=== PATIENT | male | born 1945 | race Caucasian/White ===

== ENCOUNTER → 2016-06-29 | Outpatient (CLI) | payer OTHER, BC ==
[~2016-06-29] MED LIST: ASPI81TA28 PO; CALC600T9 PO; EZET10TA47 PO; IBUP-103 PO; IPRA1AER2 INH; LEVO175T3 PO; MULT-506 PO; OMEG10007 PO
[2016-06-29 13:24] LABS: THYROID STIMULATING HORMONE 1.72 uIu/ml (0.300-4.500)
== END | disposition home or self-care (01) ==
LOC: C.LABBFT 08:13
PROVIDERS: ATTEND Internal Medicine Endocrinology, Diabetes & Metabolism
DX: E89.0 Postprocedural hypothyroidism (principal)

== ENCOUNTER → 2016-08-05 | Outpatient (CLI) | payer OTHER, BC ==
[2016-08-05 12:59] LABS: BLOOD UREA NITROGEN 22 mg/dl (7-18); BUN/CREATININE RATIO 30.9 (10-20); CALCIUM 9.1 mg/dl (8.5-10.1); CARBON DIOXIDE 27 mmol/L (21-32); CHLORIDE 107 mmol/L (98-107); GLUCOSE 99 mg/dl (70-99); POTASSIUM 4.3 mmol/L (3.5-5.1); SODIUM 141 mmol/L (136-145)
[2016-08-05 13:06] LABS: ESTIMATED AVERAGE GLUCOSE 114 mg/dl; HA1C FLAG Normal (Normal)
[2016-08-05 13:19] LABS: CHOLESTEROL 197 mg/dl (0-200); CHOLESTEROL/HDL RATIO 4.2; HDL CHOLESTEROL 47 mg/dl; TRIGLYCERIDES 218 mg/dl (0-150); VERY LOW DENSITY LIPOPROT CALC 44 mg/dl
== END | disposition home or self-care (01) ==
LOC: C.LABSPEC 12:21
PROVIDERS: ATTEND Internal Medicine
DX: E11.9 Type 2 diabetes mellitus without complications (principal); E78.5 Hyperlipidemia, unspecified

== ENCOUNTER → 2016-09-06 | Outpatient (CLI) | payer OTHER, BC ==
[2016-09-06 12:39] LABS: THYROID STIMULATING HORMONE 0.237 uIu/ml (0.300-4.500)
== END | disposition home or self-care (01) ==
LOC: C.LABBFT 07:50
PROVIDERS: ATTEND Internal Medicine Endocrinology, Diabetes & Metabolism
DX: E89.0 Postprocedural hypothyroidism (principal)

== ENCOUNTER → 2016-12-06 | Outpatient (CLI) | payer OTHER, BC ==
[2016-12-06 13:52] LABS: ALT/SGPT 26 U/L (12-78); AST/SGOT 13 U/L (15-37); BLOOD UREA NITROGEN 22 mg/dl (7-18); BUN/CREATININE RATIO 29.2 (10-20); CALCIUM 8.8 mg/dl (8.5-10.1); CARBON DIOXIDE 25 mmol/L (21-32); CHLORIDE 109 mmol/L (98-107); CHOLESTEROL 200 mg/dl (0-200); CREATININE 0.74 mg/dl (0.60-1.40); GLUCOSE 95 mg/dl (70-99); POTASSIUM 4.1 mmol/L (3.5-5.1); SODIUM 141 mmol/L (136-145)
[2016-12-06 13:57] LABS: ALB/GLOB RATIO 1.1 (0.9-2); ALKALINE PHOSPHATASE 119 U/L (45-117); CHOLESTEROL/HDL RATIO 4.2; HDL CHOLESTEROL 48 mg/dl; TRIGLYCERIDES 170 mg/dl (0-150); VERY LOW DENSITY LIPOPROT CALC 34 mg/dl
[2016-12-06 14:06] LABS: ESTIMATED AVERAGE GLUCOSE 114 mg/dl; HA1C FLAG Normal (Normal)
--- NOTE | 2016-12-14 06:20 | CODING QUERY MEDICAL NECESSITY ---
SUPPORTING DIAGNOSIS NEEDED Dr. Ke Darling, A supporting diagnosis is required for the test/procedure performed on this patient in order for us to be reimbursed by the patient's insurance. Please provide a supporting diagnosis for the following test/procedure listed below next to the test name along with your signature. *If there is no additional diagnosis for this patient that would support the following test/procedure please document that below next to the test/procedure. Test(s)/Procedure(s) that require a supporting diagnosis: * [id number] GLYCATED HEMOGLOBIN DIAGNOSIS: DATE OF SERVICE: 12/06/16 Provider Signature: Date: Thank you Jose Cordon [facility] Information Management Once completed, please kindly fax back to [phone] For questions please call [phone]
== END | disposition home or self-care (01) ==
LOC: C.LABSPEC 12:20
PROVIDERS: ATTEND Internal Medicine
DX: Z11.59 Encounter for screening for other viral diseases (principal); E11.9 Type 2 diabetes mellitus without complications

== ENCOUNTER → 2017-04-07 | Outpatient (CLI) | payer OTHER, BC ==
[2017-04-07 14:15] LABS: ESTIMATED AVERAGE GLUCOSE 120 mg/dl; HA1C FLAG Normal (Normal)
[2017-04-07 14:21] LABS: ALT/SGPT 29 U/L (12-78); AST/SGOT 14 U/L (15-37); BLOOD UREA NITROGEN 19 mg/dl (7-18); BUN/CREATININE RATIO 26.7 (10-20); CALCIUM 8.9 mg/dl (8.5-10.1); CARBON DIOXIDE 24 mmol/L (21-32); CHLORIDE 106 mmol/L (98-107); CHOLESTEROL 220 mg/dl (0-200); CREATININE 0.72 mg/dl (0.60-1.40); GLUCOSE 100 mg/dl (70-99); SODIUM 140 mmol/L (136-145)
[2017-04-07 14:29] LABS: ALKALINE PHOSPHATASE 122 U/L (45-117); CHOLESTEROL/HDL RATIO 3.9; HDL CHOLESTEROL 56 mg/dl; TRIGLYCERIDES 204 mg/dl (0-150); VERY LOW DENSITY LIPOPROT CALC 41 mg/dl
== END | disposition home or self-care (01) ==
LOC: C.LABSPEC 12:51
PROVIDERS: ATTEND Internal Medicine
DX: E03.9 Hypothyroidism, unspecified (principal); E11.9 Type 2 diabetes mellitus without complications; E78.5 Hyperlipidemia, unspecified

== ENCOUNTER → 2017-04-08 | Outpatient (CLI) | payer OTHER, BC | END | disposition home or self-care (01) | LOC: C.LABSPEC 13:14 | PROVIDERS: ATTEND Internal Medicine | DX: Z12.11 Encounter for screening for malignant neoplasm of colon (principal) ==

== ENCOUNTER → 2017-06-22 | Outpatient (CLI) | payer OTHER, BC | LOC: C.LABBFT 07:21 | PROVIDERS: ATTEND Internal Medicine Endocrinology, Diabetes & Metabolism | DX: C73 Malignant neoplasm of thyroid gland (principal); E89.0 Postprocedural hypothyroidism ==

== ENCOUNTER → 2017-08-08 | Outpatient (CLI) | payer OTHER, BC ==
[2017-08-08 14:20] LABS: HEMOGLOBIN A1C 5.8 % (4.5-5.6)
[2017-08-08 16:09] LABS: BLOOD UREA NITROGEN 19 mg/dl (7-18); CALCIUM 8.8 mg/dl (8.5-10.1); CARBON DIOXIDE 24 mmol/L (21-32); CHOLESTEROL 152 mg/dl (0-200); CREATININE 0.71 mg/dl (0.60-1.40); GLUCOSE 98 mg/dl (70-99); POTASSIUM 4.3 mmol/L (3.5-5.1); SODIUM 139 mmol/L (136-145)
[2017-08-08 16:17] LABS: LDL CHOLESTEROL (DIRECT) 83 mg/dl
== END | disposition home or self-care (01) ==
LOC: C.LABSPEC 12:48
PROVIDERS: ATTEND Internal Medicine
DX: E11.9 Type 2 diabetes mellitus without complications (principal); E78.5 Hyperlipidemia, unspecified

== ENCOUNTER → 2017-12-08 | Outpatient (CLI) | payer OTHER, BC ==
[2017-12-08 13:30] LABS: ALBUMIN 3.6 gm/dl (3.4-5.0); ALKALINE PHOSPHATASE 118 U/L (45-117); ALT/SGPT 25 U/L (12-78); AST/SGOT 11 U/L (15-37); BLOOD UREA NITROGEN 22 mg/dl (7-18); CALCIUM 8.6 mg/dl (8.5-10.1); CARBON DIOXIDE 23 mmol/L (21-32); CHOLESTEROL 165 mg/dl (0-200); CREATININE 0.76 mg/dl (0.60-1.40); GLUCOSE 106 mg/dl (70-99); LDL CHOLESTEROL (DIRECT) 100 mg/dl; POTASSIUM 4.1 mmol/L (3.5-5.1); SODIUM 139 mmol/L (136-145); TOTAL PROTEIN 7.1 gm/dl (6.4-8.2)
[2017-12-08 14:41] LABS: HEMOGLOBIN A1C 5.8 % (4.5-5.6)
== END | disposition home or self-care (01) ==
LOC: C.LABSPEC 09:45
PROVIDERS: ATTEND Internal Medicine
DX: E11.9 Type 2 diabetes mellitus without complications (principal); E78.5 Hyperlipidemia, unspecified

== ENCOUNTER 2021-07-06 09:02 | Inpatient (IN) ==
[2021-07-06] MEDS ORDERED: MECLIZINE HCL 25 MG TAB PO STA (09:21)
[2021-07-06] MEDS ORDERED: LEVOTHYROXINE SODIUM 175 MCG TABLET PO STA (09:21)
[2021-07-06] MEDS ORDERED: SODIUM CHLORIDE 0.9% 1000ML 1,000 ML IV ONE (09:21)
--- NOTE | 2021-07-06 09:26 | Emergency Department Note ---
Impression & Plan Vertigo, Ataxia, Ambulatory dysfunction ED Provider Note Name: CARLITO GAMINO Age: 75 Sex: M Arrives Via: Ambulance Informant: Patient, Family ED Provider: Thanh Welch MD Chief Complaint: Dizziness Impression: As per impressions above Medical Decision Makin-year-old gentleman with a history of diabetes, hypothyroid, COPD, prostate cancer, hyperlipidemia there is a remote history of a possible stroke in the arrives with 24 hours of dizziness. Symptoms on and off but are worse with sitting up and very much appear BPPV in nature. Patient appears well while sitting in bed but the moment you sit him up or move him he essentially is completely ataxic and unable to ambulate properly. He was given meclizine and some fluids initially without much improvement. He was given Ativan IV which he tolerated well and well much improved he is still unable to ambulate properly. A CTA of the head and neck was negative for acute findings other than a small aneurysm anteriorly which I do not feel has a cause in his current symptoms. His labs/EKG/other work-up is unremarkable. Given patient's persistent ambulatory dysfunction and a high fall risk and nowhere safe to discharge him otherwise he will be hospitalized at this time. I do not feel patient has an evidence of meningitis nor would he be a stroke alert given symptoms are 24 hours. Patient is comfortable this plan as is the family. Prior Medical Record and Triage/Nursing Notes reviewed by Me Additional history obtained from chart Differentials:Benign positional vertigo, dehydration, hypovolemia, anemia, tumor, infection, hypoglycemia, electrolyte abnormalities, cardiac sources, intracerebral event, toxicologic, neurologic, as well as other pathologies. Vital Signs: reviewed and remarkable for no significant abnormalities Interventions: Meclizine 25 mg p.o., normal saline bolus IV, Ativan 1 mg IV Labs:Reviewed and remarkable for no significant abnormalities Imaging:CTA of the head and neck without acute findings other than small anterior aneurysm see radiologist read below EKG:Per My Interpretation: Indication Dizziness: NSR 74 bpm, qtc 435. No Ectopy. No Ischemia. Compared to EKG 09/12/15, no significant changes. Consults:Dr. Eloisa Howell Hospitalist Plan: Disposition:Hospitalization. Condition: Good History of Present Illness:75-year-old male arrives for evaluation of dizziness. Patient notes for the last 2 days he has been having several episodes of dizziness. He describes the dizziness as the world is spinning and he cannot walk straight. He denies any slurred speech or facial droop. He has not noticed any focal weakness of arms or legs. States symptoms are worse when he sits up but improved after laying back down. This morning he was unable to get out of bed due to the symptoms and called 911. Patient notes currently minimal dizziness with some mild posterior neck stiffness. The neck stiffness has been ongoing for the last 2 days as well is primarily left and upper. He did discuss this with his PCP over the phone who advised to call 911 and go directly to the ER. Patient has taken no medications for this. He has had no recent head injuries, falls, trauma. He has had no recent car accidents. Patient denies any current headache, ear pain, sore throat, fevers, chills, blurry vision, chest pain, shortness of breath, abdominal pain, back pain, urinary/bowel symptoms, leg swelling, rashes nor other symptoms. Has had no recent bleeding or bruising. 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 He is unsure why the artery was blocked. He currently takes aspirin 81 mg daily and no other blood thinners. ROS: See above HPI for pertinent positives & negatives. A total of 10 systems reviewed and were otherwise negative. Past Medical History:See Below Past Surgical History:See Below Family History:See Below Social History:See Below Home Medications:See Below Allergies:No known drug allergies Vitals:Blood Pressure: 133/81, Pulse 83, RR 16, T 36.6C, O2 97% on RA Physical Exam: GENERAL: Patient is anxious appearing and in mild distress. EYES: No scleral icterus, unremarkable pupils. ENT: Mucous membranes moist, no nasal congestion. Right TM normal, left TM occluded with Cerumen NECK: No masses appreciated, nomeningismus, trachea is midline. RESPIRATORY: No dyspnea. Clear to auscultation and equal bilaterally. No wheeze, no rhonchi. CARDIOVASCULAR: Regular rate and rhythm.No murmurs, rubs, gallops appreciated. GASTROINTESTINAL: Abdomen soft, non-tender, no peritonitis.Bowel sounds posi tive.No masses appreciated. BACK: No midline tenderness, no CVA tenderness EXTREMITIES: Normal motion all extremities, no cyanosis, no edema. NEUROLOGIC: Alert and oriented, no acute motor or sensory deficits, no focal weakness, cranial nerves grossly intact. SKIN: No rash, no jaundice, no diaphoresis. PSYCH: Appropriate GCS: 15 ED Course: Times/Reassessments: Patient feeling better but still unable to ambulate without severe vertiginous symptoms hospitalist consulted. Thanh Welch MD Past Med/Surg History Medical History Diabetes Elevated PSA Hx of thyroid cancer Hypercholesterolemia Hypothyroidism, postablative Prostate cancer (02/07/20) PVD (peripheral vascular disease) (05/08/13) Surgical History H/O amputation of lesser toe (~2009) H/O extremity bypass graft 2010 (Left Leg - Kj), 2012 (Use graft from right into left - Dr. Ely) H/O total knee replacement (~2014) Right History of thyroidectomy (~2010) Left Family History Father , Passed age 71 of metastatic prostate cancer Diabetes Mother , Passed age 88 of natural causes (alzheimers) No problems noted. Brother Prostate cancer, Onset Age: 63 Hx Prostatectomy & Radiation Brother No problems noted. Brother No problems noted. Brother No problems noted. Brother No problems noted. Sister No problems noted. Sister No problems noted. Daughter No problems noted. Son No problems noted. Son No problems noted. Social History Smoking Status: Former smoker packs per day: 1.5; Years Smoked: 50; Cigarettes Per Day: 2.5 PPD per 60 years; Smoking End Date: 5 years ago; Second Hand Exposure: No; Tobacco Cessation Education Requested by Patient: No Hx Alcohol Use: Yes Alcohol type: beer Alcohol Intake Frequency: Monthly or Less Hx Substance Use: No Preferred Language: [place] Visual Impairment: Limited Hearing Ability: Normal Tire Setter Required: No Beliefs That Will Affect Care: None marital status: / Current Living Situation: Alone Current Living Situation Comment: Lives at home alone current occupational status: retired 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 Other Information That Helps Us Care for You: No Feels Safe at Home: Yes Safety Concerns: Feels Safe At This Time caffeine: Yes (2 cups of coffee/day ) during the past year weight has: remained stable Dental Care, Regularly: No Assistive Devices: Denture - Upper, Denture - Lower and Glasses Assistive Devices Comment: Glasses and upper and lower dentures w/ pt Allergies Allergies Allergy/AdvReac Type Severity Reaction Status Date / Time No Known Allergies Allergy Verified 07/06/21 10:07 Home Meds Home Medications Medication Instructions Recorded Confirmed multivitamin (Daily Multi-Vitamin) 1 tab PO DAILY 05/10/19 07/06/21 omega-3 fatty acids 1,000 mg 1,000 mg PO DAILY 05/10/19 07/06/21 capsule calcium carbonate 600 mg calcium 600 mg PO BID 02/26/20 07/06/21 (1,500 mg) tablet (Calcium) cinnamon bark 500 mg capsule 1,000 mg PO DAILY cap 02/26/20 07/06/21 (Cinnamon) metformin 500 mg tablet 1,000 mg PO DAILY tab 02/26/20 07/06/21 rosuvastatin 5 mg tablet 5 mg PO HS tab 02/26/20 07/06/21 fluticasone propionate 50 1 spray INTRANASAL BID PRN 04/07/20 07/06/21 mcg/actuation nasal spray,suspension tamsulosin 0.4 mg capsule 0.4 mg PO DAILY cap 03/13/21 07/06/21 aspirin 81 mg tablet,delayed 81 mg PO DAILY 07/06/21 07/06/21 release ipratropium 0.5 mg-albuterol 3 mg 3 ml INHALATION Q6H PRN 07/06/21 07/06/21 (2.5 mg base)/3 mL nebulization soln Previous Rx's Medication Instructions Recorded levothyroxine 150 mcg tablet See Rx Instructions PO .COMPLEX 06/03/21 #45 tab levothyroxine 175 mcg tablet See Rx Instructions PO .COMPLEX 06/03/21 #45 tab Results & Data (ED) Vital Signs Vital Signs - 24 hr 07/06/21 12:10 Pulse Rate [Finger] 76 Respiratory Rate 18 Pulse Oximetry 94 Oxygen Delivery Method Room Air Laboratory Data Result diagrams: 07/07/21 07:02 07/07/21 07:02 Lab Results 07/06/21 07/06/21 07/06/21 Range/Units 09:13 09:13 09:13 WBC 4.47 L (4.8-10.8) K/uL RBC 5.07 (4.7-6.1) M/uL Hgb 15.7 (14.0-18.0) g/dL Hct 45.5 (42-52) % MCV 89.7 (80-100) fL MCH 31.0 (25-34) pg MCHC 34.5 (32-36) g/dL RDW Std Deviation 45.2 (36.4-46.3) fL RDW Coeff of Elise 13.8 (11.5-14.5) % Plt Count 218 (130-400) K/uL MPV 10.2 (7.4-10.4) fL Immature Gran % (Auto) 0.0 % Neut % (Auto) 63.8 % Lymph % (Auto) 25.5 % Ballard % (Auto) 7.6 % Eos % (Auto) 2.7 % Baso % (Auto) 0.4 % Neut # (Auto) 2.85 (1.4-6.5) K/uL Lymph # (Auto) 1.14 L (1.2-3.4) K/uL Ballard # (Auto) 0.34 (0.11-0.59) K/uL Eos # (Auto) 0.12 (0-0.5) K/uL Baso # (Auto) 0.02 (0-0.2) K/uL Immature Gran # (Auto) 0.00 (0.00-0.02) K/uL ESR (0-20) mm/hr Sodium 140 (136-145) mmol/L Potassium (3.5-5.1) mmol/L Chloride 109 H (98-107) mmol/L Carbon Dioxide 22 (21-32) mmol/L Anion Gap 9 (3-11) BUN 16 (6-23) mg/dl Creatinine 0.76 (0.6-1.4) mg/dl Est Cr Clr Drug Dosing 101.7 ml/min Est GFR ( Amer) 104.2 ml/min Est GFR (Non-Af Amer) 89.9 ml/min BUN/Creatinine Ratio 21.1 H (10-20) Glucose 99 (70-99(Fasting)) mg/dl Calcium 9.5 (8.5-10.1) mg/dl Total Creatine Kinase (30-223) U/L Troponin I < 0.03 (0-0.04) ng/ml TSH 2.162 (0.300-4.500) uIu/ml 07/06/21 07/06/21 07/06/21 Range/Units 09:13 10:55 10:55 WBC (4.8-10.8) K/uL RBC (4.7-6.1) M/uL Hgb (14.0-18.0) g/dL Hct (42-52) % MCV (80-100) fL MCH (25-34) pg MCHC (32-36) g/dL RDW Std Deviation (36.4-46.3) fL RDW Coeff of Elise (11.5-14.5) % Plt Count (130-400) K/uL MPV (7.4-10.4) fL Immature Gran % (Auto) % Neut % (Auto) % Lymph % (Auto) % Ballard % (Auto) % Eos % (Auto) % Baso % (Auto) % Neut # (Auto) (1.4-6.5) K/uL Lymph # (Auto) (1.2-3.4) K/uL Ballard # (Auto) (0.11-0.59) K/uL Eos # (Auto) (0-0.5) K/uL Baso # (Auto) (0-0.2) K/uL Immature Gran # (Auto) (0.00-0.02) K/uL ESR 13 (0-20) mm/hr Sodium (136-145) mmol/L Potassium 3.9 (3.5-5.1) mmol/L Chloride (98-107) mmol/L Carbon Dioxide (21-32) mmol/L Anion Gap (3-11) BUN (6-23) mg/dl Creatinine (0.6-1.4) mg/dl Est Cr Clr Drug Dosing ml/min Est GFR ( Amer) ml/min Est GFR (Non-Af Amer) ml/min BUN/Creatinine Ratio (10-20) Glucose (70-99(Fasting)) mg/dl Calcium (8.5-10.1) mg/dl Total Creatine Kinase 43 (30-223) U/L Troponin I (0-0.04) ng/ml TSH (0.300-4.500) uIu/ml Administered Medications Acetaminophen (Acetaminophen 325 Mg Tab) 650 mg PO Q4H PRN PRN Reason: Pain or Fever Stop: 08/05/21 13:52 Last Admin: 07/07/21 08:12 Dose: 650 mg Documented by: [id number] Aspirin (Aspirin 81 Mg Ectab) 81 mg PO DAILY [facility] Stop: 08/05/21 20:01 Last Admin: 07/07/21 08:13 Dose: 81 mg Documented by: [id number] Admin: 07/06/21 20:55 Dose: 81 mg Documented by: [id number] Calcium Carbonate (Calcium Carbonate 1250mg Tab) 1,250 mg PO BID [facility] Stop: 08/05/21 20:59 Last Admin: 07/07/21 08:13 Dose: 1,250 mg Documented by: [id number] Admin: 07/06/21 21:17 Dose: 1,250 mg Documented by: [id number] Enoxaparin Sodium (Enoxaparin Inj 40 Mg/0.4 Ml Syr) 40 mg SQ QAM [facility] Stop: 08/06/21 08:59 Last Admin: 07/07/21 08:14 Dose: 40 mg Documented by: [id number] Insulin Aspart (Insulin Aspart Per Unit) 0 units SC ACHS [facility] Stop: 08/05/21 16:29 Last Admin: 07/07/21 08:14 Dose: Not Given Documented by: [id number] Admin: 07/06/21 21:27 Dose: 2 units Documented by: [id number] Cosigned by: [id number] Admin: 07/06/21 15:57 Dose: Not Given Documented by: [id number] Levothyroxine Sodium (Levothyroxine Sodium 150 Mcg Tablet) 150 mcg PO Q2D@0630 [facility] Stop: 08/06/21 06:29 Last Admin: 07/07/21 05:44 Dose: 150 mcg Documented by: [id number] Meclizine HCl (Meclizine Hcl 25 Mg Tab) 25 mg PO TID PRN PRN Reason: vertigo Stop: 08/05/21 17:41 Last Admin: 07/07/21 09:32 Dose: 25 mg Documented by: [id number] Rosuvastatin Calcium (Rosuvastatin Calcium 5 Mg Tab) 5 mg PO HS [facility] Stop: 08/05/21 20:59 Last Admin: 07/06/21 21:17 Dose: 5 mg Documented by: [id number] Tamsulosin HCl (Tamsulosin Hcl 0.4 Mg Cap) 0.4 mg PO DAILY [facility] Stop: 08/06/21 08:59 Last Admin: 07/07/21 08:13 Dose: 0.4 mg Documented by: [id number] Discontinued Medications Gadobutrol (Gadobutrol 65ml Vial) 9.5 ml IV ONCE ONE Stop: 07/06/21 15:35 Last Admin: 07/06/21 15:34 Dose: 9.5 ml Documented by: [id number] Sodium Chloride (Nss 1000ml) 1,000 mls @ 999 mls/hr IV .Q1H1M ONE Stop: 07/06/21 10:21 Last Infusion: 07/06/21 10:23 Dose: 0 mls/hr Documented by: [id number] Admin: 07/06/21 09:28 Dose: 999 mls/hr Documented by: [id number] Ioversol (Optiray 320 125ml) 121 ml IV ONCE ONE Stop: 07/06/21 11:42 Last Admin: 07/06/21 11:41 Dose: 121 ml Documented by: [id number] Levothyroxine Sodium (Levothyroxine Sodium 175 Mcg Tablet) 175 mcg PO NOW STA Stop: 07/06/21 09:22 Last Admin: 07/06/21 11:51 Dose: 175 mcg Documented by: [id number] Lorazepam (Lorazepam 2 Mg/1 Ml Vial) 1 mg IV NOW STA Stop: 07/06/21 11:02 Last Admin: 07/06/21 11:12 Dose: 1 mg Documented by: [id number] Meclizine HCl (Meclizine Hcl 25 Mg Tab) 25 mg PO NOW STA Stop: 07/06/21 09:22 Last Admin: 07/06/21 09:28 Dose: 25 mg Documented by: [id number] Discharge Plan Visit Data Chief Complaint: Illness ED Provider: Thanh Welch Discharge Problem: Vertigo, Ataxia, Ambulatory dysfunction Patient Disposition: Admitted As Inpatient Discharge Instructions Interventions: ED Discharge Assessment Last Done: 07/06/21 17:38
[2021-07-06 09:29] LABS: Basophils # (auto) 0.02 K/uL (0-0.2); Basophils % (auto) 0.4 %; Eosinophils # (auto) 0.12 K/uL (0-0.5); Eosinophils % (auto) 2.7 %; Hematocrit (blood only) 45.5 % (42-52); Hemoglobin 15.7 g/dL (14.0-18.0); Lymphocytes # (auto) 1.14 K/uL (1.2-3.4); Lymphocytes % (auto) 25.5 %; Mean Corpuscular Hgb Conc 34.5 g/dL (32-36); Mean Corpuscular Volume 89.7 fL (80-100); Mean Platelet Volume 10.2 fL (7.4-10.4); Monocytes # (auto) 0.34 K/uL (0.11-0.59); Monocytes % (auto) 7.6 %; Neutrophils # (auto) 2.85 K/uL (1.4-6.5); Neutrophils % (auto) 63.8 %; Platelet Count 218 K/uL (130-400); RDW Coefficient of Variation 13.8 % (11.5-14.5); RDW Standard Deviation 45.2 fL (36.4-46.3); Red Blood Count 5.07 M/uL (4.7-6.1); White Blood Count 4.47 K/uL (4.8-10.8)
[2021-07-06 09:45] LABS: Troponin I < 0.03 ng/ml (0-0.04)
[2021-07-06 10:09] LABS: Anion Gap 9 (3-11); BUN Creatinine Ratio 21.1 (10-20); Blood Urea Nitrogen 16 mg/dl (6-23); Calcium 9.5 mg/dl (8.5-10.1); Carbon Dioxide 22 mmol/L (21-32); Chloride 109 mmol/L (98-107); Creatinine Clr Calc Pharmacy 101.7 ml/min; Est GFR (African American) 104.2 ml/min; Est GFR (Non-African American) 89.9 ml/min; Glucose 99 mg/dl (70-99(Fasting)); Sodium 140 mmol/L (136-145)
[2021-07-06] MEDS ORDERED: LORazepam 2 MG/1 ML VIAL IV STA (11:01)
[2021-07-06] MEDS ORDERED: OPTIRAY 320 125ml IV ONE (11:41)
--- NOTE | 2021-07-06 12:16 | CT Scan Report ---
HEAD & NECK CTA HISTORY: vertiginous symptoms with posterior headache TECHNIQUE: Multiaxial CT images of the head were performed both before and after the intravenous admi nistration of contrast to evaluate the major cerebral vessels. Multiaxial CT images of the neck were also performed following the intravenous administration of contrast to evaluate the major cervical ve ssels. Maximum intensity projection images were also obtained. A dose lowering technique was utilized adhering to the principles of ALARA. COMPARISON: Sinus CT 09/03/2015. FINDINGS: Head CT: There is no mass, hematoma, midline shift, or acute infarct. Postoperative changes in mild m ucosal thickening at the ethmoid air cells. The mastoid air cells are clear. The calvarium and skull base are intact. Mild atrophic changes within the brain. Head CTA: Visualized intracranial internal carotid arteries, distal vertebral arteries, and basilar a rtery are widely patent. 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 The major dural venous sinuses are patent. Moderate calcified plaque with in the bilateral carotid siphons. There is a 3 mm saccular aneurysm extending posteriorly from the op hthalmic segment of the right internal carotid artery. This is seen on axial image 90 of 256. Neck CTA: The aortic arch and proximal great vessels are widely patent. There is no significant sten osis, occlusion, or dissection identified within the bilateral common carotid, internal carotid, or v ertebral arteries. Mild emphysema. Moderate to severe degenerative disc disease within the cervical s pine. Mild calcified plaque within the bilateral carotid bifurcations. IMPRESSION: 1. 1. No acute intracranial abnormality. 2. No significant stenosis or occlusion within the cerebral arteries. 3. A 3 mm aneurysm extending posteriorly from the ophthalmic segment of the right internal carotid ar edmundo. 4. No significant stenosis, occlusion, or dissection identified within the carotid or vertebral arter ies. ACT 112: Negative or not required by law. Electronically signed by: Sony Sanchez M.D. 07/06/2021 12:15 PM
--- NOTE | 2021-07-06 13:02 | Electrocardiogram Report ---
Test Reason : Blood Pressure : / mmHG Vent. Rate : 074 BPM Atrial Rate : 074 BPM P-R Int : 178 ms QRS Dur : 078 ms QT Int : 392 ms P-R-T Axes : 068 013 032 degrees QTc Int : 435 ms Normal sinus rhythm Normal ECG When compared with ECG of 12-SEP-2015 10:19, Premature atrial complexes are no longer Present Confirmed by Serg Pacheco ([id number]) on 07/06/2021 1:01:48 PM Referred By: REFERRED SELF Confirmed By:Serg Pacheco
--- NOTE | 2021-07-06 13:19 | History & Physical Report ---
Date of Service July 06, 2021 Assessment & Plan (1) Vertigo: Plan: -Diagnosis includes vertigo of peripheral vs central origin, patient has been experiencing symptoms intermittently for 5 days. -CTA head+neck showed no intracranial abnormality or significant stenosis of cerebral/carotid/vertebral arteries. A 3 mm ophthalmic artery aneurysm was noted, however it is unlikely to be related to today's presentation. -MRI-brain w and w/o contrast showed no acute intracranial abnormality. Mild chronic sinus disease with a small right mastoid effusion was noted. -Will continue meclizine 25 mg TID PRN. (2) Hypothyroidism, postablative: Plan: -Thyroidectomy in 2010 2/2 thyroid cancer. -TSH 2.162 in ED. -Received levothyroxine 175 mcg in ED. Patient takes alternating daily doses of 150 and 175 mcg. (3) Diabetes: Plan: -On metformin at home, last A1c in March 2021 was 5.7 -Accucheks achs with sliding scale insulin if needed. (4) Prostate cancer: Plan: -Patient states he is in remission, has close follow up with urology and oncology. -Continue flomax 0.4 mg daily. (5) PVD (peripheral vascular disease): Plan: -Had a toe amputation in 2009 and LLE bypass in 2012. -On ASA 81 daily, will continue this. (6) Hypercholesterolemia: Plan: -Continue rosuvastatin 5 mg daily. (7) COPD (chronic obstructive pulmonary disease): Plan: -Patient states it is stable, takes his home inhalers on PRN basis. Will order DuoNeb PRN. Plan: -Inpatient med/surg on tele -SCDs and Lovenox for DVT prophylaxis. -Full Code. History of Present Illness Chief Complaint: vertigo Primary Care Provider: Demetrius Holloway MD Patient is a 75 y/o male with a PMH of prostate CA, thyroid CA s/p thyroidectomy, hypothyroidism, diabetes, and peripheral vascular disease who presents with headache and dizziness for the past 5 days. This started Tuesday when he tried to get up from his recliner but felt dizzy and had to wait several minutes before walking. He states that the room seemed as if it was spinning, describes it as "the feeling you get when you stand up too fast". After time, the dizziness stopped and he was able to continue with ambulation. This occurred once per day over the next 3 days until yesterday, 07/05, when he noted the episodes became more frequent and severe, stating that nearly every time he stood up he was feeling so dizzy that he was concerned he was too off balance to ambulate. He did eventually get up last night to head to bed and nearly fell, however caught his balance on a nearby chair. This morning, he tried to rise from bed but immediately felt dizzy and fell back on to the bed, which prompted him to call his PCP who advised him to present to the ED for further evaluation. Patient notes with these episodes, he has had intermittent ringing in his ears and a headache caused by neck pain that occurs with head movements. Lying down and minimizing head movement provides some alleviation of headache and dizziness. Denies fever/chills, myalgias, confusion, syncope, weakness, numbness, tingling, loss of sensation, radiation of pain down arms, speech difficulties, vision changes, chest pain, palpitations, shortness of breath, abdominal pain, nausea, vomiting, constipation, diarrhea, urinary symptoms. Vital signs stable, BP slightly elevated at 144/66, otherwise within normal limits. WBC 4.47, otherwise BMP, troponin, TSH all within normal limits. Glucose 99. EKG showed NSR, CTA head and neck showed no acute intracranial abnormality or any significant stenosis within cerebral/carotid/vertebral arteries. 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 Hospitalist service was consulted for further evaluation and admission. Allergies Allergy/AdvReac Type Severity Reaction Status Date / Time No Known Allergies Allergy Verified 07/06/21 10:07 Home Medications Medication Instructions Recorded Confirmed Type multivitamin (Daily Multi-Vitamin) 1 tab PO DAILY 05/10/19 07/06/21 History omega-3 fatty acids 1,000 mg 1,000 mg PO DAILY 05/10/19 07/06/21 History capsule calcium carbonate 600 mg calcium 600 mg PO BID 02/26/20 07/06/21 History (1,500 mg) tablet (Calcium) cinnamon bark 500 mg capsule 1,000 mg PO DAILY cap 02/26/20 07/06/21 History (Cinnamon) metformin 500 mg tablet 1,000 mg PO DAILY tab 02/26/20 07/06/21 History rosuvastatin 5 mg tablet 5 mg PO HS tab 02/26/20 07/06/21 History fluticasone propionate 50 1 spray INTRANASAL BID PRN 04/07/20 07/06/21 History mcg/actuation nasal spray,suspension tamsulosin 0.4 mg capsule 0.4 mg PO DAILY cap 03/13/21 07/06/21 History levothyroxine 150 mcg tablet See Rx Instructions PO .COMPLEX 06/03/21 07/06/21 Rx #45 tab levothyroxine 175 mcg tablet See Rx Instructions PO .COMPLEX 06/03/21 07/06/21 Rx #45 tab aspirin 81 mg tablet,delayed 81 mg PO DAILY 07/06/21 07/06/21 History release ipratropium 0.5 mg-albuterol 3 mg 3 ml INHALATION Q6H PRN 07/06/21 07/06/21 History (2.5 mg base)/3 mL nebulization soln Past Med/Surg History Medical History Diabetes Elevated PSA Hx of thyroid cancer Hypercholesterolemia Hypothyroidism, postablative Prostate cancer (02/07/20) PVD (peripheral vascular disease) (05/08/13) Surgical History H/O amputation of lesser toe (~2009) H/O extremity bypass graft 2010 (Left Leg - [place]), 2012 (Use graft from right into left - Dr. Ely) H/O total knee replacement (~2014) Right History of thyroidectomy (~2010) Left Family History Father , Passed age 71 of metastatic prostate cancer Diabetes Mother , Passed age 88 of natural causes (alzheimers) No problems noted. Brother Prostate cancer, Onset Age: 63 Hx Prostatectomy & Radiation Brother No problems noted. Brother No problems noted. Brother No problems noted. Brother No problems noted. Sister No problems noted. Sister No problems noted. Daughter No problems noted. Son No problems noted. Son No problems noted. Social History Smoking Status: Former smoker packs per day: 1.5; Years Smoked: 50; Cigarettes Per Day: 2.5 PPD per 60 years; Smoking End Date: 5 years ago; Second Hand Exposure: No; Tobacco Cessation Education Requested by Patient: No Hx Alcohol Use: Yes Alcohol type: beer Alcohol Intake Frequency: Monthly or Less Hx Substance Use: No Preferred Language: Maori Visual Impairment: Limited Hearing Ability: Normal Curriculum Development Manager Required: No Beliefs That Will Affect Care: None marital status: / Current Living Situation: Alone Current Living Situation Comment: Lives at home alone current occupational status: retired 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 Other Information That Helps Us Care for You: No Feels Safe at Home: Yes Safety Concerns: Feels Safe At This Time caffeine: Yes (2 cups of coffee/day ) during the past year weight has: remained stable Dental Care, Regularly: No Assistive Devices: Denture - Upper, Denture - Lower and Glasses Assistive Devices Comment: Glasses and upper and lower dentures w/ pt Review of Systems Review of Systems: Constitutional: No fever, sweats or chills Eyes: No diplopia, no worsening or blurred vision ENT: normal hearing, no trouble swallowing Respiratory: No cough, sputum, dyspnea at rest or on exertion Cardiovascular: No chest pain, tightness or palpitations Abdomen: No pain, nausea, vomiting, diarrhea or constipation Musculoskeletal: Reports b/l neck pain exacerbated by head movement; no other joint pain, calf pain, or joint swelling Neurologic: Reports posterior headache exacerbated by head movement; No weakness, numbness/tingling Psychiatric: No anxiety or depression Skin: No rash or itch Physical Exam Physical Exam: General: awake, alert, no apparent distress Head: Normocephalic, atraumatic ENT: PERRL, EOMI, no pharyngeal exudate, mucous membranes moist Chest: Clear to auscultation, on room air, no adventitious breath sounds Cardiac: Regular rate and rhythm, no murmur, no JVD, normal peripheral pulses, good capillary refill Abdominal: Central abdominal pain with light palpation, no radiation or guarding; NABS x 4 quadrants, soft MSK: b/l neck pain with palpation of occipital, cervical paraspinal muscles, as well as with neck rotation and flexion; no c spine tenderness, no step offs Extremities: Normal inspection, no peripheral edema or erythema, calfs nontender to palpation Psych: Normal mood and affect Neuro: AAO x 3, strength intact bilaterally and rated 5/5, no motor deficits, speech is clear, no peripheral sensory deficits Skin: no rash or erythema Results & Data Results & Data ([facility]) Vital Signs (Past 12 Hours) Vital Signs Temp Pulse Pulse Resp BP BP Pulse Ox 07/06/21 12:10 76 18 94 07/06/21 10:17 84 20 144/66 H 96 07/06/21 09:10 36.6 C 83 16 133/81 97 Laboratory Results Abnormal lab results 07/06/21 07/06/21 Range/Units 09:13 09:13 WBC 4.47 L (4.8-10.8) K/uL Lymph # (Auto) 1.14 L (1.2-3.4) K/uL Chloride 109 H (98-107) mmol/L BUN/Creatinine Ratio 21.1 H (10-20) Diagnostic Findings Laboratory Results WBC 4.47 K/uL (4.8-10.8) L 07/06/21 09:13 RBC 5.07 M/uL (4.7-6.1) 07/06/21 09:13 Hgb 15.7 g/dL (14.0-18.0) 07/06/21 09:13 Hct 45.5 % (42-52) 07/06/21 09:13 MCV 89.7 fL (80-100) 07/06/21 09:13 MCH 31.0 pg (25-34) 07/06/21 09:13 MCHC 34.5 g/dL (32-36) 07/06/21 09:13 RDW Std Deviation 45.2 fL (36.4-46.3) 07/06/21 09:13 RDW Coeff of Elise 13.8 % (11.5-14.5) 07/06/21 09:13 Plt Count 218 K/uL (130-400) 07/06/21 09:13 MPV 10.2 fL (7.4-10.4) 07/06/21 09:13 Immature Gran % (Auto) 0.0 % 07/06/21 09:13 Neut % (Auto) 63.8 % 07/06/21 09:13 Lymph % (Auto) 25.5 % 07/06/21 09:13 [place] % (Auto) 7.6 % 07/06/21 09:13 Eos % (Auto) 2.7 % 07/06/21 09:13 Baso % (Auto) 0.4 % 07/06/21 09:13 Neut # (Auto) 2.85 K/uL (1.4-6.5) 07/06/21 09:13 Lymph # (Auto) 1.14 K/uL (1.2-3.4) L 07/06/21 09:13 [place] # (Auto) 0.34 K/uL (0.11-0.59) 07/06/21 09:13 Eos # (Auto) 0.12 K/uL (0-0.5) 07/06/21 09:13 Baso # (Auto) 0.02 K/uL (0-0.2) 07/06/21 09:13 Immature Gran # (Auto) 0.00 K/uL (0.00-0.02) 07/06/21 09:13 Sodium 140 mmol/L (136-145) 07/06/21 09:13 Potassium 3.9 mmol/L (3.5-5.1) 07/06/21 10:55 Chloride 109 mmol/L (98-107) H 07/06/21 09:13 Carbon Dioxide 22 mmol/L (21-32) 07/06/21 09:13 Anion Gap 9 (3-11) 07/06/21 09:13 BUN 16 mg/dl (6-23) 07/06/21 09:13 Creatinine 0.76 mg/dl (0.6-1.4) 07/06/21 09:13 Est Cr Clr Drug Dosing 101.7 ml/min 07/06/21 09:13 Est GFR ( Amer) 104.2 ml/min 07/06/21 09:13 Est GFR (Non-Af Amer) 89.9 ml/min 07/06/21 09:13 BUN/Creatinine Ratio 21.1 (10-20) H 07/06/21 09:13 Glucose 99 mg/dl (70-99(Fasting)) 07/06/21 09:13 Calcium 9.5 mg/dl (8.5-10.1) 07/06/21 09:13 Troponin I < 0.03 ng/ml (0-0.04) 07/06/21 09:13 TSH 2.162 uIu/ml (0.300-4.500) 07/06/21 09:13 Impressions Head CTA 07/06/21 09:21 HEAD & NECK CTA HISTORY: vertiginous symptoms with posterior headache TECHNIQUE: Multiaxial CT images of the head were performed both before and after the intravenous administration of contrast to evaluate the major cerebral vessels. Multiaxial CT images of the neck were also performed following the intravenous administration of contrast to evaluate the major cervical vessels. Maximum intensity projection images were also obtained. A dose lowering technique was utilized adhering to the principles of ALARA. COMPARISON: Sinus CT 09/03/2015. FINDINGS: Head CT: There is no mass, hematoma, midline shift, or acute infarct. Postoperative changes in mild mucosal thickening at the ethmoid air cells. The mastoid air cells are clear. The calvarium and skull base are intact. Mild atrophic changes within the brain. Head CTA: Visualized intracranial internal carotid arteries, distal vertebral arteries, and basilar artery are widely patent. There is no significant stenosis, occlusion, or aneurysm seen within the bilateral ACAs, MCAs, or gold tooler. The major dural venous sinuses are patent. Moderate calcified plaque within the bilateral carotid siphons. There is a 3 mm saccular aneurysm extending posteriorly from the ophthalmic segment of the right internal carotid artery. This is seen on axial image 90 of 256. Neck CTA: The aortic arch and proximal great vessels are widely patent. There is no significant stenosis, occlusion, or dissection identified within the bilateral common carotid, internal carotid, or vertebral arteries. Mild emphysema. Moderate to severe degenerative disc disease within the cervical spine. Mild calcified plaque within the bilateral carotid bifurcations. IMPRESSION: 1. 1. No acute intracranial abnormality. 2. No significant stenosis or occlusion within the cerebral arteries. 3. A 3 mm aneurysm extending posteriorly from the ophthalmic segment of the right internal carotid artery. 4. No significant stenosis, occlusion, or dissection identified within the carotid or vertebral arteries. ACT 112: Negative or not required by law. Electronically signed by: Sony Sanchez M.D. 07/06/2021 12:15 PM Neck CTA 07/06/21 09:21 HEAD & NECK CTA HISTORY: vertiginous symptoms with posterior headache TECHNIQUE: Multiaxial CT images of the head were performed both before and after the intravenous administration of contrast to evaluate the major cerebral vessels. Multiaxial CT images of the neck were also performed following the intravenous administration of contrast to evaluate the major cervical vessels. Maximum intensity projection images were also obtained. A dose lowering technique was utilized adhering to the principles of ALARA. COMPARISON: Sinus CT 09/03/2015. FINDINGS: Head CT: There is no mass, hematoma, midline shift, or acute infarct. Postoperative changes in mild mucosal thickening at the ethmoid air cells. The mastoid air cells are clear. The calvarium and skull base are intact. Mild atrophic changes within the brain. Head CTA: Visualized intracranial internal carotid arteries, distal vertebral arteries, and basilar artery are widely patent. There is no significant stenosis, occlusion, or aneurysm seen within the bilateral ACAs, MCAs, or gold tooler. The major dural venous sinuses are patent. Moderate calcified plaque within the bilateral carotid siphons. There is a 3 mm saccular aneurysm extending posteriorly from the ophthalmic segment of the right internal carotid artery. This is seen on axial image 90 of 256. Neck CTA: The aortic arch and proximal great vessels are widely patent. There is no significant stenosis, occlusion, or dissection identified within the bilateral common carotid, internal carotid, or vertebral arteries. Mild emphysema. Moderate to severe degenerative disc disease within the cervical spine. Mild calcified plaque within the bilateral carotid bifurcations. IMPRESSION: 1. 1. No acute intracranial abnormality. 2. No significant stenosis or occlusion within the cerebral arteries. 3. A 3 mm aneurysm extending posteriorly from the ophthalmic segment of the right internal carotid artery. 4. No significant stenosis, occlusion, or dissection identified within the carotid or vertebral arteries. ACT 112: Negative or not required by law. Electronically signed by: Sony Sanchez M.D. 07/06/2021 12:15 PM Brain MRI 07/06/21 14:01 Brain MRI WITH AND WITHOUT CONTRAST HISTORY: Dizziness. TECHNIQUE: Multiplanar multisequence MRI of the brain was performed both before and after the intravenous administration of contrast. COMPARISON STUDY: None. FINDINGS: There is no mass, hematoma, midline shift, or acute infarct. The ventricles and sulci demonstrate mild age-related involutional changes. Scattered foci of T2 hyperintensity seen within the periventricular and subcortical white matter are nonspecific but suggestive of mild microvascular ischemic changes. The major vascular flow voids at the skull base are well- maintained. Mild mucosal thickening within ethmoid air cells. Small right mastoid effusion. Mild motion artifact. No abnormal enhancement. IMPRESSION: 1. No acute intracranial abnormality. 2. Mild chronic sinus disease with a small right mastoid effusion. ECG Additional Comments: Normal sinus rhythm Normal ECG When compared with ECG of 12-SEP-2015 10:19, Premature atrial complexes are no longer Present Code Status & VTE Plan Code Status Full Code. VTE Prophylaxis Plan VTE Prophylaxis will be ordered: Yes Supervising Physician Co-Signing Physician Notes I personally saw and examined the patient. I verified all erwin points and agree with Michelle Quinn PA-C with the following exceptions and/or additions: 75 year old male with dizziness on standing. Never has this while turning his head in bed. Never had this before and not like prior motion sickness. Appeared to start after getting neck pain 10 days ago. Neck pain started without trauma or known reason. O/E HS1+2, RRR, no murmurs, Chest CTAB, Abdomen SNT, no focal neurological deficits, trapezius tenderness b/l on palpation A/P Dizziness - initially felt to be vertiginous but history I obtained more likely a perfusion problem, will get orthostatics, monitor on telemetry for arrhythmia, TTE ?vagal related to his neck pain. He is not on any dedicated anti- hypertensives but does take tamsulosin which we will continue for now Neck pain - slow progressive worsening, no etiology seen on CTA neck, given lack of radicular symptoms no need for MRI cervical spine, no known trauma. Will get CK and ESR to assess for myositis/PMR. Use heating pad. PG Care Time/CCT Total # of Minutes Spent Total Time Spent with Patient: Total time spent is greater than 50% in coordination of care (as documented) at patient's floor/unit and/or counseling patient: Coding Level of Care Code 38013 Initial Inpt Care Lvl 3 Diagnoses Vertigo R42 Diabetes E11.9 Hypothyroidism, postablative E89.0 Prostate cancer C61 PVD (peripheral vascular disease) I73.9 Hypercholesterolemia E78.00 COPD (chronic obstructive pulmonary disease) J44.9
[2021-07-06] MEDS ORDERED: ACETAMINOPHEN 325 MG TAB PO PRN (13:53)
[2021-07-06] MEDS ORDERED: POLYETHYLENE (MIRALAX) 17 GM PACK PO PRN (13:53)
[2021-07-06] MEDS ORDERED: DEXTROSE 50% 50 ML SYRINGE IV PRN (13:53)
[2021-07-06] MEDS ORDERED: GLUCOSE 10 TABS/TUBE PO PRN (13:53)
[2021-07-06] MEDS ORDERED: GLUCAGON FOR INJ 1 MG VIAL SQ PRN (13:53)
[2021-07-06] MEDS ORDERED: ONDANSETRON INJ 2 MG/ML 2 ML VIAL IV PRN (13:53)
[2021-07-06] MEDS ORDERED: CARBOHYDRATES FOR HYPOGLYCEMIA PO PRN (13:53)
[2021-07-06] MEDS ORDERED: GLUCOSE 40% GEL 15 GM TUBE PO PRN (13:53)
[2021-07-06] MEDS ORDERED: GADOBUTROL 65ML VIAL IV ONE (15:34)
[2021-07-06] MEDS: INSULIN ASPART PER UNIT SC SCH ×2 (15:57→21:27)
--- NOTE | 2021-07-06 16:12 | Magnetic Resonance Report ---
Brain MRI WITH AND WITHOUT CONTRAST HISTORY: Dizziness. TECHNIQUE: Multiplanar multisequence MRI of the brain was performed both before and after the intrave nous administration of contrast. COMPARISON STUDY: None. FINDINGS: There is no mass, hematoma, midline shift, or acute infarct. The ventricles and sulci demon strate mild age-related involutional changes. Scattered foci of T2 hyperintensity seen within the per iventricular and subcortical white matter are nonspecific but suggestive of mild microvascular ischem ic changes. The major vascular flow voids at the skull base are well-maintained. Mild mucosal thicken ing within ethmoid air cells. Small right mastoid effusion. Mild motion artifact. No abnormal enhance ment. IMPRESSION: 1. No acute intracranial abnormality. 2. Mild chronic sinus disease with a small right mastoid effusion. ACT 112: Negative or not required by law. Electronically signed by: Sony Sanchez M.D. 07/06/2021 4:11 PM
[2021-07-06] MEDS ORDERED: ALBUT/IPRATROP 3MG/0.5MG NEB 3 ML VIAL INH PRN (20:02)
[2021-07-06] MEDS ORDERED: FLUTICASONE PROPIONATE NA SPR 16 GM BTL NAE PRN (20:02)
[2021-07-06] MEDS: ASPIRIN 81 MG ECTAB PO SCH (20:55)
[2021-07-06] MEDS: CALCIUM CARBONATE 1250MG TAB PO SCH (21:17)
[2021-07-06] MEDS: ROSUVASTATIN CALCIUM 5 MG TAB PO SCH (21:17)
[2021-07-07] MEDS ORDERED: LEVOTHYROXINE SODIUM 150 MCG TABLET PO SCH (06:30)
[2021-07-07 07:48] LABS: Basophils # (auto) 0.03 K/uL (0-0.2); Basophils % (auto) 0.6 %; Eosinophils # (auto) 0.18 K/uL (0-0.5); Eosinophils % (auto) 3.7 %; Hematocrit (blood only) 42.6 % (42-52); Hemoglobin 14.4 g/dL (14.0-18.0); Immature Granulocytes # (auto) 0.01 K/uL (0.00-0.02); Immature Granulocytes % (auto) 0.2 %; Lymphocytes # (auto) 1.35 K/uL (1.2-3.4); Lymphocytes % (auto) 27.8 %; Mean Corpuscular Hemoglobin 30.6 pg (25-34); Mean Corpuscular Hgb Conc 33.8 g/dL (32-36); Mean Corpuscular Volume 90.4 fL (80-100); Mean Platelet Volume 10.5 fL (7.4-10.4); Monocytes % (auto) 8.2 %; Neutrophils # (auto) 2.89 K/uL (1.4-6.5); Neutrophils % (auto) 59.5 %; Platelet Count 213 K/uL (130-400); RDW Coefficient of Variation 13.9 % (11.5-14.5); Red Blood Count 4.71 M/uL (4.7-6.1); White Blood Count 4.86 K/uL (4.8-10.8)
[2021-07-07 08:09] LABS: BUN Creatinine Ratio 21.1 (10-20); Calcium 8.3 mg/dl (8.5-10.1); Creatinine Clr Calc Pharmacy 96.6 ml/min; Est GFR (African American) 104.2 ml/min; Est GFR (Non-African American) 89.9 ml/min; Potassium 3.8 mmol/L (3.5-5.1)
[2021-07-07] MEDS: TAMSULOSIN HCL 0.4 MG CAP PO SCH (08:13)
[2021-07-07] MEDS: CALCIUM CARBONATE 1250MG TAB PO SCH ×2 (08:13→21:05)
[2021-07-07] MEDS: ASPIRIN 81 MG ECTAB PO SCH (08:13)
[2021-07-07] MEDS: ENOXAPARIN INJ 40 MG/0.4 ML SYR SQ SCH (08:14)
[2021-07-07] MEDS: INSULIN ASPART PER UNIT SC SCH ×4 (08:14→22:28)
[2021-07-07] MEDS: MECLIZINE HCL 25 MG TAB PO PRN ×2 (09:32→17:28)
--- NOTE | 2021-07-07 12:28 | XCELERA ---
[id number]
--- NOTE | 2021-07-07 14:34 | Hospitalist Progress Note ---
Date of Service July 07, 2021 Assessment & Plan (1) Vertigo: Plan: -Diagnosis includes vertigo of peripheral vs central origin -CTA head+neck showed no intracranial abnormality or significant stenosis of cerebral/carotid/vertebral arteries. A 3 mm ophthalmic artery aneurysm was noted, however it is unlikely to be related to presentation. -MRI-brain w and w/o contrast showed no acute intracranial abnormality, no CVA. Mild chronic sinus disease with a small right mastoid effusion was noted. -headache and neck pain now resolved, still some residual dizziness but overall improved with meclizine and time Orthostatics neg tele negative ECHO normal -Will continue meclizine 25 mg TID PRN. -asked PT to come by and try Morgan maneuvers (2) Hypothyroidism, postablative: Plan: -Thyroidectomy in 2010 2/2 thyroid cancer. -TSH 2.162 here -Received levothyroxine 175 mcg in ED. Patient takes alternating daily doses of 150 and 175 mcg. (3) Diabetes: Plan: -On metformin at home, last A1c in March 2021 was 5.7 -Accucheks achs with sliding scale insulin if needed. (4) Prostate cancer: Plan: -Patient states he is in remission, has close follow up with urology and oncology. -Continue flomax 0.4 mg daily. (5) PVD (peripheral vascular disease): Plan: -Had a toe amputation in 2009 and LLE bypass in 2012. -On ASA 81 daily, will continue this. (6) Hypercholesterolemia: Plan: -Continue rosuvastatin 5 mg daily. (7) COPD (chronic obstructive pulmonary disease): Plan: -Patient states it is stable, takes his home inhalers on PRN basis. Will order DuoNeb PRN. Plan: -Inpatient med/surg on tele, continued stay due to ongoing dizziness, not safe to return home yet, await PT eval and treatment -SCDs and Lovenox for DVT prophylaxis. -Full Code. Admission and Anticipated Discharge Date Admission Date: July 06, 2021 Anticipated date of discharge: 07/08/21 Subjective Definitely feeling much better today, but still some mild dizziness with standing. No further headache or neck pain. No nausea. No CPor SOB. Had some cold symptoms last week, no hearing loss, no tinnitus, no ear pain Tele with NSR and SB 50-60s Review of Systems Review of Systems: All systems reviewed & are unremarkable except as noted in HPI & below Physical Exam Constitutional: WD/WN, vitals as above Eyes: PERRL, conjunctivae normal, anicteric sclerae EOM intact bilaterally; no anisocoria and no nystagmus ENMT: external ear and nose normal, oropharynx normal Neck: trachea midline, no thyromegaly Respiratory: normal respiratory effort, lungs clear to auscultation Cardiovascular: RRR, no murmur, no edema Chest (Breasts): Chest: normal inspection of chest Gastrointestinal (Abdomen): normal bowel sounds, soft, nontender, no hepatosplenomegaly Musculoskeletal: Extremities: no cyanosis and no clubbing Skin: no rashes, warm and dry Neurologic: PERRL, EOMI, accommodation nl, no face palsy, no dysarthria CN's II-XI intact bilaterally, moves all extremities and awake; no focal motor deficits and not confused Psychiatric: A+Ox3, euthymic affect Lymphatic: no lymphedema Results & Data Results & Data ([facility]) Vital Signs (Past 12 Hours) Vital Signs Temp Pulse Resp BP BP Pulse Ox 07/07/21 11:23 36.5 C 63 20 136/67 94 07/07/21 07:25 36.7 C 73 20 122/73 97 07/07/21 03:29 36.6 C 65 17 122/64 96 Laboratory Results 07/07/21 07/07/21 07/07/21 Range/Units 11:38 07:40 07:02 WBC (4.8-10.8) K/uL RBC (4.7-6.1) M/uL Hgb (14.0-18.0) g/dL Hct (42-52) % MCV (80-100) fL MCH (25-34) pg MCHC (32-36) g/dL RDW Std Deviation (36.4-46.3) fL RDW Coeff of Elise (11.5-14.5) % Plt Count (130-400) K/uL MPV (7.4-10.4) fL Immature Gran % (Auto) % Neut % (Auto) % Lymph % (Auto) % Stearns % (Auto) % Eos % (Auto) % Baso % (Auto) % Neut # (Auto) (1.4-6.5) K/uL Lymph # (Auto) (1.2-3.4) K/uL Stearns # (Auto) (0.11-0.59) K/uL Eos # (Auto) (0-0.5) K/uL Baso # (Auto) (0-0.2) K/uL Immature Gran # (Auto) (0.00-0.02) K/uL ESR (0-20) mm/hr Sodium 140 (136-145) mmol/L Potassium 3.8 (3.5-5.1) mmol/L Chloride 110 H (98-107) mmol/L Carbon Dioxide 25 (21-32) mmol/L Anion Gap 5 (3-11) BUN 16 (6-23) mg/dl Creatinine 0.76 (0.6-1.4) mg/dl Est Cr Clr Drug Dosing 96.6 ml/min Est GFR ( Amer) 104.2 ml/min Est GFR (Non-Af Amer) 89.9 ml/min BUN/Creatinine Ratio 21.1 H (10-20) Glucose 95 (70-99(Fasting)) mg/dl POC Glucose 85 111 H (70-99) mg/dl Calcium 8.3 L (8.5-10.1) mg/dl Total Creatine Kinase (30-223) U/L SARS-CoV-2, RNA, NAAT (NEGATIVE) 07/07/21 07/06/21 07/06/21 Range/Units 07:02 Unknown 20:54 WBC 4.86 (4.8-10.8) K/uL RBC 4.71 (4.7-6.1) M/uL Hgb 14.4 (14.0-18.0) g/dL Hct 42.6 (42-52) % MCV 90.4 (80-100) fL MCH 30.6 (25-34) pg MCHC 33.8 (32-36) g/dL RDW Std Deviation 46.0 (36.4-46.3) fL RDW Coeff of Elise 13.9 (11.5-14.5) % Plt Count 213 (130-400) K/uL MPV 10.5 H (7.4-10.4) fL Immature Gran % (Auto) 0.2 % Neut % (Auto) 59.5 % Lymph % (Auto) 27.8 % Stearns % (Auto) 8.2 % Eos % (Auto) 3.7 % Baso % (Auto) 0.6 % Neut # (Auto) 2.89 (1.4-6.5) K/uL Lymph # (Auto) 1.35 (1.2-3.4) K/uL Stearns # (Auto) 0.40 (0.11-0.59) K/uL Eos # (Auto) 0.18 (0-0.5) K/uL Baso # (Auto) 0.03 (0-0.2) K/uL Immature Gran # (Auto) 0.01 (0.00-0.02) K/uL ESR (0-20) mm/hr Sodium (136-145) mmol/L Potassium (3.5-5.1) mmol/L Chloride (98-107) mmol/L Carbon Dioxide (21-32) mmol/L Anion Gap (3-11) BUN (6-23) mg/dl Creatinine (0.6-1.4) mg/dl Est Cr Clr Drug Dosing ml/min Est GFR ( Amer) ml/min Est GFR (Non-Af Amer) ml/min BUN/Creatinine Ratio (10-20) Glucose (70-99(Fasting)) mg/dl POC Glucose 95 (70-99) mg/dl Calcium (8.5-10.1) mg/dl Total Creatine Kinase (30-223) U/L SARS-CoV-2, RNA, NAAT NEGATIVE (NEGATIVE) 07/06/21 07/06/21 07/06/21 Range/Units 15:55 10:55 09:13 WBC (4.8-10.8) K/uL RBC (4.7-6.1) M/uL Hgb (14.0-18.0) g/dL Hct (42-52) % MCV (80-100) fL MCH (25-34) pg MCHC (32-36) g/dL RDW Std Deviation (36.4-46.3) fL RDW Coeff of Elise (11.5-14.5) % Plt Count (130-400) K/uL MPV (7.4-10.4) fL Immature Gran % (Auto) % Neut % (Auto) % Lymph % (Auto) % Stearns % (Auto) % Eos % (Auto) % Baso % (Auto) % Neut # (Auto) (1.4-6.5) K/uL Lymph # (Auto) (1.2-3.4) K/uL Stearns # (Auto) (0.11-0.59) K/uL Eos # (Auto) (0-0.5) K/uL Baso # (Auto) (0-0.2) K/uL Immature Gran # (Auto) (0.00-0.02) K/uL ESR 13 (0-20) mm/hr Sodium (136-145) mmol/L Potassium (3.5-5.1) mmol/L Chloride (98-107) mmol/L Carbon Dioxide (21-32) mmol/L Anion Gap (3-11) BUN (6-23) mg/dl Creatinine (0.6-1.4) mg/dl Est Cr Clr Drug Dosing ml/min Est GFR ( Amer) ml/min Est GFR (Non-Af Amer) ml/min BUN/Creatinine Ratio (10-20) Glucose (70-99(Fasting)) mg/dl POC Glucose 92 (70-99) mg/dl Calcium (8.5-10.1) mg/dl Total Creatine Kinase 43 (30-223) U/L SARS-CoV-2, RNA, NAAT (NEGATIVE) Diagnostic Findings Brain MRI 07/06/21 14:01 Brain MRI WITH AND WITHOUT CONTRAST HISTORY: Dizziness. TECHNIQUE: Multiplanar multisequence MRI of the brain was performed both before and after the intravenous administration of contrast. COMPARISON STUDY: None. FINDINGS: There is no mass, hematoma, midline shift, or acute infarct. The ventricles and sulci demonstrate mild age-related involutional changes. Scattered foci of T2 hyperintensity seen within the periventricular and subcortical white matter are nonspecific but suggestive of mild microvascular ischemic changes. The major vascular flow voids at the skull base are well- maintained. Mild mucosal thickening within ethmoid air cells. Small right mastoid effusion. Mild motion artifact. No abnormal enhancement. IMPRESSION: 1. No acute intracranial abnormality. 2. Mild chronic sinus disease with a small right mastoid effusion. ACT 112: Negative or not required by law. Electronically signed by: Sony Sanchez M.D. 07/06/2021 4:11 PM PG Care Time/CCT Total # of Minutes Spent Total Time Spent with Patient: Total time spent is greater than 50% in coordination of care (as documented) at patient's floor/unit and/or counseling patient: Coding Level of Care Code 46083 Subseq Hosp Care Lvl 2 Diagnoses Vertigo R42 Hypothyroidism, postablative E89.0 Diabetes E11.9 Prostate cancer C61 PVD (peripheral vascular disease) I73.9 Hypercholesterolemia E78.00 COPD (chronic obstructive pulmonary disease) J44.9
[2021-07-07 17:56] LABS: Lyme Ab IgG w/WB Rflx Negative (Negative); Lyme Ab IgM w/WB Rflx Negative (Negative)
[2021-07-07] MEDS: DOCUSATE SODIUM 100 MG CAP PO SCH (21:04)
[2021-07-07] MEDS: ROSUVASTATIN CALCIUM 5 MG TAB PO SCH (21:05)
[2021-07-08 03:05] VITALS: BP 116/66; TEMP 97.9; O2SAT 95
[2021-07-08] MEDS ORDERED: LEVOTHYROXINE SODIUM 175 MCG TABLET PO SCH ×2 (06:30→14:00)
[2021-07-08] MEDS: ASPIRIN 81 MG ECTAB PO SCH (08:56)
[2021-07-08] MEDS: DOCUSATE SODIUM 100 MG CAP PO SCH (08:56)
[2021-07-08] MEDS: ENOXAPARIN INJ 40 MG/0.4 ML SYR SQ SCH (08:56)
[2021-07-08] MEDS: TAMSULOSIN HCL 0.4 MG CAP PO SCH (08:56)
[2021-07-08] MEDS: CALCIUM CARBONATE 1250MG TAB PO SCH (08:56)
[2021-07-08] MEDS: INSULIN ASPART PER UNIT SC SCH (09:02)
--- NOTE | 2021-07-08 09:17 | Neurology Consultation ---
Date of Consultation July 08, 2021 Assessment & Plan (1) Positional vertigo: (2) Headache: (3) Neck pain: (4) Idiopathic polyneuropathy: (5) Carotid aneurysm, right: this patient has a positional vertigo, consistent with BPPV of the left ear. Currently, he has no dizziness. He has had headaches and posterior neck pain probably consistent with a mixed muscle tension type headache. These have resolved also. MRI of the brain shows some very mild, nonspecific old white matter small vessel ischemic changes. He is on 81 milligram aspirin daily. There is no evidence of a stroke. His symptoms were not consistent with TIA either. Although the patient had some blurry vision, he did not have any double vision or loss of vision. Neurologic exam currently is nonfocal with no meningeal or encephalopathy signs. He does have reflex and sensory changes consistent with a polyneuropathy, likely from diabetes. The patient has an incidental, 3 millimeter, distal right internal carotid artery aneurysm. This likely has nothing to do with his current symptoms. Recommendations: 1. Increase activity as able. 2. use meclizine as needed. 3. there is little to do for the incidental aneurysm, but now that we know it is there, we probably should repeat a CT angiography in 6 months. 4. I see no need for additional neurologic testing. 5. Continue 81 milligram aspirin daily. 6. follow up with 1 of our neurology PAs in 2-3 weeks Overall, I spent a total of 100 minutes with this case including review of records, review of MRI films, direct evaluation the patient at bedside, and discussion of the case with the patient and RN at bedside and Dr. Gutierrez, including differential diagnosis and treatment options. History of Present Illness Reason for Consultation: the patient is a 75-year-old, who I was asked to see the request of Dr. Gutierrez, for neurologic consultation regarding vertigo and other issues. Requesting Physician: Dr. Gutierrez Attending Physician: Laura Gutierrez MD History of Present Illness Patient has a history of diabetes on metformin, COPD (with a history of heavy cigarette usage ), prostate cancer, hypothyroidism, dyslipidemia, peripheral vascular disease. In 1991 in an episode where he passed out while at work. I do not have any records from this time, but apparently he was fine and is never happened again. A family doctor told him that they thought he had a "mini- stroke". The patient has not been ill and has no history of hearing loss, tinnitus, or ear pain. About 1 week ago he noted episodes intermittently where he would stand up and feel "woozy". His balance was a little off but he did fall. He did not have spinning and he did a lightheaded sensation. When he sat he would feel better. At the same time, he noted headache which was bioccipital turning into bifrontal of a steady pain. There was no nausea, vomiting, or phonophobia. There was some photophobia and Advil did help. had posterior neck pain. This went on For several days of an intermittent and stable fashion. He noted that he would always lean to the left when he had an episode. On July 05, he actually fell twice because the balance was worse with wooziness he stood. Woke up morning July 06 with a true vertigo. He had some blurry vision a little bit in the right eye but no double vision. He has a known cataract in the right eye. He still had the headache and neck pain as before. He was still leaning to the left with the vertigo as well. When he sat still it would qamar. Would get worse when he sat tries to stand. He arrived to the emergency room July 06 at 0910 with a temperature of 36.6, pulse 83 and regular, respiratory rate 16, blood pressure 133/81, and O2 saturation 97 percent. He had no focal findings on exam but he did get some dizziness with set up or head movement. Fluids and meclizine did not help much in the ER. CBC and Chem profile were largely unremarkable. Sed rate was 13, TSH 2.1, Lyme antibody titer was negative and CK was 43. CT angiography of the head and neck was unremarkable any significant vascular stenosis although he had a incidental 3 millimeter aneurysm noted in the ophthalmic portion the right internal carotid artery. MRI of the brain showed some mild old small vessel ischemia of a nonspecific nature with no acute findings or posterior fossa/ inner ear issues. I reviewed all of these films. Physical therapy did an Morgan maneuver referable to the left ear. This morning the patient has no neck pain and no headache. His dizziness is essentially resolved. He can sit up in bed and not dizziness at all. Allergies Allergy/AdvReac Type Severity Reaction Status Date / Time No Known Allergies Allergy Verified 07/06/21 10:07 Home Medications Medication Instructions Recorded Confirmed Type multivitamin (Daily Multi-Vitamin) 1 tab PO DAILY 05/10/19 07/06/21 History omega-3 fatty acids 1,000 mg 1,000 mg PO DAILY 05/10/19 07/06/21 History capsule calcium carbonate 600 mg calcium 600 mg PO BID 02/26/20 07/06/21 History (1,500 mg) tablet (Calcium) cinnamon bark 500 mg capsule 1,000 mg PO DAILY cap 02/26/20 07/06/21 History (Cinnamon) metformin 500 mg tablet 1,000 mg PO DAILY tab 02/26/20 07/06/21 History rosuvastatin 5 mg tablet 5 mg PO HS tab 02/26/20 07/06/21 History fluticasone propionate 50 1 spray INTRANASAL BID PRN 04/07/20 07/06/21 History mcg/actuation nasal spray,suspension tamsulosin 0.4 mg capsule 0.4 mg PO DAILY cap 03/13/21 07/06/21 History levothyroxine 150 mcg tablet See Rx Instructions PO .COMPLEX 06/03/21 07/06/21 Rx #45 tab levothyroxine 175 mcg tablet See Rx Instructions PO .COMPLEX 06/03/21 07/06/21 Rx #45 tab aspirin 81 mg tablet,delayed 81 mg PO DAILY 07/06/21 07/06/21 History release ipratropium 0.5 mg-albuterol 3 mg 3 ml INHALATION Q6H PRN 07/06/21 07/06/21 History (2.5 mg base)/3 mL nebulization soln Patient History Medical History Diabetes Elevated PSA Hx of thyroid cancer Hypercholesterolemia Hypothyroidism, postablative Prostate cancer (02/07/20) PVD (peripheral vascular disease) (05/08/13) Surgical History H/O amputation of lesser toe (~2009) H/O extremity bypass graft 2010 (Left Leg - [place]), 2012 (Use graft from right into left - Dr. Ely) H/O total knee replacement (~2014) Right History of thyroidectomy (~2010) Left Family History Father , Passed age 71 of metastatic prostate cancer Diabetes Mother , Passed age 88 of natural causes (alzheimers) No problems noted. Brother Prostate cancer, Onset Age: 63 Hx Prostatectomy & Radiation Brother No problems noted. Brother No problems noted. Brother No problems noted. Brother No problems noted. Sister No problems noted. Sister No problems noted. Daughter No problems noted. Son No problems noted. Son No problems noted. 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 Beliefs That Will Affect Care: None marital status: / Current Living Situation: Alone Current Living Situation Comment: Lives at home alone current occupational status: retired current occupation: Retired [employer] age 56 Other Information That Helps Us Care for You: No Feels Safe at Home: Yes Safety Concerns: Feels Safe At This Time caffeine: Yes (2 cups of coffee/day ) during the past year weight has: remained stable Dental Care, Regularly: No Assistive Devices: Glasses Assistive Devices Comment: Glasses and upper and lower dentures w/ pt Review of Systems Constitutional: no fever, no fatigue and no weakness Eyes: no diplopia, no eye pain and no worsening vision Ear, Nose, Mouth, Throat: no ear pain, no tinnitus, no hearing loss, no dizziness, no snoring, no hoarseness and no dysphagia Respiratory: no cough and no dyspnea Cardiovascular: no chest pain, no palpitations and no lightheadedness Gastrointestinal: no abdominal pain, no nausea and no vomiting Musculoskeletal: no back pain, no neck pain, no radicular pain, no joint pain and no myalgia Integumentary: no rash and no lesions Neurologic: no gait abnormality, no localized weakness, no generalized weakness, no tingling, no numbness, no tremor(s), no abnormal movements, no headache(s), no abnormal speech, no confusion and no memory loss Psychiatric: no depression, no irritability, no anxiety, no difficulty concentrating, no confusion and no hallucinations Endocrine: no fatigue and no flushing Hematologic / Lymphatic: no easy bleeding and no easy bruising Allergy / Immunological: no urticaria and no problem reported Exam (Neuro) Physical Exam: The patient is right-handed. The patient is awake, alert, and attentive. Speech is normal without any aphasia or dysarthria. The patient can name objects, repeat phrases, and has normal spontaneous speech. Mentation and thought processes are intact, with orientation to person, place and time, and normal fund of knowledge. Attention and concentration are normal. Mood and affect are normal and appropriate. Ge neral appearance and grooming are normal. Short and long-term memory are intact. Pupils are 3 mm bilaterally and reactive to light. Extraocular eye muscles are intact without nystagmus. Visual acuity and visual stallworth seem normal grossly to confrontation. with sitting up the patient had no nystagmus or dizziness. There are no deficits to sensation in the face in all 3 distributions of the fifth cranial nerve bilaterally. Corneal reflexes are positive bilaterally. Facial strength and symmetry was normal bilaterally. Hearing seems normal bilaterally. Palate moves well without asymmetry. There is normal sternocleidomastoid and trapezius (shoulder shrug) strength bilaterally. Tongue is midline with good strength bilaterally. Neck has a full range of motion without discomfort. There are no cervical bruits bilaterally. There are no cranial or ocular bruits. Heart is without murmur. There is a regular rhythm and rate. Cervical, thoracic, and lumbar spine are nontender to palpation. Gait was not tested but stance sitting up was Normal. With outstretched arms there is no drift. There are no resting, postural, or action tremors. There is no ataxia with finger to nose testing. There is good facility in the hands. No other abnormal involuntary movements are noted. Motor strength is 5/5 diffusely in the arms bilaterally including deltoids, biceps, triceps, brachioradialis, wrist flexors and extensors, 2nd grade teacher, and intrinsic hand muscles. Motor strength is 5/5 diffusely in the legs bilaterally including hip flexors, quadriceps, hamstrings, gastrocnemius, tibialis anterior, tibialis posterior, and Peroneii muscles. Toe extensors are normal and there is good bulk in the extensor digitorum brevis muscles bilaterally. The limbs have good tone without rigidity or spasticity. There is no atrophy noted in the muscles. Muscle bulk is normal, there is no tenderness to palpation, no myotonia to percussion, and no fasciculations seen. Sensory examination reveals a significant stocking distribution pinprick sense loss to the knees bilaterally Reflexes are 1/4 in the biceps, triceps, and brachioradialis tendons bilaterally. quadriceps and Achilles tendon reflexes are absent bilaterally. There is no clonus bilaterally. Toes are neutral to downgoing with plantar stimulation bilaterally. There is no peripheral edema noted in the limbs. Results & Data ([facility]) Vital Signs (Past 12 Hours) Vital Signs Temp Pulse Pulse Resp BP Pulse Ox 07/08/21 08:23 49 L 07/08/21 04:59 55 L 07/08/21 03:04 36.6 C 64 18 116/66 95 07/07/21 23:37 36.5 C 57 L 18 111/55 L 93 PG Care Time/CCT Total # of Minutes Spent Total Time Spent with Patient: Total time spent is greater than 50% in coordination of care (as documented) at patient's floor/unit and/or counseling patient: Coding Level of Care Code 40121 Initial Inpt Care Lvl 3 Diagnoses Positional vertigo Headache R51.9 Neck pain M54.2 Idiopathic polyneuropathy G60.9 Carotid aneurysm, right I72.0 Time Spent (min) 100 Comment Add modifiers as able
--- NOTE | 2021-07-08 10:39 | Discharge Summary ---
Date of Service July 08, 2021 Admission HPI Per Admitting Provider Patient is a 75 y/o male with a PMH of prostate CA, thyroid CA s/p thyroidectomy, hypothyroidism, diabetes, and peripheral vascular disease who presents with headache and dizziness for the past 5 days. This started Tuesday when he tried to get up from his recliner but felt dizzy and had to wait several minutes before walking. He states that the room seemed as if it was spinning, describes it as "the feeling you get when you stand up too fast". After time, the dizziness stopped and he was able to continue with ambulation. This occurred once per day over the next 3 days until yesterday, 07/05, when he noted the ep isodes became more frequent and severe, stating that nearly every time he stood up he was feeling so dizzy that he was concerned he was too off balance to ambulate. He did eventually get up last night to head to bed and nearly fell, however caught his balance on a nearby chair. This morning, he tried to rise from bed but immediately felt dizzy and fell back on to the bed, which prompted him to call his PCP who advised him to present to the ED for further evaluation. Patient notes with these episodes, he has had intermittent ringing in his ears and a headache caused by neck pain that occurs with head movements. Lying down and minimizing head movement provides some alleviation of headache and dizziness. Denies fever/chills, myalgias, confusion, syncope, weakness, numbness, tingling, loss of sensation, radiation of pain down arms, speech difficulties, vision changes, chest pain, palpitations, shortness of breath, abdominal pain, nausea, vomiting, constipation, diarrhea, urinary symptoms. Vital signs stable, BP slightly elevated at 144/66, otherwise within normal limits. WBC 4.47, otherwise BMP, troponin, TSH all within normal limits. Glucose 99. EKG showed NSR, CTA head and neck showed no acute intracranial abnormality or any significant stenosis within cerebral/carotid/vertebral arteries. 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 Hospitalist service was consulted for further evaluation and admission. Principal Diagnosis Vertigo, MSK neck pain, Cervicogenic headache/Tension headache Discharge Exam Constitutional WD/WN, vitals as above Eyes + anicteric sclerae ENMT external ear and nose normal, oropharynx normal Neck trachea midline, no thyromegaly Respiratory normal respiratory effort, lungs clear to auscultation Cardiovascular RRR, no murmur, no edema Chest (Breasts) Chest: normal inspection of chest Gastrointestinal (Abdomen) normal bowel sounds, soft, nontender, no hepatosplenomegaly Musculoskeletal Extremities: no cyanosis and no clubbing Skin no rashes, warm and dry Neurologic moves all extremities and awake; no focal motor deficits and not confused Psychiatric A+Ox3, euthymic affect Lymphatic no lymphedema Discharge Data Allergies Allergy/AdvReac Type Severity Reaction Status Date / Time No Known Allergies Allergy Verified 07/06/21 10:07 Consultations 07/06/21 12:34 ED Decision to Admit Stat 07/07/21 15:39 Consult Neurology Routine Ordered Studies 07/06/21 09:21 CT angio head wo/w Stat CT angio neck with con Stat 07/06/21 14:01 MR brain wo/w con Stat Hospital Course (1) Vertigo: -Secondary to BPPV -CTA head+neck showed no intracranial abnormality or significant stenosis of cerebral/carotid/vertebral arteries. A right 3 mm ophthalmic artery aneurysm was noted, however it is unlikely to be related to presentation. -MRI-brain w and w/o contrast showed no acute intracranial abnormality, no CVA. Mild chronic sinus disease with a small right mastoid effusion was noted. -headache and neck pain now resolved, dizziness resolved with meclizine and Morgan's Suspect MSK neck pain and tension type AGUILAR as per Neuro and I agree No evidence of meningitis or infection Lyme negative Orthostatics neg initially, borderline positive on repeat but was completely asymptomatic tele negative ECHO normal -Will continue meclizine 25 mg TID PRN. 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 -Continue flomax 0.4 mg daily. (6) Diabetes: -On metformin at home, last A1c in March 2021 was 5.7 sliding scale insulin if needed was used here can restart home metformin this evening as has been > 48 hrs since IV contrast (7) PVD (peripheral vascular disease): -Had a toe amputation in 2009 and LLE bypass in 2012. -On ASA 81 daily, will continue this. (8) Hypothyroidism, postablative: -Thyroidectomy in 2010 2/2 thyroid cancer. -TSH 2.162 here -Received levothyroxine 175 mcg in ED. Patient takes alternating daily doses of 150 and 175 mcg. (9) Hypercholesterolemia: -Continue rosuvastatin 5 mg daily. (10) COPD (chronic obstructive pulmonary disease): -Patient states it is stable, takes his home inhalers on PRN basis. Will order DuoNeb PRN. DVT proph-SCDs and Lovenox for DVT prophylaxis. -Full Code. Dispo-stable for dc to home Total Time Total Time Spent Total Time Spent (In Minutes): 35 min Total Time Includes: Examination of the Patient, Discharge Planning, Medication Reconciliation and Communication With Other Providers (Neurology) Discharge Plan Discharge Items Patient Disposition: Home - Self-Care Reason For Visit: DIZZINESS, HEADACHE Discharge Diagnosis: Vertigo, musculoskeletal neck pain,cervicogenic headache Condition on Discharge: Good Activity: As commented below Lifting: Gradually increase as tolerated Bathing: No limitations Exercise/Sports: Gradually increase as tolerated Driving/Machine Use: No driving until dizziness resolved for at least 3 days Weightbearing: Full weightbearing Non-emergency contact: Primary Care Provider and Neurologist Call non-emergency contact if: you have any medication questions, your symptoms worsen, your pain is not controlled, your pain is worsening and you have a fever Follow-up/Referrals: Demetrius Holloway MD [Primary Care Provider] - (Follow up within 1-2 weeks.) Diet: Carb Consistent or DM2 and Heart Healthy Addtl Attending Provider Instructions: You were admitted with dizziness, headache, and neck pain. This was all significantly improved after treatment with physical therapy, Tylenol, and meclizine for vertigo. You had a brain MRI and a workup for stroke which was all negative. You do not have meningitis. You tested negative for Lyme disease as well. You have no problems with your heart. Please continue to take the meclizine as needed for dizziness. You can apply the Aspercreme to your neck for pain and take Tylenol as needed. Please follow up with the Neurologist within 2-3 weeks. Follow up with Dr. Holloway within 1-2 weeks. It was a pleasure taking care of you! -Dr. Laura Gutierrez Pending Studies at Discharge: No Stand-Alone Forms: My [facility], Smoking Cessation Medications and DC Order Prescriptions: New acetaminophen 325 mg Tablet 650 mg PO Q4H PRN (Reason: pain) Qty: 30 RF: 0 meclizine 25 mg Tablet 25 mg PO TID PRN (Reason: dizziness) Qty: 10 RF: 0 Continued tamsulosin 0.4 mg capsule 0.4 mg PO DAILY RF: 0 metformin 500 mg tablet 1,000 mg PO DAILY RF: 0 cinnamon bark [Cinnamon] 500 mg capsule 1,000 mg PO DAILY RF: 0 calcium carbonate [Calcium 600] 600 mg calcium (1,500 mg) tablet 600 mg PO BID RF: 0 fluticasone propionate 50 mcg/actuation spray,suspension 1 spray intranasal BID PRN (Reason: Shortness Of Breath) RF: 0 levothyroxine 175 mcg tablet See Rx Instructions PO .COMPLEX Qty: 45 RF: 1 levothyroxine 150 mcg tablet See Rx Instructions PO .COMPLEX Qty: 45 RF: 1 multivitamin [Daily Multi-Vitamin] tablet 1 tab PO DAILY RF: 0 omega-3 fatty acids 1,000 mg capsule 1,000 mg PO DAILY RF: 0 rosuvastatin 5 mg tablet 5 mg PO HS RF: 0 ipratropium-albuterol [DuoNeb] 0.5 mg-3 mg(2.5 mg base)/3 mL Solution For Nebulization 3 ml INHALATION Q6H PRN (Reason: Shortness Of Breath) RF: 0 aspirin 81 mg Tablet,Delayed Release (Dr/Ec) 81 mg PO DAILY RF: 0 Discharge Orders: Discharge Order (Routine); Ordered 07/08/21 Ordered By: Laura Bhardwaj/Other Patient Handouts: Managing Type 2 Diabetes Admission Data Admit Date/Time: 07/06/21 13:53 Attending Provider: Laura Gutierrez Admit Provider: Carlos Amin Primary Care Provider: Demetrius Holloway Other Providers: Carlos Amin ; Bandar,Manfred Coding Level of Care Code D/C DAY MANAGEMENT >30 MINS Diagnoses Vertigo R42 Hypothyroidism, postablative E89.0 Diabetes E11.9 Prostate cancer C61 PVD (peripheral vascular disease) I73.9 Hypercholesterolemia E78.00 COPD (chronic obstructive pulmonary disease) J44.9 Carotid aneurysm, right I72.0 Neck pain M54.2 Headache R51.9
[2021-07-08 10:56] VITALS: PULSE 64
== END 2021-07-08 11:47 | disposition home or self-care (01) | DRG 149 ==
LOC: ED 09:02 → SUATTDRO 13:53 → 2N 13:53

== ENCOUNTER 2024-07-17 01:15 | Observation (INO) ==
[2024-07-17] MEDS: ACETAMINOPHEN 1,000 MG/100 ML VIAL IV STA (01:47)
[2024-07-17] MEDS: SODIUM CHLORIDE 0.9% 1,000 ML IV SCH (01:47)
[2024-07-17 01:52] LABS: Hematocrit (blood only) 40.6 % (42.0-52.0); Hemoglobin 13.9 g/dl (14.0-18.0); Mean Corpuscular Hgb Conc 34.2 g/dL (32.0-36.0); Mean Corpuscular Volume 87.5 fL (80.0-100.0); Mean Platelet Volume 10.6 fL (9.4-12.4); Platelet Count 206 K/uL (130-400); RDW Coefficient of Variation 13.8 % (11.5-14.5); RDW Standard Deviation 44.1 fL (36.4-46.3); Red Blood Count 4.64 M/uL (4.70-6.10); White Blood Count 13.87 K/ul (4.8-10.8)
[2024-07-17 02:03] LABS: Albumin Level 4.2 gm/dl (3.4-5.0); BUN Creatinine Ratio 34.4 (10-20); Bilirubin Direct 0.1 mg/dl (0-0.2); Bilirubin,Total 0.5 mg/dl (0.2-1.0); Calcium 9.2 mg/dl (8.6-10.3); Magnesium 1.8 mg/dl (1.7-2.4); Potassium 4.4 mmol/L (3.5-5.1); Total Protein 6.7 gm/dl (6.0-8.3)
[2024-07-17 02:09] LABS: Troponin I High Sensitivity 4.5 pg/ml (0-20)
[2024-07-17 02:12] LABS: Partial Thromboplastin Ratio 0.9; Partial Thromboplastin Time 25 Seconds (21-31); Prothrombin Time 10.7 Seconds (9.0-12.0)
[2024-07-17 02:15] LABS: Basophils # (auto) 0.02 K/uL (0.00-0.20); Basophils % (auto) 0.1 %; Eosinophils # (auto) 0.03 K/uL (0.00-0.50); Eosinophils % (auto) 0.2 %; Immature Granulocytes # (auto) 0.08 K/uL (0.01-0.20); Immature Granulocytes % (auto) 0.6 %; Lymphocytes # (auto) 0.46 K/uL (1.20-3.40); Lymphocytes % (auto) 3.3 %; Monocytes % (auto) 4.3 %; Neutrophils # (auto) 12.68 K/uL (1.40-6.50); Neutrophils % (auto) 91.5 %; RBC Morphology Unremarkable
[2024-07-17 02:32] LABS: Adenovirus PCR Not Detected (NotDetected); Bordetella parapertussis PCR Not Detected (NotDetected); Bordetella pertussis PCR Not Detected (NotDetected); Chlamydia pneumoniae PCR Not Detected (NotDetected); Coronavirus 229E PCR Not Detected (NotDetected); Coronavirus CoV-2 (COVID19)PCR Not Detected (NotDetected); Coronavirus HKU1 PCR Not Detected (NotDetected); Coronavirus NL63 PCR Not Detected (NotDetected); Coronavirus OC43PCR Not Detected (NotDetected); Human Metapneumovirus PCR Not Detected (NotDetected); Influenza A PCR Not Detected (NotDetected); Influenza B PCR Not Detected (NotDetected); Mycoplasma pneumoniae PCR Not Detected (NotDetected); Parainfluenza Virus 1 PCR Not Detected (NotDetected); Parainfluenza Virus 2 PCR Not Detected (NotDetected); Parainfluenza Virus 3 PCR Not Detected (NotDetected); Parainfluenza Virus 4 PCR Not Detected (NotDetected); Respiratory Syncytial VirusPCR Not Detected (NotDetected); Rhinovirus/Enterovirus PCR Not Detected (NotDetected)
--- NOTE | 2024-07-17 02:33 | XRay Report ---
EXAM: XR chest 1V portable CLINICAL HISTORY: Sepsis. TECHNIQUE: An X-ray image of the chest is obtained in AP projection. COMPARISON: No prior studies are available for comparison. FINDINGS: Pulmonary Parenchyma: Bilateral perihilar and bibasilar prominent bronchovascular markings with interstitial thickening. No pulmonary nodules are identified. No evidence of pleural effusion or pleural thickening. Heart and Mediastinum: Heart size and shape are normal. Prominent aortic knob with curvilinear calcifications. No mediastinal widening or masses. No hilar or mediastinal lymphadenopathy. Bony Thorax: Bony thorax appears intact without fractures or deformities. 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 Soft Tissues: Soft tissues overlying the chest wall are unremarkable. IMPRESSION: Bilateral perihilar and bibasilar prominent bronchovascular markings with interstitial thickening. Appearance may be attributed to chronic bronchitis. Electronically signed by Angel Valiente 07-17-2024 02:33 AM
[2024-07-17] MEDS: CEFEPIME 2000MG 2,000 MG/20 ML SYR IV STA (02:34)
--- OUTSIDE RECORDS SUMMARY | 2024-07-17 02:43 | External Medical Summary | Summary of Care ---
Author Name Unknown Organization [facility] Address [address] [place] [address] Phone [phone] Care Team Providers Care Boiler Control Room Operator Name Role Phone Topher Gutierrez MD Primary Care Provider [phone]- [phone] Reason for Visit * Reason Comments Follow Up Patient is here for a 6 month follow up. Patient needs script refills, patient would like to discuss gabapentin as well. Patient doesn't feel that it is effective for his neuropathy. Patient has stuffiness in his nose and a slight cough, reports it is usually first thing in the morning. Reports that mucus is green and brown in color. Patient has tried Nyquil with some relief. Encounter Details Date Type Department Care Team (Late st Contact Info) Description 05/21/2024 8:20 AM EST Office Visit [facility] [address] [place] [address] Topher Gutierrez MD [address] [place], [place] [id number] Peripheral polyneuropathy*; Dyslipidemia; Acute sinusitis, recurrence not specified, unspecified location; Postoperative hypothyroidism; Prediabetes; Chronic obstructive pulmonary disease, unspecified COPD type (HCC); Acquired absence of other toe(s), unspecified side (HCC) Allergies No known active allergiesdocumented as of this encounter (statuses as of 05/21/2024) Medications ASPIRIN 325 MG PO TABS one tablet daily Act migdalia MULTIVITAMINS PO CHEW None Entered Active Levothyroxine Sodium 150 MCG Oral Tablet (Levoxyl) Take 1 Tablet by mouth every other day. 08/31/19 22 Active Levothyroxine Sodium 175 MCG Oral Tablet (Levoxyl) Take 1 Tablet by mouth every other day. Alternating with 150mg 06/03/19 Active Tamsulosin HCl 0.4 MG Oral Capsule (Flomax) Take 1 Capsule by mouth every evening. 07/22/19 22 Active Calcium Carbonate 1500 (600 Ca) MG Oral Tablet (Calcium 600) Take 1 Tablet by mouth 2 times a day with morning and evening meals. Active Cinnamon 500 MG Oral Capsule Take 2 Capsules by mouth in the morning. Active Multi-Day Oral Tablet Take by mouth 1 Tablet in the morning. Active Meclizine HCl 25 MG Oral Tablet (Antivert)Indicat ions:Benign paroxysmal positional vertigo, unspecified laterality Take 1 Tablet by mouth 3 times a day as needed for Dizziness. 30 Tablet 1 04/21/20 23 Active metFORMIN HCl 500 MG Oral Tablet (Glucophage)Indic ations:Prediabete s TAKE 1 TABLET BY MOUTH IN THE MORNING AND BEFORE BEDTIME 180 Tablet 3 06/11/19 24 Active Fish Oil 1000 MG Oral Capsule Take 1 Capsule by mouth in the morning. Active Albuterol Sulfate HFA 108 (90 Base) MCG/ACT Inhalation Aerosol SolutionIndicatio ns:Shortness of breath INHALE 2 PUFFS BY MOUTH EVERY 4 HOURS NEEDED FOR WHEEZE 18 g 5 04/02/20 24 Active Urea 20 % External Cream Apply topically to affected area. 03/20/20 24 Active Rosuvastatin Calcium 5 MG Oral Tablet (Crestor)Indicati ons:Dyslipidemia Take 1 Tablet by mouth in the morning. 90 Tablet 3 05/21/19 25 Active traMADol HCl 50 MG Oral Tablet (Ultram)Indicatio ns:Peripheral polyneuropathy Take 1 Tablet by mouth every night at bedtime. 30 Tablet 05/21/19 25 Active Doxycycline Hyclate 100 MG Oral CapsuleIndication s:Acute sinusitis, recurrence not specified, unspecified location Take 1 Capsule by mouth in the morning and 1 Capsule before bedtime. Do all this for 10 days. Until gone.. 20 Capsule 05/21/19 25 025 Active Rosuvastatin Calcium 5 MG Oral Tablet (Crestor) TAKE 1 TABLET BY MOUTH EVERY DAY 90 Tablet 3 04/26/20 23 025 Discontin ued(Refil l) Gabapentin 600 MG Oral Tablet (Neurontin) TAKE 2 TABLETS BY MOUTH AT BEDTIME, may take extra tab needed for exacerbations 270 Tablet 1 02/16/20 24 025 Discontin ued(Medic ation/Dos e Changed) documented as of this encounter (statuses as of 05/21/2024) Active Problems Problem Noted Date Diagnosed Date Chronic obstructive pulmonary disease 11/01/2023 Acquired absence of other toe(s), unspecified si de 09/09/2021 Prediabetes 09/09/2021 Dyslipidemia 09/09/2021 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/09/2021 History of thyroid cancer 09/09/2021 Personal history of malignant neoplasm of prosta te 09/09/2021 Postoperative hypothyroidism 09/09/2021 documented as of this encounter (statuses as of 05/21/2024) Resolved Problems Problem Noted Date Diagnosed Date Resolved Date Gangrene of toe 06/14/2013 09/09/2021 Atherosclerotic PVD with ulceration 05/17/2013 04/21/2023 documented as of this encounter (statuses as of 05/21/2024) Immunizations Name Administration Dates Next Due COVID-19 mRNA, LNP-s, No Pre serve, 2-Dose Series (Moderna) 07/17/2020,06/19/2020 COVID-19, MRNA-LNP, PF, 50 M CG/0.5 mL, 12 YRS AND ABOVE, IM (MODERNA-Spikevax) 02/17/2023 COVID-19, mRNA, LNP-s, PF, B ooster, 100mcg/0.5mg (Moderna) 03/11/2021 Pneumococcal Conjugate Vacc, 13 Valent (Prevnar) 03/02/2016 Pneumococcal Polysaccharide PPV23 (Pneumovax) 08/07/2013 Seasonal Influenza Virus Vac cine, Unspecified Formulation 02/06/2021,02/07/2020,01/07/2015 Seasonal Influenza, Quadriva lent Hd (Fluzone Hd) 02/10/2022 TDAP (age 10 and older)(Boostrix) 01/30/2015 documented as of this encounter Social History Tobacco Use Types Packs/Day Years Used Date Smoking Tobacco: Former Cigarettes Passive Smoke Exposure: Past Smokeless Tobacco: Never Alcohol Use Standard Drinks/Week Comments No 0 (1 standard drink = 0.6 oz pur e alcohol) PHQ-2 Answer Date Recorded PHQ Adult Total Score 0 11/01/2023 Hunger Vital Sign Answer Date Recorded Within the past 12 months, y ou worried that your food would run out before you got the money to buy more. Never true 11/01/19 24 Within the past 12 months, t he food you bought just didn't last and you didn't have money to get more. Never true 11/01/2023 Childcare Answer Date Recorded Do you feel overwhelmed with taking care of a child, family member or friend? No 11/01/2023 Does your family need help f inding childcare? (Household - for ages 0-17 years) Not on file 11/01/2023 Clothing Answer Date Recorded Have you been unable to get clothing when it was really needed? No 11/01/2023 Is your family able to get c lothes or diapers when needed? (Household - for ages 0-17 years) Not on file 11/01/2023 Personal Safety Answer Date Recorded Do you feel unsafe or have concerns for your saf ety? No 11/01/2023 Do you have concerns for you r family's safety? (Household - for ages 0-17 years) Not on file 11/01/2023 Utilities Answer Date Recorded Do you have trouble paying y our heating, water, or electric bill? No 11/01/2023 Is your family able to pay t he heat, water, or electric bill? (Household - for ages 0-17 years) Not on file 11/01/2023 Does your family have access to good internet? (Household - for ages 0-17 years) Not on file 11/01/2023 Employment Status Answer Date Recorded Are you unemployed or without regular income? No 11/01/2023 Does the household have a re gular source of income? (Household - for ages 0-17 years) Not on file 11/01/2023 Social Connections Answer Date Recorded How often do you feel lonely or isolated from th ose around you? Never 11/01/2023 Financial Resource Strain Answer Date R ecorded Do you have any trouble payi ng for your medications, or do you think you might in the future? No 11/01/2023 Does your family have troubl e paying for medicine? (Household - for ages 0-17 years) Not on file 11/01/2023 Transportation Needs Answer Date Record ed Do you have trouble getting a ride to medical visits or work? (Adult - for ages 18 years and over) Not on file 11/01/2023 Does your family have a hard time getting a ride to doctors visits? (Household - for ages 0-17 years) Not on file 11/01/2023 Has lack of transportation k ept you from medical appointments, meetings, work, or from getting things needed for daily living? Check all that apply. No 11/01/2023 Do you (or your family) have trouble finding or paying for a ride (transportation)? (Household - for ages 0-17 years) Not on file 11/01/2023 Housing Stability Answer Date Recorded Do you currently live in a s helter or have no steady place to sleep at night? No 11/01/2023 Do you think you are at risk of becoming homeless? (Adult - for ages 18 years and over) Not on file 11/01/2023 Does your family worry about paying for your home or becoming homeless? (Household - for ages 0-17 years) Not on file 0 11/01/2023 Are you homeless or worried that you might be in the future? No 11/01/2023 Are you (or your family) kevin eless or worried that you might be in the future? (Household - for ages 0-17 years) Not on file Food Insecurity Answer Date Recorded Do you need food for this week? No 11/01/2023 Are you able to get enough f ood for your family? (Household - for ages 0-17 years) Not on file 11/01/2023 Does your family need food t his week? (Household - for ages 0-17 years) Not on file 11/01/2023 Do you always have enough fo od for your family? (Household - for ages 0-17 years) Not on file 11/01/2023 Sex and Gender Information Value Date Recorded Sex Assigned at Male 11/01/2023 8:20 AM EDT Legal Sex Male 5:57 AM EST Gender Identity Male 11/01/2023 8:20 AM EDT Sexual Orientation Straight 11/01/2023 8: 20 AM EDT documented as of this encounter Last Filed Vital Signs Vital Sign Reading Time Taken Comments Blood Pressure 155/65 05/21/2024 8:25 AM EST Pulse 90 05/21/2024 8:25 AM EST Temperature 36.8 C (98.2 F) 05/21/2024 8:25 AM ES T Respiratory Rate 16 05/21/2024 8:25 AM EST Oxygen Saturation 96% 05/21/2024 8:25 AM EST Inhaled Oxygen Concentration - - Weight 85.1 kg (187 lb 9.6 oz) 05/21/2024 8:25 A M EST Height 177.8 cm (5' 10") 05/21/2024 8:25 AM EST Body Mass Index 26.92 05/21/2024 8:25 AM EST documented in this encounter Progress Notes * Aracelis Thompson MED ASSIST - 05/21/2024 9:27 AM EST bilateral ear lavage done with large amount of cerumen removed. patient tolerated well. * Topher Gutierrez MD - 05/21/2024 8:53 AM EST Subjective: Eldon Long is a 78 year old male here today for Chief Complaint Patient presents with Follow Up Patient is here for a 6 month follow up. Patient needs script refills, patient would like to discuss gabapentin as well. Patient doesn't feel that it is effective for his neuropathy. Patient has stuffiness in his nose and a slight cough, reports it is usually first thing in the morning. Reports that mucus is green and brown in color. Patient has tried Nyquil with some relief. Patient presents for routine return. States his biggest concern is in regards to his neuropathy. Effects both lower extremities. Burning pain on the soles of his feet keep him from sleeping at nighttime. He states it does not bother him too much during the day. This has been a longstanding concern.Had previous workup with previous physician. 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 Did see a veneer drier who said that he may be able to help but it would require surgery on the bottoms of his feet. He has not been interested in surgical options. He has been on gabapentin. His dose has been progressively increased over the last several years but he does not believe it is helping at all. He is not aware of any side effects to the gabapentin. He is interested in trying just a straight pain medication at night time. Would not needed throughout the day. He is also having about a month of nasal congestion, upper respiratory congestion, postnasal drip, cough. Mucus drainage is discolored. Not getting great relief with [id number]. We did review his most recent labs. No concerning findings. No past medical history on file. Past Surgical History: Procedure Laterality Date AMPUTATION OF TOE 06/20/13 Left great toe amputatuion through the mid shaft of the first Phalanx 06/20/13 Dr. Underwood at [facility] Kunal Decker PA-C VEIN BYPASS,FEM-TIB/PER 05/08/13 Left femoral infrapoplital bypass with reverse saphenous vein 05/08/13 Dr. Underwood [employer] Kunal Decker PA-C Review of patient's allergies indicates: No Known Allergies Current Outpatient Medications Medication Sig Dispense Refill ASPIRIN 325 MG PO TABS one tablet daily MULTIVITAMINS PO CHEW None Entered Levothyroxine Sodium 150 MCG Oral Tablet (Levoxyl) Take 1 Tablet by mouth every other day. Levothyroxine Sodium 175 MCG Oral Tablet (Levoxyl) Take 1 Tablet by mouth every other day. Alternating with 150mg Tamsulosin HCl 0.4 MG Oral Capsule (Flomax) Take 1 Capsule by mouth every evening. Calcium Carbonate 1500 (600 Ca) MG Oral Tablet (Calcium 600) Take 1 Tablet by mouth 2 times a day with morning and evening meals. Cinnamon 500 MG Oral Capsule Take 2 Capsules by mouth in the morning. Multi-Day Oral Tablet Take by mouth 1 Tablet in the morning. metFORMIN HCl 500 MG Oral Tablet (Glucophage) TAKE 1 TABLET BY MOUTH IN THE MORNING AND BEFORE BEDTIME 180 Tablet 3 Albuterol Sulfate HFA 108 (90 Base) MCG/ACT Inhalation Aerosol Solution INHALE 2 PUFFS BY MOUTH EVERY 4 HOURS NEEDED FOR WHEEZE 18 g 5 Urea 20 % External Cream Apply topically to affected area. Rosuvastatin Calcium 5 MG Oral Tablet (Crestor) Take 1 Tablet by mouth in the morning. 90 Tablet 3 traMADol HCl 50 MG Oral Tablet (Ultram) Take 1 Tablet by mouth every night at bedtime. 30 Tablet 0 Doxycycline Hyclate 100 MG Oral Capsule Take 1 Capsule by mouth in the morning and 1 Capsule beforebedtime. Do all this for 10 days. Until gone.. 20 Capsule 0 Meclizine HCl 25 MG Oral Tablet (Antivert) Take 1 Tablet by mouth 3 times a day as needed for Dizziness. 30 Tablet 1 Fish Oil 1000 MG Oral Capsule Take 1 Capsule by mouth in the morning. (Patient not taking: Reportedon 05/21/2024) No current facility-administered medications for this visit. Objective: BP 155/65 | Pulse 90 | Temp 98.2 F (36.8 C) (Tympanic) | Resp 16 | Ht 5' 10" (1.778 m) | Wt 187 lb 9.6 oz (85.1 kg) | SpO2 96% | BMI 26.92 kg/m | BSA 2.05 m GEN: NAD HEENT: Benign. Cerumen impaction bilaterally. NECK: Supple with no LAD, TM, JVD CHEST: CTA B CV: RRR ABD: Soft, NT/ND, No HSM, NABS EXT: No c,c,e Assessment and Plan: Peripheral polyneuropathy (Primary) - traMADol HCl 50 MG Oral Tablet (Ultram); Take 1 Tablet by mouth every night at bedtime. -trial of tramadol at bedtime. We reviewed potential side effects of opioid therapy and reviewed risks of dependence. He is agreeable to a trial. He will stop the gabapentin. Will call in 3 weeks karina update. He does not intend on taking the medication during the day. Dyslipidemia - Rosuvastatin Calcium 5 MG Oral Tablet (Crestor); Take 1 Tablet by mouth in the morning. Acute sinusitis, recurrence not specified, unspecified location - Doxycycline Hyclate 100 MG Oral Capsule; Take 1 Capsule by mouth in the morning and 1 Capsule before bedtime. Do all this for 10 days. Until gone.. -call for new or worsening symptoms Postoperative hypothyroidism -continue thyroid replacement. Prediabetes -hemoglobin A1c currently normal. Chronic obstructive pulmonary disease, unspecified COPD type (HCC) -no active symptoms Acquired absence of other toe(s), unspecified side (HCC) -stable, continue to follow-up at the MD. Cerumen impactions -cleared by nursing through lavage Follow Up: Return in about 6 months (around 11/18/2024) for recheck. | For: recheck 42 min with pt, chart review, documentation Topher Gutierrez MD documented in this encounter Nursing Notes * Aracelis Thompson MED ASSIST - 05/21/2024 8:33 AM EST The patient has been properly identified by confirmation of name and date of . Chief Complaint Patient presents with Follow Up Patient is here for a 6 month follow up. Patient needs script refills, patient would like to discuss gabapentin as well. Patient doesn't feel that it is effective for his neuropathy. Patient has stuffiness in his nose and a slight cough, reports it is usually first thing in the morning. Reports that mucus is green and brown in color. Patient has tried Nyquil with some relief. documented in this encounter Plan of Treatment Upcoming Encounters Date Type Department Care Team (Late st Contact Info) Description 2024 8:00 AM EDT Office Visit [facility] Erika Davidson [address] [address] Topher Gutierrez [facility] [address] [facility] [place] [address] Health Maintenance Due Date Last Done Comments Alpha-1 Antitrypsin 1963 Zoster Vaccines (1 of 2) 1996 Adult Wellness Visit 2012 *BASELINE EKG FOR HTN 05/08/2014 *COPD SEVERITY VERIFIED BY PFT 11/04/2023 COVID-19 Vaccine ( season) 2024 02/09/2024, 02/09/2024, 02/17/2023, Additional history exists Depression Screening 10/31/2024 11/01/2023 DTap/Tdap Vaccines (2 - Td or Tdap) 01/30/2025 01/30/2015, 11/15/1994 HbA1c 05/10/2025 05/10/2024, 04/08, 02/10/2022 TSH 05/10/2025 05/10/2024, 04/08, 02/10/2022, Additional history exists O2 ASSESSMENT COMPLETED IN PAST YEAR FOR COPD 05/21/2025 05/21/2024 Pneumococcal Vaccine: 50+ Years Completed 03/02/2016, 08/07/2013 Fecal Occult Blood Test Discontinued 07/10/19, 04/17/2019, 04/08/2017 Colonoscopy Discontinued 10/18/2023, 05/04/2018 Colorectal Cancer Screening Discontinued Influenza Vaccine (FLU shot) Completed 02/09/2024, 02/10/2022, 03/11/2021, Additional history exists Cologuard Discontinued HPV (Gardasil) Vaccine Aged Out No lo nger eligible based on patient's age to complete this topic Hepatitis B Vaccine Aged Out No longe r eligible based on patient's age to complete this topic Hepatitis C Screening Discontinued MENINGOCOCCAL (MENACTRA/MENVEO) Aged Out No longer eligible based on patient's age to complete this topic Sigmoidoscopy Discontinued documented as of this encounter Medical Devices Not on filedocumented as of this encounter Visit Diagnoses Diagnosis Peripheral polyneuropathy- Primary Unspecified hereditary and idiopathic peripheral neuropathy Dyslipidemia Other and unspecified hyperlipidemia Acute sinusitis, recurrence not specified, unspecified location Postoperative hypothyroidism Postsurgical hypothyroidism Prediabetes Other abnormal glucose Chronic obstructive pulmonary disease, unspecified COPD type (HCC) Acquired absence of other toe(s), unspecified side (HCC) documented in this encounter Care Teams Boiler Control Room Operator Relationship Specialty Start Date End Date Topher Gutierrez MD PCP - General Family Medicine 07/20/21 documented as of this encounter
--- OUTSIDE RECORDS SUMMARY | 2024-07-17 02:43 | External Medical Summary | Summary of Care ---
Author Name Unknown Organization [facility] Address [address] [place] [address] Phone [phone] Care Team Providers Care Certifier Name Role Phone Topher Gutierrez MD Primary Care Provider +1- [phone] Encounter Details Date Type Department Care Team (Late st Contact Info) Description 05/31/2024 Population Health External Data Unspecified Department Allergies No known active allergiesdocumented as of this encounter (statuses as of 05/31/2024) Medications ASPIRIN 325 MG PO TABS one tablet daily Active MULTIVITAMINS PO CHEW None Entered Active Levothyroxine Sodium 150 MCG Oral Tablet (Levoxyl) Take 1 Tablet by mouth every other day. 08/31/19 22 Active Levothyroxine Sodium 175 MCG Oral Tablet (Levoxyl) Take 1 Tablet by mouth every other day. Alternating with 150mg 06/03/19 22 Active Tamsulosin HCl 0.4 MG Oral Capsule [...] Active Meclizine HCl 25 MG Oral Tablet (Antivert)Indicati ons:Benign paroxysmal positional vertigo, unspecified laterality Take 1 Tablet by mouth 3 times a day as needed for Dizziness. 30 Tablet 1 04/21/20 23 Active metFORMIN HCl 500 MG Oral Tablet (Glucophage)Indica tions:Prediabetes TAKE 1 TABLET BY MOUTH IN THE MORNING AND BEFORE BEDTIME 180 Tablet 3 06/11/19 24 Active Fish Oil 1000 MG Oral Capsule Take 1 Capsule by mouth in the morning. Active Albuterol Sulfate HFA 108 (90 Base) MCG/ACT Inhalation Aerosol SolutionIndication s:Shortness of breath INHALE 2 PUFFS BY MOUTH EVERY 4 HOURS NEEDED FOR WHEEZE 18 g 5 04/02/20 24 Active Urea 20 % External Cream Apply topically to affected area. 03/20/20 24 Active Rosuvastatin Calcium 5 MG Oral Tablet (Crestor)Indicatio ns:Dyslipidemia Take 1 Tablet by mouth in the morning. 90 Tablet 3 05/21/19 25 Active traMADol HCl 50 MG Oral Tablet (Ultram)Indication s:Peripheral polyneuropathy Take 1 Tablet by mouth every night at bedtime. 30 Tablet 05/21/19 25 Active Doxycycline Hyclate 100 MG Oral CapsuleIndications :Acute sinusitis, recurrence not specified, unspecified location Take 1 Capsule by mouth in the morning and 1 Capsule before bedtime. Do all this for 10 days. Until gone.. 20 Capsule 05/21/19 25 025 Active documented as of this encounter (statuses as of 05/31/2024) Active Problems Problem Noted Date Diagnosed Date Chronic obstructive pulmonary disease 11/01/2023 Acquired absence of other toe(s), unspecified si de 09/09/2021 Dyslipidemia 09/09/2021 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/09/2021 History of thyroid cancer 09/09/2021 Personal history of malignant neoplasm of prosta te 09/09/2021 Postoperative hypothyroidism 09/09/2021 documented as of this encounter (statuses as of 05/31/2024) Resolved Problems Problem Noted Date Diagnosed Date Resolved Date Prediabetes 09/09/2021 05/24/2024 Gangrene of toe 06/14/2013 09/09/2021 Atherosclerotic PVD with ulceration 05/17/2013 04/21/2023 documented as of this encounter (statuses as of 05/31/2024) Immunizations Name Administration Dates Next Due COVID-19 [...] No 11/01/2023 Does the household have a [facility]? (Household - for ages [...] AM EDT documented as of this encounter Plan of Treatment Upcoming Encounters Date Type Department Care Team (Late st Contact Info) Description 2024 8:00 AM EDT Office Visit [facility] Erika Davidson [address] [phone] Topher Gutierrez MD [address] [place] [address] Health Maintenance Due Date Last Done Comments Alpha-1 Antitrypsin 1964 Zoster Vaccines (1 of 2) 1996 Adult Wellness Visit 2012 *BASELINE EKG FOR HTN 05/08/2014 *COPD SEVERITY VERIFIED BY PFT 11/04/2023 Depression Screening 10/31/2024 11/01/2023 DTap/Tdap Vaccines (2 - Td or Tdap) 01/30/2025 01/30/2015, 11/15/1994 TSH 05/10/2025 05/10/2024, 04/08, 02/10/2022, Additional history exists O2 ASSESSMENT COMPLETED IN PAST YEAR FOR COPD 05/21/2025 05/21/2024 Pneumococcal Vaccine: 50+ Years Completed 03/02/2016, 08/07/2013 Fecal Occult Blood Test Discontinued 07/10/19 21, 04/17/2019, 04/08/2017 Colonoscopy Discontinued 10/18/2023, 05/04/2018 Colorectal Cancer Screening Discontinued COVID-19 Vaccine Completed 02/09/2024, 04/2023, 03/04/2022, Additional history exists Influenza Vaccine (FLU shot) Completed 02/09/2024, 02/10/2022, [...] Not on filedocumented as of this encounter Care Teams Certifier Relationship Specialty Start Date End Date Topher Gutierrez MD PCP - General Family Medicine 07/20/21 documented as of this encounter
--- OUTSIDE RECORDS SUMMARY | 2024-07-17 02:43 | External Medical Summary | Summary of Care ---
Author Name Unknown Organization [facility] Address [address] [place] [address] Phone [phone] Care Team Providers Care Cloth Printer Name Role Phone Topher Gutierrez MD Primary Care Provider +1- [phone] Encounter Details Date Type Department Care Team (Late st Contact Info) Description 05/30/2024 Orders Only [facility] [address] [facility] [place] [address] Topher Gutierrez MD [address] [place] [address] Allergies No known active allergiesdocumented as of this encounter (statuses as of 05/30/2024) Medications ASPIRIN 325 MG PO TABS one tablet daily Active MULTIVITAMINS PO CHEW None Entered Active Levothyroxine Sodium 150 MCG Oral Tablet (Levoxyl) Take 1 Tablet by mouth every other day. 08/31/19 Active Levothyroxine Sodium 175 MCG Oral Tablet (Levoxyl) Take 1 Tablet by mouth every other day. Alternating with 150mg 06/03/19 Active Tamsulosin HCl 0.4 MG Oral Capsule (Flomax) Take 1 Capsule by mouth every evening. 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 (Household - for ages [...] Description 2024 8:00 AM EDT Office Visit [facility] Erika Davidson [address] [address] Topher Gutierrez MD [address] [address] Health Maintenance Due Date Last Done Comments [...] Not on filedocumented as of this encounter Procedures Procedure Name Priority Date/Time Associated Diagnosis Comments CT CHEST LOW DOSE SCAN LUNG CANCER SCREEN INITIAL Routine 05/25/2024 documented in this encounter Results * CT CHEST LOW DOSE SCAN LUNG CANCER SCREEN INITIAL (05/25/2024) Anatomical Region Laterality Modality Chest, Body, Cardio, Lung Other 05/25/2024 us History Per Patient RAD CT Final Result documented in this encounter Care Teams Cloth Printer Relationship Specialty Start Date End Date Topher Gutierrez MD PCP - General Family Medicine 07/20/21 documented as of this encounter
--- OUTSIDE RECORDS SUMMARY | 2024-07-17 02:44 | External Medical Summary ---
Author Name Unknown Address Unknown Organization [id number]:LABORATORY [facility] [place] - [address] [facility] [address] Laboratory Report Ordering Provider Test Date Status JEREMIAH MAURICE 05/10/2024 09:46:26 Final Observation Date Value Abnormality Reference (Units ) Status PSA 05/10/2024 09:46:26 0.20 <4.10 (ng/ mL) Final Performing Location [facility]ATORY [facility] - [address] [place] [address]
--- OUTSIDE RECORDS SUMMARY | 2024-07-17 02:44 | External Medical Summary ---
Author Name Unknown Address Unknown Organization [id number]:[facility] [place] [address] [address] Laboratory Report Ordering Provider Test Date Status JEREMIAH MAURICE 05/10/2024 09:46:26 Final Observation Date Value Abnormality Reference (Units ) Status Vitamin B12 05/10/2024 09:46:26 [id number] (pg/mL) Final Performing Location LABORATORY [facility] - [address] [place] [address]
--- OUTSIDE RECORDS SUMMARY | 2024-07-17 02:44 | External Medical Summary | Summary of Care ---
Author Name Unknown Organization [facility] Address [address] [place] [address] Phone [phone] Care Team Providers Care Mushroom Spawn Maker Name Role Phone Josafat Daniels MD Primary Care Provider +1- [phone] Reason for Visit * Reason Comments eRx-Medication Refill Encounter Details Date Type Department Care Team (Late st Contact Info) Description 04/01/2024 Refill [facility] [address] [place] [address] Josafat Daniels MD [address] [place] [address] Shortness of breath Allergies No known active allergiesdocumented as of this encounter (statuses as of 04/02/2024) Medications ASPIRIN 325 MG PO TABS one [...] Active Meclizine HCl 25 MG Oral Tablet (Antivert)Angelique cations:Benign paroxysmal positional vertigo, unspecified laterality Take 1 Tablet by mouth 3 times a day as needed for Dizziness. 30 Tablet 1 04/21/20 23 Active Rosuvastatin Calcium 5 MG Oral Tablet (Crestor) TAKE 1 TABLET BY MOUTH EVERY DAY 90 Tablet 3 04/26/20 23 Active metFORMIN HCl 500 MG Oral Tablet (Glucophage)In dications:Pred iabetes TAKE 1 TABLET BY MOUTH IN THE MORNING AND BEFORE BEDTIME 180 Tablet 3 06/11/19 24 Active Fish Oil 1000 MG Oral Capsule Take 1 Capsule by mouth in the morning. Active Gabapentin 600 MG Oral Tablet (Neurontin) TAKE 2 TABLETS BY MOUTH AT BEDTIME, may take extra tab needed for exacerbations 270 Tablet 1 02/16/20 24 Active Albuterol Sulfate HFA 108 (90 Base) MCG/ACT Inhalation Aerosol SolutionIndica tions:Shortnes s of breath INHALE 2 PUFFS BY MOUTH EVERY 4 HOURS NEEDED FOR WHEEZE 18 g 5 04/02/20 24 Active Albuterol Sulfate HFA 108 (90 Base) MCG/ACT Inhalation Aerosol SolutionIndica tions:Shortnes s of breath INHALE BY MOUTH 2 PUFFS EVERY 4 HOURS NEEDED FOR WHEEZING. 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 History of thyroid cancer 09/09/2021 Personal history of malignant neoplasm of prosta te 09/09/2021 Postoperative hypothyroidism 09/09/2021 documented as of this encounter (statuses as of 04/02/2024) Resolved Problems Problem Noted Date Diagnosed Date Resolved Date Gangrene of toe 06/14/2013 09/09/2021 Atherosclerotic PVD with ulceration 05/17/2013 04/21/2023 documented as of this encounter (statuses as of 04/02/2024) Immunizations Name Administration Dates Next Due COVID-19 [...] AM EDT documented as of this encounter Miscellaneous Notes * Telephone Encounter - Ernesto Santamaria RPh - 04/02/2024 9:19 PM EST Signed Prescriptions: Disp Refills Albuterol Sulfate HFA 108 (90 Base) MCG/AC*18 g 5 Sig: INHALE 2 PUFFS BY MOUTH EVERY 4 HOURS NEEDED FOR WHEEZEAuthorizing Provider: JOSAFAT DANIELS User: ERNESTO SANTAMARIA documented in this encounter Plan of Treatment Upcoming Encounters Date Type Department Care Team (Late st Contact Info) Description 05/21/2024 8:20 AM EST [facility] [address] [phone] Josafat Daniels MD [address] [address] Health Maintenance Due Date Last Done Comments Alpha-1 Antitrypsin 1963 Zoster Vaccines (1 of 2) 1996 Adult Wellness Visit 2012 *BASELINE EKG FOR HTN 05/08/2014 *COPD SEVERITY VERIFIED BY PFT 11/04/2023 COVID-19 Vaccine ( season) 2024 02/09/2024, 02/17/2023, 03/11/2021, Additional history exists HbA1c 04/21/2024 04/21/2023, 02/10/2022 TSH 04/21/2024 04/21/2023, 10/0 09/2021, 04/03/1996 Depression Screening 10/31/2024 11/01/2023 O2 ASSESSMENT COMPLETED IN PAST YEAR FOR COPD 10/31/2024 11/01/2023 DTap/Tdap Vaccines (2 - Td or Tdap) 01/30/2025 01/30/2015, 11/15/1994 Pneumococcal Vaccine: 65+ Years Completed 03/02/2016, 08/07/2013 Fecal Occult Blood [...] as of this encounter Visit Diagnoses Diagnosis Shortness of breath documented in this encounter Care Teams Mushroom Spawn Maker Relationship Specialty Start Date End Date Josafat Daniels MD [address] [address] PCP - General Family Medicine 07/20/21 documented as of this encounter
--- OUTSIDE RECORDS SUMMARY | 2024-07-17 02:44 | External Medical Summary | Summary of Care ---
Author Name Unknown Organization [facility] Address [address] [place] [address] Phone [phone] Care Team Providers Care Ski Instructor Name Role Phone Topher Gutierrez MD Primary Care Provider +1- [phone] Reason for Visit * Reason Comments Outpatient Testing Encounter Details Date Type Department Care Team (Late st Contact Info) Description 05/10/2024 9:40 AM EST Laboratory Laboratory, [facility] [address] [place] [address] [facility] [address] [place] [address] Prediabetes; Encounter for long-term (current) use of medications; Postoperative hypothyroidism; Personal history of malignant neoplasm of prostate; Dyslipidemia Allergies No known active allergiesdocumented as of this encounter (statuses as of 05/10/2024) Medications ASPIRIN 325 MG PO TABS one tablet daily Act migdalia MULTIVITAMINS PO CHEW None Entered Active Levothyroxine Sodium 150 MCG Oral Tablet (Levoxyl) Take 1 Tablet by mouth every other day. 2 Active Levothyroxine Sodium 175 MCG Oral Tablet (Levoxyl) Take 1 Tablet by mouth every other day. Alternating with 150mg 2 Active Tamsulosin HCl 0.4 MG Oral Capsule (Flomax) Take 1 Capsule by mouth every evening. 2 Active Calcium Carbonate 1500 (600 Ca) MG Oral Tablet (Calcium 600) Take 1 Tablet by mouth 2 times a day with morning and evening meals. Active Cinnamon 500 MG Oral Capsule Take 2 Capsules by mouth in the morning. Active Multi-Day Oral Tablet Take by mouth 1 Tablet in the morning. Active Meclizine HCl 25 MG Oral Tablet (Antivert)Indic ations:Benign paroxysmal positional vertigo, unspecified laterality Take 1 Tablet by mouth 3 times a day as needed for Dizziness. 30 Tablet 1 3 Active Rosuvastatin Calcium 5 MG Oral Tablet (Crestor) TAKE 1 TABLET BY MOUTH EVERY DAY 90 Tablet 3 3 Active metFORMIN HCl 500 MG Oral Tablet (Glucophage)Ind ications:Predia betes TAKE 1 TABLET BY MOUTH IN THE MORNING AND BEFORE BEDTIME 180 Tablet 3 4 Active Fish Oil 1000 MG Oral Capsule Take 1 Capsule by mouth in the morning. 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 History of thyroid cancer 09/09/2021 Personal history of malignant neoplasm of prosta te 09/09/2021 Postoperative hypothyroidism 09/09/2021 documented as of this encounter (statuses as of 05/10/2024) Resolved Problems Problem Noted Date Diagnosed Date Resolved Date Gangrene of toe 06/14/2013 09/09/2021 Atherosclerotic PVD with ulceration 05/17/2013 04/21/2023 documented as of this encounter (statuses as of 05/10/2024) Immunizations Name Administration Dates Next Due COVID-19 [...] Description 05/21/2024 8:20 AM EST [facility] [address] [phone] Topher Gutierrez MD [address] [address] Pending Results Name Type Priority Associated Diagnoses Date /Time HEMOGLOBIN A1C Lab Routine Prediabetes 05/10/2024 9:46 AM EST VITAMIN B12 Lab Routine Encounter for long-term (current) use of medications 05/10/2024 9:46 AM EST MAGNESIUM Lab Routine Encounter for long-term (current) use of medications 05/10/2024 9:46 AM EST TSH WITH FREE T4 IF INDICATED Lab Routine Postoperative hypothyroidism 05/10/2024 9:46 AM EST PSA Lab Routine Personal history of malignant neoplasm of prostate 05/10/2024 9:46 AM EST LIPID PANEL WITH DIRECT LDL IF TG IS HIGH Lab Routine Dyslipidemia 05/10/2024 9:46 AM EST Health Maintenance Due Date Last Done Comments Alpha-1 Antitrypsin 1963 Zoster Vaccines (1 of 2) 1996 Adult Wellness Visit 2012 *BASELINE EKG FOR HTN 05/08/2014 *COPD SEVERITY VERIFIED BY PFT 11/04/2023 COVID-19 Vaccine ( season) 2024 02/09/2024, 02/09/2024, 02/17/2023, Additional history exists HbA1c 04/21/2024 04/21/2023, 02/10/2022 TSH 04/21/2024 04/21/2023, 09/2021, 04/03/1996 Depression Screening 10/31/2024 11/01/2023 O2 ASSESSMENT COMPLETED IN PAST YEAR FOR COPD 10/31/2024 11/01/2023 DTap/Tdap Vaccines (2 - Td or Tdap) 01/30/2025 01/30/2015, 11/15/1994 Pneumococcal Vaccine: 50+ Years Completed 03/02/2016, 08/07/2013 [...] as of this encounter Visit Diagnoses Diagnosis Prediabetes Other abnormal glucose Encounter for long-term (current) use of medications Encounter for long-term (current) use of other medications Postoperative hypothyroidism Postsurgical hypothyroidism Personal history of malignant neoplasm of prostate Dyslipidemia Other and unspecified hyperlipidemia documented in this encounter Care Teams Ski Instructor Relationship Specialty Start Date End Date Topher Gutierrez MD PCP - General Family Medicine 07/20/21 documented as of this encounter
--- OUTSIDE RECORDS SUMMARY | 2024-07-17 02:44 | External Medical Summary | Summary of Care ---
Author Name Unknown Organization [facility] Address [address] [place] [address] Phone [phone] Care Team Providers Care Political Consultant Name Role Phone Topher Gutierrez MD Primary Care Provider +1- [phone] Encounter Details Date Type Department Care Team (Late st Contact Info) Description 04/23/2024 Orders Only [facility] [address] [place] [address] Alexandra Huang CHRA [employer] Research Other*[id number] Allergies No known active allergiesdocumented as of this encounter (statuses as of 04/23/2024) Medications ASPIRIN 325 MG PO TABS one [...] as of this encounter (statuses as of 04/23/2024) Active Problems Problem Noted Date Diagnosed Date Chronic obstructive pulmonary disease 11/01/2023 Acquired absence of other toe(s), unspecified si de 09/09/2021 Prediabetes 09/09/2021 Dyslipidemia 09/09/2021 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 Never true 11/01/19 Within the past 12 months, t he [...] Description 05/21/2024 8:20 AM EST Office Visit [facility] Erika Davidson [address] [phone] Topher Gutierrez MD [address] [facility] [address] [address] Scheduled Orders Name Type Priority Associated Diagnoses Orde r Schedule MYCODE SUBSEQUENT ADULT Lab Routine [facility] Other*[id number] Every 6 Months for 2 Occurrences starting 04/23/2024 until 05/13/2025 Health Maintenance Due Date Last Done Comments Alpha-1 Antitrypsin 1963 Zoster Vaccines (1 of 2) 1996 Adult Wellness Visit 2012 *BASELINE EKG FOR HTN 05/08/2014 *COPD SEVERITY VERIFIED BY PFT 11/04/2023 COVID-19 Vaccine ( season) 2024 02/09/2024, 02/17/2023, 03/11/2021, Additional history exists HbA1c 04/21/2024 04/21/2023, 02/10/2022 TSH 04/21/2024 04/21/2023, 1009/2021, 04/03/1996 Depression Screening 10/31/2024 11/01/2023 O2 ASSESSMENT [...] as of this encounter Visit Diagnoses Diagnosis [facility] Other*[id number] documented in this encounter Care Teams Political Consultant Relationship Specialty Start Date End Date Topher Gutierrez MD [address] [place] [address] PCP - General Family Medicine 07/20/21 documented as of this encounter
--- OUTSIDE RECORDS SUMMARY | 2024-07-17 02:44 | External Medical Summary ---
Author Name Unknown Address Unknown Organization K01:[facility] [place] [address] [facility] [address] Laboratory Report Ordering Provider Test Date Status JEREMIAH MAURICE 05/10/2024 09:46:26 Final Observation Date Value Abnormality Reference (Units ) Status HbA1C 05/10/2024 09:46:26 5.6 4.0-5.6 (% ) Final The use of HbA1c to monitor glycemic status is based on normal hemoglobin and HbA composition. This test should not be used in patients with abnormal hemoglobin that affects the half life of the red blood cell or the in vivo glycation rates. Glucose, estimated average 05/10/2024 09:46:26 114 <126 (mg/dL) Final Performing Location LAB[facility]ORY [facility] [place] [address] [facility] [address]
--- OUTSIDE RECORDS SUMMARY | 2024-07-17 02:44 | External Medical Summary ---
Author Name Unknown Address Unknown Organization K01:LABORATORY [facility] - [address] [address] Laboratory Report Ordering Provider Test Date Status JEREMIAH MAURICE 05/10/2024 09:46:26 Final Observation Date Value Abnormality Reference (Units ) Status Magnesium 05/10/2024 09:46:26 2.2 1.5-2.6 (m g/dL) Final Performing Location LABORATORY [facility] - [address] [place] [address]
--- OUTSIDE RECORDS SUMMARY | 2024-07-17 02:44 | External Medical Summary | Summary of Care ---
Author Name Unknown Organization [facility] Address [address] [place] [address] Phone [phone] Care Team Providers Care Special Day Class Teacher Name Role Phone Topher Gutierrez MD Primary Care Provider +1- [phone] Reason for Visit * Reason Comments Outpatient Testing Encounter Details Date Type Department Care Team (Late st Contact Info) Description 05/10/2024 9:40 AM EST Laboratory Laboratory, [facility] [address] [place] [address] [facility] [address] [place] [address] Prediabetes; Encounter for long-term (current) use of [...] 05/21/2024 8:20 AM EST [facility] [address] [phone] Topher Gutierrez MD [address] [address] Pending Results Name Type Priority Associated Diagnoses [...] hyperlipidemia documented in this encounter Care Teams Special Day Class Teacher Relationship Specialty Start Date End Date Topher Gutierrez MD PCP - General Family Medicine 07/20/21 documented as of this encounter
--- OUTSIDE RECORDS SUMMARY | 2024-07-17 02:44 | External Medical Summary ---
Author Name Unknown Address Unknown Organization K01:LABORATORY [facility] [place] - [address] [facility] [address] Laboratory Report Ordering Provider Test Date Status JEREMIAH MAURICE 05/10/2024 09:46:26 Final Observation Date Value Abnormality Reference (Units ) Status Triglyceride 05/10/2024 09:46:26 145 <=174 ( mg/dL) Final Triglyceride Reference Range s (mg/dL):
<150 Acceptable
150-174 Borderline high
175-499 High
>=500 Very high Cholesterol 05/10/2024 09:46:26 174 <200 (mg /dL) Final Total Cholesterol Reference Ranges (mg/dL):
<200 Desirable
200-239 Borderline high
>=240 High HDL 05/10/2024 09:46:26 53 >39 (mg/dL ) Final HDL Cholesterol Reference Ra nges (mg/dL):
>=60 High (Desirable)
<50 Low (Undesirable) For Females
<40 Low (Undesirable) For Males NON-HDL CHOLESTEROL 05/10/2024 09:46:26 121 <=159 (mg/dL) Final Non-HDL Cholesterol Referenc e Range (mg/dL):
<100 Target level for high risk ASCVD patient
<130 Optimal for general population
130-159 Near optimal for general population
160-189 Borderline High
190-219 High
>=220 Very High LDL, (calculated) 05/10/2024 09:46:26 92 <= 129 (mg/dL) Final LDL Cholesterol Reference Ra nges (mg/dL):
<70 Target level for high risk ASCVD patient
<100 Optimal for general population
100-129 Near optimal for general population
130-159 Borderline high
160-189 High
>=190 Very high Performing Location LABORATORY [facility] [place] - [address] [facility] [address]
--- OUTSIDE RECORDS SUMMARY | 2024-07-17 02:44 | External Medical Summary ---
Author Name Unknown Address Unknown Organization K01:LAB[facility]ORY [facility] [place] [address] [place] [address] Laboratory Report Ordering Provider Test Date Status JEREMIAH MAURICE 05/10/2024 09:46:26 Final Observation Date Value Abnormality Reference (Units ) Status TSH 05/10/2024 09:46:26 3.68 0.27-4.20 (uIU/mL) Final Performing Location LABORATORY [facility] [place] [address] [place] [address]
[2024-07-17] MEDS: SODIUM CHLORIDE 0.9% 500 ML IV ONE (03:07)
[2024-07-17] MEDS: SODIUM CHLORIDE 0.9% 1,000 ML IV ONE (03:07)
[2024-07-17 03:20] LABS: Appearance Urine Clear (Clear); Bilirubin Urine Negative (Negative); Blood Urine Negative (Negative); Color Urine Yellow; Glucose Urine UA Negative (Negative); Ketones Urine Trace (Negative); Leukocyte Esterase Urine Negative (Negative); Nitrite Urine Negative (Negative); Protein Urine Negative (Negative); Specific Gravity Urine 1.026 (1.000-1.030); Urobilinogen Urine Negative (Negative)
[2024-07-17] MEDS ORDERED: AZITHROMYCIN 500 MG VIAL IV STA (03:26)
[2024-07-17] MEDS: AZITHROMYCIN 500 MG/255 ML D5W BAG IV STA (03:55)
--- NOTE | 2024-07-17 04:06 | History & Physical Report ---
Date of Service July 17, 2024 Assessment & Plan (1) Elevated lactic acid level: (2) Fever: (3) COPD (chronic obstructive pulmonary disease): (4) Diabetes: (5) Hypothyroidism, postablative: Plan Patient is a 78 yo M w/ a PMHx of COPD, T2DM, peripheral neuropathy, hypothyroid ism (s/p thyroidectomy), Hx of prostate cancer, Hx of lisha right knee replacement, PAD, s/p l. hallus amputation, BPH presenting today w/ 1-day Hx of tactile fever, chills, and rigors. 1) Chills, rigors/SIRS Criteria/potential pnemonia - pt w/ chills, rigors at home; tactile fever; HR, 108; T, 38.5 C; WBC, 13.9 upon admission - unknown source of infection but most likely pulmonary; lactate, 2.2; - procal, 0.17; Resp BioFire, hu-negative; urine analysis, unremarkable - CXR: Bilateral perihilar and bibasilar prominent bronchovascular markings with interstitial thickening. Appearance may be attributed to chronic bronchitis - 1 dose Cefepime given in ED; 3 L NSS in ED - Ceftriaxone, 2g, IV, q24 hrs - Blood cultures, pending 2) COPD exacerbation/COPD - no increased sputum, no change of color of sputum, mildly dyspneic - wheezing of r. posterior lungs - azithromycin, 250 mg, PO, daily for 4 more days - Duonebs, BIDR, 3mg/0.5 mg, 3 mL Chronic Conditions #T2DM/peripheral neuropathy - Basal-bolus insulin ordered - gabapentin #Cardiac health - aspirin, Crestor #hypothyroidism - levothyroxine, 150 mcg (every other day); 175 mcg, (every other day) #BPH - tamsulosin Code status: Full code Disposition: Med-Surg FENGI: [id number] Consistent VTE Prophylaxis: Lovenox, 40 mg, subQ, daily History of Present Illness Chief Complaint: Chills and rigors, felt feverish Primary Care Provider: NO PCP Patient is a 78 yo M w/ a PMHx of COPD, T2DM, peripheral neuropathy, hypothyroidism (s/p thyroidectomy), Hx of prostate cancer, Hx of lisha right knee replacement, PAD, s/p l. hallus amputation, presenting today w/ 1-day Hx of tactile fever, chills, and rigors. Patient currently lives independently by himself and called the medics when he realized he wasn't feeling well. Patient denies increased urinary urgency/frequency, dysuria. Denies CP, palpitations. Denies N/V, AP. Last had a bout of diarrhea 1-2 wks ago when he was Dx'ed with a case of the stomach flu. Patient denies any acute dyspnea, cough, wheezing. Patient does endorse some muscle aches to go along with the chills, rigors, tactile fever but didn't feel disoriented or confused. Allergies Allergy/AdvReac Type Severity Reaction Status Date / Time No Known Allergies Allergy Verified 07/17/24 14:26 Home Medications Medication Instructions Recorded Confirmed Type multivitamin (Daily Multi-Vitamin 1 tab PO DAILY 05/10/19 07/17/24 History tablet) omega-3 fatty acids 1,000 mg 1,000 mg PO DAILY 05/10/19 07/17/24 History capsule calcium carbonate (Calcium 600) 600 mg PO BID 02/26/20 07/17/24 History cinnamon bark 500 mg capsule 1,000 mg PO DAILY 02/26/20 07/17/24 History (Cinnamon) metformin 500 mg tablet 500 mg PO BID 02/26/20 07/17/24 History rosuvastatin 5 mg tablet 5 mg PO HS 02/26/20 07/17/24 History fluticasone propionate 50 1 spray intranasal BID PRN 04/07/20 07/17/24 History mcg/actuation nasal Shortness Of Breath spray,suspension aspirin 81 mg tablet,delayed 81 mg PO DAILY 07/06/21 07/17/24 History release ipratropium 0.5 mg-albuterol 3 mg 3 ml inhalation Q6H PRN Shortness 07/06/21 07/17/24 History (2.5 mg base)/3 mL nebulization Of Breath soln meclizine 25 mg tablet 25 mg PO TID PRN dizziness #10 tabs 07/08/21 07/17/24 Rx gabapentin 600 mg tablet 600 mg PO DAILY 03/11/23 07/17/24 History ibuprofen 200 mg tablet (Advil) 200 mg PO Q6H PRN Pain 03/11/23 07/17/24 History tamsulosin 0.4 mg capsule 0.4 mg PO DAILY #90 caps 07/18/23 07/17/24 Rx levothyroxine 150 mcg tablet See Rx Instructions PO .COMPLEX 11/04/23 07/17/24 Rx #45 tabs levothyroxine 175 mcg tablet See Rx Instructions PO .COMPLEX 11/04/23 07/17/24 Rx #45 tabs Past Med/Surg History Problem List Elevated lactic acid level (Acute) Fever (Acute) Carotid aneurysm, right Idiopathic polyneuropathy Neck pain Ambulatory dysfunction (Acute) COPD (chronic obstructive pulmonary disease) Vertigo (Acute) Diabetes Hypothyroidism, postablative Prostate cancer (Chronic 02/07/20) Medical History Headache Hx of thyroid cancer Hypercholesterolemia Elevated PSA PVD (peripheral vascular disease) (05/08/13) Surgical History History of thyroidectomy (~2010) Left H/O extremity bypass graft 2010 (Left Leg - [place]), 2012 (Use graft from right into left - Dr. Ely) H/O total knee replacement (~2014) Right H/O amputation of lesser toe (~2009) Family History Father , Passed age 71 of metastatic prostate cancer Diabetes Mother , Passed age 88 of natural causes (alzheimers) No problems noted. Brother Prostate cancer, Onset Age: 63 Hx Prostatectomy & Radiation Brother No problems noted. Brother No problems noted. Brother No problems noted. Brother No problems noted. Sister No problems noted. Sister No problems noted. Daughter No problems noted. Son No problems noted. Son No problems noted. Social History Smoking Status: Former smoker packs per day: 2; Cigarettes Per Day: 2.5 PPD per 60 years; Second Hand Exposure: No; Do You Dip or Chew Tobacco: No; Tobacco Cessation Education Requested by Patient: No Hx Alcohol Use: Yes Alcohol type: beer Alcohol Intake Frequency: Monthly or Less Hx Substance Use: No Preferred Language: Serbian Communication Ability: Effective Visual Impairment: Limited Hearing Ability: Normal Enrollment Processor Required: No Beliefs That Will Affect Care: None marital status: / Current Living Situation: Alone Current Living Situation Comment: Lives at home alone current occupational status: retired current occupation: Retired [employer] age 56 Other Information That Helps Us Care for You: No Feels Safe at Home: Yes Safety Concerns: Feels Safe At This Time Diet: diabetic caffeine: Yes (2 cups of coffee/day ) during the past year weight has: remained stable Dental Care, Regularly: No Assistive Devices: Cane, Denture - Upper, Denture - Lower and Glasses Review of Systems Review of Systems: as noted in the HPI Constitutional: + fever, + chills and + body aches; no f atigue Physical Exam Constitutional: WD/WN, vitals as above Respiratory: normal respiratory effort; no respiratory distress, no labored breathing and no cough Auscultation: + wheezes (end exp wheezing of r. posterior lungs); no diminished lung sounds, no crackles and no rales Cardiovascular: RRR, no murmur, no edema Gastrointestinal (Abdomen): Inspection/Auscultation: + abdomen distended, normal bowel sounds and + significant pannus Psychiatric: A+Ox3, euthymic affect Results & Data Results & Data Vital Signs (Past 12 Hours) Vital Signs Temp Pulse Pulse Resp BP BP Pulse Ox 07/17/24 03:36 86 18 109/60 94 07/17/24 02:30 37.2 C 105 H 18 122/79 93 07/17/24 02:04 99 H 18 93 07/17/24 01:37 98 07/17/24 01:33 108 H 07/17/24 01:17 38.5 C H 100 H 18 122/72 95 O2 Del Method 07/17/24 03:36 07/17/24 02:30 Room Air 07/17/24 02:04 Room Air 07/17/24 01:37 Room Air 07/17/24 01:33 07/17/24 01:17 Room Air Laboratory Results 07/17/24 07/17/24 07/17/24 Range/Units 04:37 03:05 02:18 WBC (4.8-10.8) K/ul RBC (4.70-6.10) M/uL Hgb (14.0-18.0) g/dl Hct (42.0-52.0) % MCV (80.0-100.0) fL MCH (25.0-34.0) pg MCHC (32.0-36.0) g/dL RDW Std Deviation (36.4-46.3) fL RDW Coeff of Elise (11.5-14.5) % Plt Count (130-400) K/uL MPV (9.4-12.4) fL Immature Gran % (Auto) % Neut % (Auto) % Lymph % (Auto) % [place] % (Auto) % Eos % (Auto) % Baso % (Auto) % Neut # (Auto) (1.40-6.50) K/uL Lymph # (Auto) (1.20-3.40) K/uL [place] # (Auto) (0.11-0.59) K/uL Eos # (Auto) (0.00-0.50) K/uL Baso # (Auto) (0.00-0.20) K/uL Immature Gran # (Auto) (0.01-0.20) K/uL RBC Morphology PT (9.0-12.0) Seconds INR (0.9-1.1) APTT (21-31) Seconds PTT Ratio Sodium (136-145) mmol/L Potassium (3.5-5.1) mmol/L Chloride (98-107) mmol/L Carbon Dioxide (21-32) mmol/L Anion Gap (3-11) BUN (6-23) mg/dl Creatinine (0.6-1.4) mg/dl Est Cr Clr Drug Dosing ml/min eGFR BUN/Creatinine Ratio (10-20) Glucose (70-99(Fasting)) mg/dl Lactate 1.3 2.2 H* (0.4-2.0) mmol/L Calcium (8.6-10.3) mg/dl Magnesium (1.7-2.4) mg/dl Total Bilirubin (0.2-1.0) mg/dl Direct Bilirubin (0-0.2) mg/dl AST (13-39) U/L ALT (7-52) U/L Alkaline Phosphatase (34-104) U/L Troponin I High Sens (0-20) pg/ml Total Protein (6.0-8.3) gm/dl Albumin (3.4-5.0) gm/dl Procalcitonin (0-0.5) ng/ml Urine Color Yellow Urine Appearance Clear (Clear) Urine pH 5.0 (4.5-7.5) Ur Specific [place] 1.026 (1.000-1.030) Urine Protein Negative (Negative) Urine Glucose (UA) Negative (Negative) Urine Ketones Trace H (Negative) Urine Blood Negative (Negative) Urine Nitrite Negative (Negative) Urine Bilirubin Negative (Negative) Urine Urobilinogen Negative (Negative) Ur Leukocyte Esterase Negative (Negative) Adenovirus (PCR) (NotDetected) B. pertussis DNA (PCR) (NotDetected) B.parapertussis DNA PCR (NotDetected) C. pneumoniae DNA (PCR) (NotDetected) Coronavirus OC43 (PCR) (NotDetected) Coronavirus HKU1 (PCR) (NotDetected) Coronavirus 229E (PCR) (NotDetected) SARS-CoV-2 (PCR) (NotDetected) Coronavirus NL63 (PCR) (NotDetected) Human Metapneumovir PCR (NotDetected) Influenza Type A (PCR) (NotDetected) Influenza Type B (PCR) (NotDetected) M. pneumoniae (PCR) (NotDetected) Parainfluenza 1 (PCR) (NotDetected) Parainfluenza 2 (PCR) (NotDetected) Parainfluenza 3 (PCR) (NotDetected) Parainfluenza 4 (PCR) (NotDetected) RSV (PCR) (NotDetected) Entero/Rhino (PCR) (NotDetected) 07/17/24 Range/Units 01:32 WBC 13.87 H (4.8-10.8) K/ul RBC 4.64 L (4.70-6.10) M/uL Hgb 13.9 L (14.0-18.0) g/dl Hct 40.6 L (42.0-52.0) % MCV 87.5 (80.0-100.0) fL MCH 30.0 (25.0-34.0) pg MCHC 34.2 (32.0-36.0) g/dL RDW Std Deviation 44.1 (36.4-46.3) fL RDW Coeff of Elise 13.8 (11.5-14.5) % Plt Count 206 (130-400) K/uL MPV 10.6 (9.4-12.4) fL Immature Gran % (Auto) 0.6 % Neut % (Auto) 91.5 % Lymph % (Auto) 3.3 % [place] % (Auto) 4.3 % Eos % (Auto) 0.2 % Baso % (Auto) 0.1 % Neut # (Auto) 12.68 H (1.40-6.50) K/uL Lymph # (Auto) 0.46 L (1.20-3.40) K/uL [place] # (Auto) 0.60 H (0.11-0.59) K/uL Eos # (Auto) 0.03 (0.00-0.50) K/uL Baso # (Auto) 0.02 (0.00-0.20) K/uL Immature Gran # (Auto) 0.08 (0.01-0.20) K/uL RBC Morphology Unremarkable PT 10.7 (9.0-12.0) Seconds INR 1.0 (0.9-1.1) APTT 25 (21-31) Seconds PTT Ratio 0.9 Sodium 136 (136-145) mmol/L Potassium 4.4 (3.5-5.1) mmol/L Chloride 104 (98-107) mmol/L Carbon Dioxide 23 (21-32) mmol/L Anion Gap 9 (3-11) BUN 31 H (6-23) mg/dl Creatinine 0.90 (0.6-1.4) mg/dl Est Cr Clr Drug Dosing 71.0 ml/min eGFR 87.96 BUN/Creatinine Ratio 34.4 H (10-20) Glucose 118 H (70-99(Fasting)) mg/dl Lactate (0.4-2.0) mmol/L Calcium 9.2 (8.6-10.3) mg/dl Magnesium 1.8 (1.7-2.4) mg/dl Total Bilirubin 0.5 (0.2-1.0) mg/dl Direct Bilirubin 0.1 (0-0.2) mg/dl AST 14 (13-39) U/L ALT 14 (7-52) U/L Alkaline Phosphatase 102 (34-104) U/L Troponin I High Sens 4.5 (0-20) pg/ml Total Protein 6.7 (6.0-8.3) gm/dl Albumin 4.2 (3.4-5.0) gm/dl Procalcitonin 0.17 (0-0.5) ng/ml Urine Color Urine Appearance (Clear) Urine pH (4.5-7.5) Ur Specific [place] (1.000-1.030) Urine Protein (Negative) Urine Glucose (UA) (Negative) Urine Ketones (Negative) Urine Blood (Negative) Urine Nitrite (Negative) Urine Bilirubin (Negative) Urine Urobilinogen (Negative) Ur Leukocyte Esterase (Negative) Adenovirus (PCR) Not Detected (NotDetected) B. pertussis DNA (PCR) Not Detected (NotDetected) B.parapertussis DNA PCR Not Detected (NotDetected) C. pneumoniae DNA (PCR) Not Detected (NotDetected) Coronavirus OC43 (PCR) Not Detected (NotDetected) Coronavirus HKU1 (PCR) Not Detected (NotDetected) Coronavirus 229E (PCR) Not Detected (NotDetected) SARS-CoV-2 (PCR) Not Detected (NotDetected) Coronavirus NL63 (PCR) Not Detected (NotDetected) Human Metapneumovir PCR Not Detected (NotDetected) Influenza Type A (PCR) Not Detected (NotDetected) Influenza Type B (PCR) Not Detected (NotDetected) M. pneumoniae (PCR) Not Detected (NotDetected) Parainfluenza 1 (PCR) Not Detected (NotDetected) Parainfluenza 2 (PCR) Not Detected (NotDetected) Parainfluenza 3 (PCR) Not Detected (NotDetected) Parainfluenza 4 (PCR) Not Detected (NotDetected) RSV (PCR) Not Detected (NotDetected) Entero/Rhino (PCR) Not Detected (NotDetected) Diagnostic Findings Chest X-Ray 07/17/24 01:34 EXAM: XR chest 1V portable CLINICAL HISTORY: Sepsis. TECHNIQUE: An X-ray image of the chest is obtained in AP projection. COMPARISON: No prior studies are available for comparison. FINDINGS: Pulmonary Parenchyma: Bilateral perihilar and bibasilar prominent bronchovascular markings with interstitial thickening. No pulmonary nodules are identified. No evidence of pleural effusion or pleural thickening. Heart and Mediastinum: Heart size and shape are normal. Prominent aortic knob with curvilinear calcifications. No mediastinal widening or masses. No hilar or mediastinal lymphadenopathy. Bony Thorax: Bony thorax appears intact without fractures or deformities. 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 Soft Tissues: Soft tissues overlying the chest wall are unremarkable. IMPRESSION: Bilateral perihilar and bibasilar prominent bronchovascular markings with interstitial thickening. Appearance may be attributed to chronic bronchitis. Electronically signed by Angel Valiente 07-17-2024 02:33 AM Supervising Physician Co-Signing Physician Notes Attending addendum: I have physically seen this patient, have supervised the medical residents activities, and agree with the H&P unless as otherwise noted. Assessment and Plan: The patient is a 78-year-old male with past medical history including COPD, diabetes mellitus type 2, peripheral neuropathy, hypothyroidism status post thyroidectomy, history of prostate cancer, history of right total knee arthroplasty, PAD, status post left hallux amputation, and BPH. He presents to the emergency department 1 day of fever, chills and rigors, with history of being treated for stomach flu about 2 weeks ago. #Chills/rigors/SIRS/bronchitis possible pneumonia/COPD exacerbation-- Chest x-ray with bilateral perihilar and bibasilar prominent bronchovascular markings with interstitial thickening, suggesting chronic bronchitis Patient's clinical symptomatology correlates Status post cefepime 2 g IV in ED and 3 L normal saline bolus from the ED Admit on ceftriaxone 2 g IV every 24 hours, and azithromycin to 500 mg p.o. for total 5 days Duonebs every 4 hours while awake and every 2 hours when necessary. Follow sputum Gram stain and cultures Follow blood cultures Nasal cannula oxygen, titrate to keep pulse ox around 92-94% Chronic medical conditions: Diabetes mellitus-Insulin as noted Peripheral neuropathy-continue gabapentin Hyperlipidemia-continue rosuvastatin and aspirin Hypothyroidism-continue levothyroxine usual dosing BPH with LUTS-continue tamsulosin Remaining orders and notations as noted (2) Fever Fever type: unspecified Qualified Code(s): R50.9 - Fever, unspecified
[2024-07-17] MEDS ORDERED: MELATONIN 3 MG TAB PO PRN (04:31)
[2024-07-17] MEDS ORDERED: GLUCOSE 10 TAB/TUBE PO PRN (04:36)
[2024-07-17] MEDS ORDERED: CARBOHYDRATES FOR HYPOGLYCEMIA PO PRN (04:36)
[2024-07-17] MEDS ORDERED: DEXTROSE 50% 50 ML SYRINGE IV PRN (04:36)
[2024-07-17] MEDS ORDERED: GLUCOSE 40% GEL 15 GM TUBE PO PRN (04:36)
[2024-07-17] MEDS ORDERED: GLUCAGON FOR INJ 1 MG VIAL SQ PRN (04:36)
--- NOTE | 2024-07-17 06:38 | Emergency Department Note ---
Impression & Plan Fever, Elevated lactic acid level ED Provider Note CHIEF COMPLAINT: fever HISTORY OF PRESENT ILLNESS: This 78 yo male patient PMH prostate CA, Hypothyroidism, diabetes, vertigo, COPD, ambulatory dysfunction, polyneuropathy, carotid aneurysm presents to the emergency department with complaints of a fever and bodyaches. He arrives by ambulance. He states he was watching a movie at approximately 1030 when he suddenly became chilled and record. He states he has pain "all over." he denies any specific symptoms such as headache, chest pain or shortness of breath. He denies any urinary symptoms. REVIEW OF SYSTEMS: A review of systems was performed with positives and pertinent negatives listed in the history of present illness. 10 systems were reviewed and are otherwise negative. ALLERGIES: see below MEDICATIONS: see below PMH: see below SOCIAL HISTORY: see below DDx: Viral syndrome such as COVID or influenza, pneumonia, UTI, metabolic abnormality, sepsis among others. PHYSICAL EXAM: Vital signs reviewed. noted to have a low-grade fever General: Well-appearing 78-year-old male, in no significant distress. HEENT: No scleral icterus, PERRLA, neck supple. moist mucous membranes Cardiovascular: Regular rate and rhythm, no extra sounds. Pulmonary: Clear to auscultation bilaterally, normal work of breathing. Abdomen: Soft, nontender, nondistended, positive bowel sounds. Musculoskeletal: Atraumatic, no peripheral edema. Neurologic: Patient awake alert and oriented x 3, speech is clear Skin: Warm, dry, no rash EMERGENCY DEPARTMENT COURSE/MDM: [] MONITORING: An order for cardiac monitoring was placed and the patient is noted to be in a normal sinus rhythm at 105 beats per minute. RADIOLOGY: chest x-ray: IMPRESSION: Bilateral perihilar and bibasilar prominent bronchovascular markings with interstitial thickening. Appearance may be attributed to chronic bronchitis. EKG:To my interpretation reveals a sinus tachycardia at 110 bpm. QTc of 424. No PVC, no PAC. Normal ST segments. DISPOSITION: admission Past Med/Surg History Problem List Elevated lactic acid level (Acute) Fever (Acute) Carotid aneurysm, right Idiopathic polyneuropathy Neck pain Ambulatory dysfunction (Acute) COPD (chronic obstructive pulmonary disease) Vertigo (Acute) Diabetes Hypothyroidism, postablative Prostate cancer (Chronic 10/01/20) Medical History Headache Hx of thyroid cancer Hypercholesterolemia Elevated PSA PVD (peripheral vascular disease) (05/08/13) Surgical History History of thyroidectomy (~2010) Left H/O extremity bypass graft 2010 (Left Leg - [place]), 2012 (Use graft from right into left - Dr. Ely) H/O total knee replacement (~2014) Right H/O amputation of lesser toe (~2009) Family History Father , Passed age 71 of metastatic prostate cancer Diabetes Mother , Passed age 88 of natural causes (alzheimers) No problems noted. Brother Prostate cancer, Onset Age: 63 Hx Prostatectomy & Radiation Brother No problems noted. Brother No problems noted. Brother No problems noted. Brother No problems noted. Sister No problems noted. Sister No problems noted. Daughter No problems noted. Son No problems noted. Son No problems noted. Social History Smoking Status: Never smoker packs per day: 2; Cigarettes Per Day: 2.5 PPD per 60 years; Second Hand Exposure: No; Do You Dip or Chew Tobacco: No; Hx Alcohol Use: Yes Alcohol type: beer Alcohol Intake Frequency: Monthly or Less Hx Substance Use: No Preferred Language: Arabic Visual Impairment: Limited Hearing Ability: Normal Pickle Pumper Required: No Beliefs That Will Affect Care: None marital status: / Current Living Situation: Alone Current Living Situation Comment: Lives at home alone current occupational status: retired current occupation: Retired [employer] age 56 Feels Safe at Home: Yes Diet: diabetic caffeine: Yes (2 cups of coffee/day ) during the past year weight has: remained stable Dental Care, Regularly: No Assistive Devices: Glasses Allergies Allergies Allergy/AdvReac Type Severity Reaction Status Date / Time No Known Allergies Allergy Verified 03/09/24 08:56 Home Meds Home Medications Medication Instructions Recorded Confirmed multivitamin (Daily Multi-Vitamin 1 tab PO DAILY 05/10/19 03/09/24 tablet) omega-3 fatty acids 1,000 mg 1,000 mg PO DAILY 05/10/19 03/09/24 capsule calcium carbonate (Calcium 600) 600 mg PO BID 02/26/20 03/09/24 cinnamon bark 500 mg capsule 1,000 mg PO DAILY 02/26/20 03/09/24 (Cinnamon) metformin 500 mg tablet 1,000 mg PO DAILY 02/26/20 03/09/24 rosuvastatin 5 mg tablet 5 mg PO HS 02/26/20 03/09/24 fluticasone propionate 50 1 spray intranasal BID PRN 04/07/20 03/09/24 mcg/actuation nasal Shortness Of Breath spray,suspension aspirin 81 mg tablet,delayed 81 mg PO DAILY 07/06/21 03/09/24 release ipratropium 0.5 mg-albuterol 3 mg 3 ml inhalation Q6H PRN Shortness 07/06/21 03/09/24 (2.5 mg base)/3 mL nebulization Of Breath soln gabapentin 600 mg tablet 600 mg PO DAILY 03/11/23 03/09/24 ibuprofen 200 mg tablet (Advil) 200 mg PO Q6H PRN 03/11/23 03/09/24 Previous Rx's Medication Instructions Recorded meclizine 25 mg tablet 25 mg PO TID PRN dizziness #10 tabs 07/08/21 tamsulosin 0.4 mg capsule 0.4 mg PO DAILY #90 caps 07/18/23 levothyroxine 150 mcg tablet See Rx Instructions PO .COMPLEX 11/04/23 #45 tabs levothyroxine 175 mcg tablet See Rx Instructions PO .COMPLEX 11/04/23 #45 tabs Results & Data (ED) Vital Signs Vital Signs - 24 hr 07/17/24 01:17 07/17/24 01:33 07/17/24 01:37 Temperature 38.5 C H Temperature Source Oral Pulse Rate 100 H 108 H Pulse Rate [Radial] Respiratory Rate 18 Respiratory Effort / Characteristics Non-Labored Spontaneous Respiratory Depth Normal Respiratory Pattern Regular Blood Pressure 122/72 Blood Pressure [Right Arm] Blood Pressure Mean 88 Blood Pressure Mean [Right Arm] Pulse Oximetry 95 98 Oxygen Delivery Method Room Air Room Air Sepsis Recent Fever Within 48 Hours Yes Sepsis New/Unexplained Change in Mental Status No Sepsis Action Taken by Nursing No Action Required 07/17/24 02:04 07/17/24 02:30 07/17/24 03:36 Temperature 37.2 C Temperature Source Oral Pulse Rate 86 Pulse Rate [Radial] 99 H 105 H Respiratory Rate 18 18 18 Respiratory Effort / Characteristics Non-Labored Spontaneous Non-Labored Spontaneous Respiratory Depth Normal Normal Respiratory Pattern Regular Regular Blood Pressure 109/60 Blood Pressure [Right Arm] 122/79 Blood Pressure Mean 76 Blood Pressure Mean [Right Arm] 93 Pulse Oximetry 93 93 94 Oxygen Delivery Method Room Air Room Air Sepsis Recent Fever Within 48 Hours Sepsis New/Unexplained Change in Mental Status Sepsis Action Taken by Nursing 07/17/24 04:06 07/17/24 04:33 07/17/24 05:00 Temperature Temperature Source Pulse Rate 91 H 85 91 H Pulse Rate [Radial] Respiratory Rate 16 20 20 Respiratory Effort / Characteristics Respiratory Depth Respiratory Pattern Blood Pressure 128/66 151/71 H 135/72 Blood Pressure [Right Arm] Blood Pressure Mean 86 97 93 Blood Pressure Mean [Right Arm] Pulse Oximetry 95 94 95 Oxygen Delivery Method Sepsis Recent Fever Within 48 Hours Sepsis New/Unexplained Change in Mental Status Sepsis Action Taken by Nursing 07/17/24 05:12 07/17/24 05:24 07/17/24 05:57 Temperature Temperature Source Pulse Rate 82 84 78 Pulse Rate [Radial] Respiratory Rate 18 17 17 Respiratory Effort / Characteristics Respiratory Depth Respiratory Pattern Blood Pressure 135/72 123/60 123/60 Blood Pressure [Right Arm] Blood Pressure Mean 93 81 81 Blood Pressure Mean [Right Arm] Pulse Oximetry 93 95 93 Oxygen Delivery Method Sepsis Recent Fever Within 48 Hours Sepsis New/Unexplained Change in Mental Status Sepsis Action Taken by Nursing 07/17/24 06:21 Temperature Temperature Source Pulse Rate 79 Pulse Rate [Radial] Respiratory Rate Respiratory Effort / Characteristics Respiratory Depth Respiratory Pattern Blood Pressure Blood Pressure [Right Arm] Blood Pressure Mean Blood Pressure Mean [Right Arm] Pulse Oximetry Oxygen Delivery Method Sepsis Recent Fever Within 48 Hours Sepsis New/Unexplained Change in Mental Status Sepsis Action Taken by Shelter Medications Current Medication List: was personally reviewed by me Laboratory Data Attestation: I reviewed the patient's lab results. 07/17/24 01:32 07/17/24 01:32 Lab Results 07/17/24 07/17/24 07/17/24 Range/Units 01:32 02:18 03:05 WBC 13.87 H (4.8-10.8) K/ul RBC 4.64 L (4.70-6.10) M/uL Hgb 13.9 L (14.0-18.0) g/dl Hct 40.6 L (42.0-52.0) % MCV 87.5 (80.0-100.0) fL MCH 30.0 (25.0-34.0) pg MCHC 34.2 (32.0-36.0) g/dL RDW Std Deviation 44.1 (36.4-46.3) fL RDW Coeff of Elise 13.8 (11.5-14.5) % Plt Count 206 (130-400) K/uL MPV 10.6 (9.4-12.4) fL Immature Gran % (Auto) 0.6 % Neut % (Auto) 91.5 % Lymph % (Auto) 3.3 % [place] % (Auto) 4.3 % Eos % (Auto) 0.2 % Baso % (Auto) 0.1 % Neut # (Auto) 12.68 H (1.40-6.50) K/uL Lymph # (Auto) 0.46 L (1.20-3.40) K/uL [place] # (Auto) 0.60 H (0.11-0.59) K/uL Eos # (Auto) 0.03 (0.00-0.50) K/uL Baso # (Auto) 0.02 (0.00-0.20) K/uL Immature Gran # (Auto) 0.08 (0.01-0.20) K/uL RBC Morphology Unremarkable PT 10.7 (9.0-12.0) Seconds INR 1.0 (0.9-1.1) APTT 25 (21-31) Seconds PTT Ratio 0.9 Sodium 136 (136-145) mmol/L Potassium 4.4 (3.5-5.1) mmol/L Chloride 104 (98-107) mmol/L Carbon Dioxide 23 (21-32) mmol/L Anion Gap 9 (3-11) BUN 31 H (6-23) mg/dl Creatinine 0.90 (0.6-1.4) mg/dl Est Cr Clr Drug Dosing 71.0 ml/min eGFR 87.96 BUN/Creatinine Ratio 34.4 H (10-20) Glucose 118 H (70-99(Fasting)) mg/dl Lactate 2.2 H* (0.4-2.0) mmol/L Calcium 9.2 (8.6-10.3) mg/dl Magnesium 1.8 (1.7-2.4) mg/dl Total Bilirubin 0.5 (0.2-1.0) mg/dl Direct Bilirubin 0.1 (0-0.2) mg/dl AST 14 (13-39) U/L ALT 14 (7-52) U/L Alkaline Phosphatase 102 (34-104) U/L Troponin I High Sens 4.5 (0-20) pg/ml Total Protein 6.7 (6.0-8.3) gm/dl Albumin 4.2 (3.4-5.0) gm/dl Procalcitonin 0.17 (0-0.5) ng/ml Urine Color Yellow Urine Appearance Clear (Clear) Urine pH 5.0 (4.5-7.5) Ur Specific [place] 1.026 (1.000-1.030) Urine Protein Negative (Negative) Urine Glucose (UA) Negative (Negative) Urine Ketones Trace H (Negative) Urine Blood Negative (Negative) Urine Nitrite Negative (Negative) Urine Bilirubin Negative (Negative) Urine Urobilinogen Negative (Negative) Ur Leukocyte Esterase Negative (Negative) Adenovirus (PCR) Not Detected (NotDetected) B. pertussis DNA (PCR) Not Detected (NotDetected) B.parapertussis DNA PCR Not Detected (NotDetected) C. pneumoniae DNA (PCR) Not Detected (NotDetected) Coronavirus OC43 (PCR) Not Detected (NotDetected) Coronavirus HKU1 (PCR) Not Detected (NotDetected) Coronavirus 229E (PCR) Not Detected (NotDetected) SARS-CoV-2 (PCR) Not Detected (NotDetected) Coronavirus NL63 (PCR) Not Detected (NotDetected) Human Metapneumovir PCR Not Detected (NotDetected) Influenza Type A (PCR) Not Detected (NotDetected) Influenza Type B (PCR) Not Detected (NotDetected) M. pneumoniae (PCR) Not Detected (NotDetected) Parainfluenza 1 (PCR) Not Detected (NotDetected) Parainfluenza 2 (PCR) Not Detected (NotDetected) Parainfluenza 3 (PCR) Not Detected (NotDetected) Parainfluenza 4 (PCR) Not Detected (NotDetected) RSV (PCR) Not Detected (NotDetected) Entero/Rhino (PCR) Not Detected (NotDetected) 07/17/24 Range/Units 04:37 WBC (4.8-10.8) K/ul RBC (4.70-6.10) M/uL Hgb (14.0-18.0) g/dl Hct (42.0-52.0) % MCV (80.0-100.0) fL MCH (25.0-34.0) pg MCHC (32.0-36.0) g/dL RDW Std Deviation (36.4-46.3) fL RDW Coeff of Elise (11.5-14.5) % Plt Count (130-400) K/uL MPV (9.4-12.4) fL Immature Gran % (Auto) % Neut % (Auto) % Lymph % (Auto) % [place] % (Auto) % Eos % (Auto) % Baso % (Auto) % Neut # (Auto) (1.40-6.50) K/uL Lymph # (Auto) (1.20-3.40) K/uL [place] # (Auto) (0.11-0.59) K/uL Eos # (Auto) (0.00-0.50) K/uL Baso # (Auto) (0.00-0.20) K/uL Immature Gran # (Auto) (0.01-0.20) K/uL RBC Morphology PT (9.0-12.0) Seconds INR (0.9-1.1) APTT (21-31) Seconds PTT Ratio Sodium (136-145) mmol/L Potassium (3.5-5.1) mmol/L Chloride (98-107) mmol/L Carbon Dioxide (21-32) mmol/L Anion Gap (3-11) BUN (6-23) mg/dl Creatinine (0.6-1.4) mg/dl Est Cr Clr Drug Dosing ml/min eGFR BUN/Creatinine Ratio (10-20) Glucose (70-99(Fasting)) mg/dl Lactate 1.3 (0.4-2.0) mmol/L Calcium (8.6-10.3) mg/dl Magnesium (1.7-2.4) mg/dl Total Bilirubin (0.2-1.0) mg/dl Direct Bilirubin (0-0.2) mg/dl AST (13-39) U/L ALT (7-52) U/L Alkaline Phosphatase (34-104) U/L Troponin I High Sens (0-20) pg/ml Total Protein (6.0-8.3) gm/dl Albumin (3.4-5.0) gm/dl Procalcitonin (0-0.5) ng/ml Urine Color Urine Appearance (Clear) Urine pH (4.5-7.5) Ur Specific [place] (1.000-1.030) Urine Protein (Negative) Urine Glucose (UA) (Negative) Urine Ketones (Negative) Urine Blood (Negative) Urine Nitrite (Negative) Urine Bilirubin (Negative) Urine Urobilinogen (Negative) Ur Leukocyte Esterase (Negative) Adenovirus (PCR) (NotDetected) B. pertussis DNA (PCR) (NotDetected) B.parapertussis DNA PCR (NotDetected) C. pneumoniae DNA (PCR) (NotDetected) Coronavirus OC43 (PCR) (NotDetected) Coronavirus HKU1 (PCR) (NotDetected) Coronavirus 229E (PCR) (NotDetected) SARS-CoV-2 (PCR) (NotDetected) Coronavirus NL63 (PCR) (NotDetected) Human Metapneumovir PCR (NotDetected) Influenza Type A (PCR) (NotDetected) Influenza Type B (PCR) (NotDetected) M. pneumoniae (PCR) (NotDetected) Parainfluenza 1 (PCR) (NotDetected) Parainfluenza 2 (PCR) (NotDetected) Parainfluenza 3 (PCR) (NotDetected) Parainfluenza 4 (PCR) (NotDetected) RSV (PCR) (NotDetected) Entero/Rhino (PCR) (NotDetected) Administered Medications Discontinued Medications Sodium Chloride (Nss) 1,000 mls @ 999 mls/hr IV .Q1H1M JAVIER Stop: 07/17/24 02:45 Last Infusion: 07/17/24 03:58 Dose: Infused Documented By: Admin: 07/17/24 01:47 Dose: 999 mls/hr Documented By: DILLON Acetaminophen (Ofirmev) 1,000 mg in 100 mls @ 400 mls/hr IV NOW STA Stop: 07/17/24 01:48 Last Infusion: 07/17/24 02:06 Dose: Infused Documented By: Admin: 07/17/24 01:47 Dose: 400 mls/hr Documented By: DILOLN Cefepime HCl (Maxipime 2000mg) 2,000 mg in 20 mls @ 5 mls/min IV NOW STA; Protocol Stop: 07/17/24 02:30 Last Admin: 07/17/24 02:34 Dose: 5 mls/min Documented By: DILLON Sodium Chloride (Nss) 1,000 mls @ 999 mls/hr IV .Q1H1M ONE Stop: 07/17/24 03:41 Last Infusion: 07/17/24 04:42 Dose: Infused Documented By: Admin: 07/17/24 03:07 Dose: 999 mls/hr Documented By: JANAE Sodium Chloride (Nss) 500 mls @ 999 mls/hr IV .Q31M ONE Stop: 07/17/24 03:11 Last Infusion: 07/17/24 04:42 Dose: Infused Documented By: Admin: 07/17/24 03:07 Dose: 999 mls/hr Documented By: JANAE Azithromycin (Zithromax) 500 mg in 255 mls @ 127.5 mls/hr IV ONE STA Stop: 07/17/24 05:29 Last Infusion: 07/17/24 06:00 Dose: Infused Documented By: Admin: 07/17/24 03:55 Dose: 127.5 mls/hr Documented By: JANAE Imaging Data Radiologist's Impression: Chest X-Ray 07/17/24 01:34 EXAM: XR chest 1V portable CLINICAL HISTORY: Sepsis. TECHNIQUE: An X-ray image of the chest is obtained in AP projection. COMPARISON: No prior studies are available for comparison. FINDINGS: Pulmonary Parenchyma: Bilateral perihilar and bibasilar prominent bronchovascular markings with interstitial thickening. No pulmonary nodules are identified. No evidence of pleural effusion or pleural thickening. Heart and Mediastinum: Heart size and shape are normal. Prominent aortic knob with curvilinear calcifications. No mediastinal widening or masses. No hilar or mediastinal lymphadenopathy. Bony Thorax: Bony thorax appears intact without fractures or deformities. 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 Soft Tissues: Soft tissues overlying the chest wall are unremarkable. IMPRESSION: Bilateral perihilar and bibasilar prominent bronchovascular markings with interstitial thickening. Appearance may be attributed to chronic bronchitis. Electronically signed by Angel Valiente 07-17-2024 02:33 AM Discharge Plan Visit Data Chief Complaint: Illness Stated Complaint: ILLNESS ED Provider: Ju Blackburn Discharge Problem: Fever, Elevated lactic acid level Patient Disposition: Admitted As Inpatient Forms Stand Alone Forms: [facility] Prescriptions Prescriptions: No Action ibuprofen [Advil] 200 mg tablet 200 mg PO Q6H PRN gabapentin 600 mg tablet 600 mg PO DAILY metformin 500 mg tablet 1,000 mg PO DAILY cinnamon bark [Cinnamon] 500 mg capsule 1,000 mg PO DAILY calcium carbonate [Calcium 600] 600 mg calcium (1,500 mg) tablet 600 mg PO BID fluticasone propionate 50 mcg/actuation spray,suspension 1 spray intranasal BID PRN (Reason: Shortness Of Breath) Rx Instructions: administer into each nostril tamsulosin 0.4 mg capsule 0.4 mg PO DAILY Qty: 90 3RF Rx Instructions: Take after supper levothyroxine 150 mcg tablet See Rx Instructions PO .COMPLEX Qty: 45 3RF Rx Instructions: take 1 tab by mouth every other day alternating with 175mcg tablet PO ; levothyroxine 175 mcg tablet See Rx Instructions PO .COMPLEX Qty: 45 3RF Rx Instructions: take 1 tab by mouth every other day alternating with 150mcg tab PO ; multivitamin [Daily Multi-Vitamin] tablet 1 tab PO DAILY omega-3 fatty acids 1,000 mg capsule 1,000 mg PO DAILY rosuvastatin 5 mg tablet 5 mg PO HS ipratropium-albuterol 0.5 mg-3 mg(2.5 mg base)/3 mL Solution For Nebulization 3 ml INHALATION Q6H PRN (Reason: Shortness Of Breath) aspirin 81 mg Tablet,Delayed Release (Dr/Ec) 81 mg PO DAILY meclizine 25 mg Tablet 25 mg PO TID PRN (Reason: dizziness) Qty: 10 0RF Referrals Referrals: PCP,NO [Primary Care Provider] -
[2024-07-17] MEDS: ALBUT/IPRATROP 3MG/0.5MG NEB 3 ML VIAL NEB SCH (06:50)
[2024-07-17] MEDS: cefTRIAXone SODIUM 2,000 MG/50 ML BAG IV SCH (09:15)
[2024-07-17] MEDS: ENOXAPARIN INJ 40 MG/0.4 ML SYR SQ SCH (09:15)
[2024-07-17] MEDS: TAMSULOSIN HCL 0.4 MG CAP PO SCH (09:15)
[2024-07-17] MEDS: ROSUVASTATIN CALCIUM 5 MG TAB PO SCH (09:15)
[2024-07-17] MEDS: LANTUS PER UNIT CHARGE SQ SCH (09:48)
[2024-07-17] MEDS: INSULIN ASPART PER UNIT CHARGE SC SCH (09:48)
[2024-07-17] MEDS: ASPIRIN 81 MG ECTAB PO SCH (10:31)
[2024-07-17] MEDS: LEVOTHYROXINE SODIUM 150 MCG TABLET PO SCH (10:31)
[2024-07-17] MEDS: ACETAMINOPHEN 325 MG TAB PO PRN (15:25)
[2024-07-17] MEDS: POLYETHYLENE (MIRALAX) 17 GM PACK PO PRN (20:06)
[2024-07-17] MEDS: GABAPENTIN 600 MG TAB PO SCH (20:09)
--- NOTE | 2024-07-17 22:20 | Electrocardiogram Report ---
Test Reason : Blood Pressure : */* mmHG Vent. Rate : 110 BPM Atrial Rate : 110 BPM P-R Int : 166 ms QRS Dur : 78 ms QT Int : 314 ms P-R-T Axes : 49 -6 31 degrees QTcB Int : 424 ms Sinus tachycardia Otherwise normal ECG When compared with ECG of 06-Jul-2021 09:06, Vent. rate has increased by 36 bpm Confirmed by Reza Smith ([id number]) on 07/17/2024 10:20:00 PM Referred By: REFERRED SELF Confirmed By: Reza Smith
--- NOTE | 2024-07-18 03:14 | Billing Data ---
Date of Service July 18, 2024 Coding Level of Care Code 68619 INT INP/OBS CARE
[2024-07-18] MEDS: LEVOTHYROXINE SODIUM 175 MCG TABLET PO SCH (06:02)
[2024-07-18 07:19] VITALS: O2SAT 94
[2024-07-18 07:36] VITALS: BP 118/64; PULSE 62; RESP 18; TEMP 98.1
[2024-07-18 07:52] LABS: Hematocrit (blood only) 36.8 % (42.0-52.0); Hemoglobin 12.7 g/dl (14.0-18.0); Mean Corpuscular Hemoglobin 30.5 pg (25.0-34.0); Mean Corpuscular Hgb Conc 34.5 g/dL (32.0-36.0); Mean Corpuscular Volume 88.2 fL (80.0-100.0); Mean Platelet Volume 11.3 fL (9.4-12.4); Platelet Count 175 K/uL (130-400); RDW Coefficient of Variation 14.4 % (11.5-14.5); RDW Standard Deviation 46.2 fL (36.4-46.3); Red Blood Count 4.17 M/uL (4.70-6.10); White Blood Count 6.56 K/ul (4.8-10.8)
[2024-07-18 08:13] LABS: Calcium 8.5 mg/dl (8.6-10.3); Potassium 4.2 mmol/L (3.5-5.1)
--- NOTE | 2024-07-18 10:05 | Discharge Summary ---
Discharge Summary Date of Service July 18, 2024 Principal Dx & Hospital Course #1 = Principal Diagnosis (1) Elevated lactic acid level: (2) Fever: (3) COPD (chronic obstructive pulmonary disease): (4) Diabetes: (5) Hypothyroidism, postablative: Plan Patient is a 78 yo M w/ a PMHx of COPD, T2DM, peripheral neuropathy, hypothyroidism (s/p thyroidectomy), Hx of prostate cancer, Hx of lisha right knee replacement, PAD, s/p l. hallus amputation, BPH presenting today w/ 1-day Hx of tactile fever, chills, and rigors. 1) Chills, rigors/SIRS Criteria/potential pnemonia - pt w/ chills, rigors at home; tactile fever; HR, 108; T, 38.5 C; WBC, 13.9 upon admission - unknown source of infection but most likely pulmonary; lactate, 2.2; - procal, 0.17; Resp Bio[employer], hu-negative; urine analysis, unremarkable - CXR: Bilateral perihilar and bibasilar prominent bronchovascular markings with interstitial thickening. Appearance may be attributed to chronic bronchitis - 1 dose Cefepime given in ED; 3 L NSS in ED - Ceftriaxone, 2g, IV, q24 hrs - Blood cultures, pending - symptoms resolved on day of discharge, no fevers, cultures negative. 2) COPD exacerbation/COPD - no increased sputum, no change of color of sputum, mildly dyspneic - wheezing of r. posterior lungs - azithromycin, 250 mg, PO, daily for 4 more days - Duonebs, BIDR, 3mg/0.5 mg, 3 mL Chronic Conditions #T2DM/peripheral neuropathy - Basal-bolus insulin ordered - gabapentin #Cardiac health - aspirin, Crestor #hypothyroidism - levothyroxine, 150 mcg (every other day); 175 mcg, (every other day) #BPH - tamsulosin Code status: Full code Disposition: Med-Surg FENGI: [id number] Consistent VTE Prophylaxis: Lovenox, 40 mg, subQ, daily Admission HPI Per Admitting Provider Patient is a 78 yo M w/ a PMHx of COPD, T2DM, peripheral neuropathy, hypothyroidism (s/p thyroidectomy), Hx of prostate cancer, Hx of lisha right knee replacement, PAD, s/p l. hallus amputation, presenting today w/ 1-day Hx of tactile fever, chills, and rigors. Patient currently lives independently by himself and called the medics when he realized he wasn't feeling well. Patient denies increased urinary urgency/frequency, dysuria. Denies CP, palpitations. Denies N/V, AP. Last had a bout of diarrhea 1-2 wks ago when he was Dx'ed with a case of the stomach flu. Patient denies any acute dyspnea, cough, wheezing. Patient does endorse some muscle aches to go along with the chills, rigors, tactile fever but didn't feel disoriented or confused. Discharge Exam GENERAL APPEARANCE NAD, activity normal for age, well developed/ well nourished, no cyanosis, pallor, or diaphoresis. EYES lids/conjunctiva normal. EARS/NOSE/THROAT Mucous membranes moist, nares normal, lips/teeth normal uvula midline without oral pharyngeal erythema, exudate or swelling TMs normal bilaterally. No lymphangitis/lymphedema. HEAD/NECK normocephalic atraumatic, no facial trauma, neck is supple. RESPIRATORY respiratory effort normal, speaks in full sentences, no tripod position, no accessory muscle use. Lungs clear to auscultation without rhonchi, wheezes, rales CARDIAC Regular rate and rhythm, no edema. ABDOMINAL Soft, ND/NT. No evidence of fluid wave. No pulsatile masses on exam, rebound tenderness, Wahl sign or pain over Mcburney's point. MUSCLES/EXTREMITIES No abnormal range of motion, no swelling. SKIN Warm, pink and dry. No rashes, dermatoses, petechiae or lesions. NEUROLOGICAL Speech is clear and appropriate. Normal level of consciousness. Gait and coordination are normal. 5/5 strength in all extremities. PSYCH Normal mood and affect. Judgement/competence is appropriate Discharge Plan Discharge Items Patient Disposition: Home - Self-Care Reason For Visit: CHILLS AND RIGORS Discharge Diagnosis: bronchitis Activity: Resume your previous activity Non-emergency contact: Primary Care Provider Call non-emergency contact if: you have any medication questions Follow-up/Referrals: PCP,NO [Primary Care Provider] - Diet: Regular Addtl Attending Provider Instructions: Follow up with PMD in 2 weeks Pending Studies at Discharge: No Stand-Alone Forms: My [employer], Smoking Cessation Medications and DC Order Prescriptions: New cefdinir 300 mg capsule 300 mg PO BID 5 Days Qty: 10 0RF Continued ibuprofen [Advil] 200 mg tablet 200 mg PO Q6H PRN (Reason: Pain) Rx Instructions: Unable to verify OTC meds at this date/time. gabapentin 600 mg tablet 600 mg PO DAILY Rx Instructions: Last filled x90 day supply metformin 500 mg tablet 500 mg PO BID cinnamon bark [Cinnamon] 500 mg capsule 1,000 mg PO DAILY Rx Instructions: Unable to verify OTC meds at this date/time. calcium carbonate [Calcium 600] 600 mg calcium (1,500 mg) tablet 600 mg PO BID Rx Instructions: Unable to verify OTC meds at this date/time. fluticasone propionate 50 mcg/actuation spray,suspension 1 spray intranasal BID PRN (Reason: Shortness Of Breath) Rx Instructions: administer into each nostril tamsulosin 0.4 mg capsule 0.4 mg PO DAILY Qty: 90 3RF Rx Instructions: Take after supper levothyroxine 150 mcg tablet See Rx Instructions PO .COMPLEX Qty: 45 3RF Rx Instructions: take 1 tab by mouth every other day alternating with 175mcg tablet PO ; levothyroxine 175 mcg tablet See Rx Instructions PO .COMPLEX Qty: 45 3RF Rx Instructions: take 1 tab by mouth every other day alternating with 150mcg tab PO ; multivitamin [Daily Multi-Vitamin] tablet 1 tab PO DAILY Rx Instructions: Unable to verify OTC meds at this date/time. omega-3 fatty acids 1,000 mg capsule 1,000 mg PO DAILY Rx Instructions: Unable to verify OTC meds at this date/time. rosuvastatin 5 mg tablet 5 mg PO HS ipratropium-albuterol 0.5 mg-3 mg(2.5 mg base)/3 mL Solution For Nebulization 3 ml INHALATION Q6H PRN (Reason: Shortness Of Breath) Rx Instructions: Not on file w/ pharmacy. aspirin 81 mg Tablet,Delayed Release (Dr/Ec) 81 mg PO DAILY Rx Instructions: Unable to verify OTC meds at this date/time. meclizine 25 mg Tablet 25 mg PO TID PRN (Reason: dizziness) Qty: 10 0RF Discharge Orders: Discharge Order (Routine); Ordered 07/18/24 Ordered By: Fredi Briceño Admission Data Admit Date/Time: 07/17/24 04:35 Attending Provider: Fredi Briceño Admit Provider: Noé De La Paz Primary Care Provider: PCP,NO Other Providers: [facility] Stay Data Consultations 07/17/24 03:27 ED Decision to Admit Stat Pending Results Patient Have Any Pending Studies at Discharge: No Discharge Instructions Given to Patient (Per Discharging Provider) Follow up with PMD in 2 weeks Total Time Total Time Spent Total Time Spent (In Minutes): 50 Coding Level of Care Code 29026 INP/OBS DISCH >30 MIN Diagnoses Elevated lactic acid level R79.89 Fever R50.9 Fever type: unspecified COPD (chronic obstructive pulmonary disease) J44.9 Diabetes E11.9 Hypothyroidism, postablative E89.0
[2024-07-18 13:05] LABS: A calco-baum cmplx NotReported Not Detected (NotDetected); Bact fragilis Not Reported Not Detected (NotDetected); Blood Culture Id Panel See PCR Comment (NotDetected); C auris Not Reported Not Detected (NotDetected); Calbicans Not Reported Not Detected (NotDetected); Candida glabrata Not Reported Not Detected (NotDetected); Candida krusei Not Reported Not Detected (NotDetected); Cneoformans/gatti Not Reported Not Detected (NotDetected); Cparapsilosis Not Reported Not Detected (NotDetected); E cloacae compx Not Reported Not Detected (NotDetected); Efaecalis Not Reported Not Detected (NotDetected); Efaecium Not Reported Not Detected (NotDetected); Enterobacterales Not Reported Not Detected (NotDetected); Escherichia coli Not Reported Not Detected (NotDetected); H influenzae Not Reported Not Detected (NotDetected); K aerogenes Not Reported Not Detected (NotDetected); Koxytoca Not Reported Not Detected (NotDetected); Kpneumoniae grp Not Reported Not Detected (NotDetected); Lmonocyt Not Reported Not Detected (NotDetected); N meningitidis Not Reported Not Detected (NotDetected); P aeruginosa Not Reported Not Detected (NotDetected); Proteus spp Not Reported Not Detected (NotDetected); Salmonella spp Not Reported Not Detected (NotDetected); Staph lugdunensis Not Reported Not Detected (NotDetected); Staph spp. Not Reported Not Detected (NotDetected); Staphaureus Not Reported Not Detected (NotDetected); Staphepi Not Reported Not Detected (NotDetected); Stenmaltophilia Not Reported Not Detected (NotDetected); Strep agal(GrpB) Not Reported Not Detected (NotDetected); Strep pneum Not Reported Not Detected (NotDetected); Strep pyog (GrpA) Not Reported Not Detected (NotDetected); Strep spp Not Reported DETECTED (NotDetected)
[2024-07-18 13:17] LABS: Streptococcus spp DETECTED (NotDetected)
== END 2024-07-18 12:01 | disposition home or self-care (01) ==
LOC: SUATTDRO → 3E 01:15 → ED 01:15 → 3E 08:08

== ENCOUNTER 2024-08-17 21:03 | Observation (INO) ==
[2024-08-17] MEDS: SODIUM CHLORIDE 0.9% 500 ML IV ONE (21:33)
[2024-08-17 21:44] LABS: iSTAT Creatinine 0.7 mg/dl (0.6-1.3); iSTAT Hemoglobin 13.6 g/dl (14.0-18.0); iSTAT Ionized Calcium 1.16 mmol/l (1.12-1.32); iSTAT Potassium 3.6 mmol/L (3.3-5.0)
[2024-08-17 22:20] LABS: Alanine Aminotransferase 19 U/L (7-52); Albumin Globulin Ratio 1.7 (0.9-2); Albumin Level 4.3 gm/dl (3.4-5.0); Alkaline Phosphatase 105 U/L (34-104); Anion Gap 6 (3-11); BUN Creatinine Ratio 30.3 (10-20); Bilirubin,Total 0.3 mg/dl (0.2-1.0); Blood Urea Nitrogen 23 mg/dl (6-23); Calcium 8.9 mg/dl (8.6-10.3); Carbon Dioxide 29 mmol/L (21-32); Chloride 109 mmol/L (98-107); Creatinine Clr Calc Pharmacy 89.1 ml/min; Globulin 2.5 gm/dl (2.5-4.0); Glucose 133 mg/dl (70-99(Fasting)); Lipase 49 U/L (11-82); Phosphorus 3.4 mg/dl (2.5-4.9); Sodium 144 mmol/L (136-145); Total Protein 6.8 gm/dl (6.0-8.3)
--- NOTE | 2024-08-17 22:20 | Emergency Department Note ---
Impression & Plan Stroke-like symptoms, TGA (transient global amnesia), Hypertension ED Provider Note NAME: CARLITO GAMINO AGE: 78 SEX: M : 1945 ARRIVES VIA: Walk-In INFORMANT: Patient ED PROVIDER(S): Ike Beltran MD CHIEF COMPLAINT: Confusion PLAN: Disposition: Admit MEDICAL DECISION MAKING: The patient is a pleasant 78-year-old gentleman with a past medical history of COPD, idiopathic polyneuropathy, vertigo, prostate cancer, hyperlipidemia, hypothyroidism who presents to the emergency department via walk-in accompanied by his neighbor and friend for evaluation of confusion which was noted by family this evening when the patient was on the phone with his daughter and he was confused as to what day it was and had no recollection of what had occurred today. He recalls in great detail events from yesterday when he had taken care of his 9-year-old granddaughter and dropped her off at the school where the patient's daughter works. However, the patient does not have any recollection of events today and did not interact with anyone until the evening when he spoke with his daughter over the phone. Thus, patient's last known well appears to be yesterday sometime. Patient denies any room spinning or lightheadedness. He denies any headache. He denies any extremity weakness. He denies any cough congestion, chest pain, shortness of breath, GI or symptoms. On evaluation patient is no acute distress, afebrile with heart in the 100s and blood pressure 170/60s and vital signs otherwise stable. Appears clinically dry. He does exhibit amnesia to events from today but again has detailed memory of yesterday. Otherwise cranial nerves II-XII grossly intact. 5/5 strength and SILT x 4 extremities. Cerebellar function intact including [id number], alternating palms, [id number]-vv-[id number]. EKG without overt acute ischemia. CXR negative for acute cardiopulmonary process per my personal preliminary review/interpretation. WBC within normal limits. H/H similar to prior. Platelets within normal limits. Chemistry without metabolic acidosis. BUNs/creatinine consistent with patient's clinically dry appearance. Electrolytes LFTs otherwise unremarkable. Has to be troponin is undetectable. TSH 0.23, with free T4 within normal limits. UA without evidence of infection. Urine drug screen was negative. Medical alcohol was undetectable. CT of the head and CT of the head and neck were performed were negative for ICH, ischemia or severe narrowing occlusion of large vessels. Given the patient's symptoms, which are consistent with transient global amnesia patient and close friend at the bedside agree with plan for admission for further management. Case was d/[place] Dr. [place] [facility] [place] who will evaluate the patient for admission. Further management per admitting team. Triage Nursing notes reviewed and agree them. Prior/external medical records reviewed Vital Signs: reviewed Differential diagnosis: Infection, dehydration, metabolic abnormality, hypo/hyperglycemia, electrolyte disturbance, anemia, hypoxia, cardiac sources, intracerebral event, toxicologic, neurologic, as well as other pathologies. ER treatment provided: See below. Diagnostics interpreted by me: ECG: Sinus rhythm with frequent PVCs, 95 bpm, nonspecific ST abnormality, no overt ST ovation or depression, QTc 447, QRS 78. Cardiac Monitoring: An order for continuous cardiac monitoring was placed and demonstrated Sinus rhythm with frequent PVCs, 95 bpm. Laboratory studies: See below Imaging studies: See below Consultation(s): Case was d/w Dr. Kim [facility] [place] who will evaluate the patient for admission. HPI: The patient is a pleasant 78-year-old gentleman with a past medical history of COPD, idiopathic polyneuropathy, vertigo, prostate cancer, hyperlipidemia, hypothyroidism who presents to the emergency department via walk-in accompanied by his neighbor and friend for evaluation of confusion which was noted by family this evening when the patient was on the phone with his daughter and he was confused as to what day it was and had no recollection of what had occurred today. He recalls in great detail events from yesterday when he had taken care of his 9-year-old granddaughter and dropped her off at the school where the patient's daughter works. However, the patient does not have any recollection of events today and did not interact with anyone until the evening when he spoke with his daughter over the phone. Thus, patient's last known well appears to be yesterday sometime. Patient denies any room spinning or lightheadedness. He denies any headache. He denies any extremity weakness. He denies any cough congestion, chest pain, shortness of breath, GI or symptoms. ROS: See above HPI for pertinent positives & negatives. A total of 10 systems reviewed and were otherwise negative. VITALS:See Below PHYSICAL EXAMINATION: GENERAL: Awake, alert, in no distress HENT: Normocephalic, atraumatic. Oropharynx with dry mucous membranes and otherwise unremarkable. EYES: Normal conjunctiva. Sclera non-icteric. EOMI. No nystamgus. PEARRL. NECK: Supple. No nuchal rigidity. FROM. No JVD. RESPIRATORY: Clear to auscultation. CARDIAC: Regular rate, normal rhythm. Extremities warm and well perfused. Pulses equal. ABDOMEN: Soft, non-distended. No tenderness to palpation. No rebound or guarding. No masses. MUSCULOSKELETAL: Chest examination reveals no tenderness. The back is symmetrical on inspection without obvious abnormality. There is no CVA tenderness to palpation. No joint edema. LOWER EXTREMITIES: Calves are equal size bilaterally and non-tender. No edema. No discoloration. NEURO: Amnestic to the past 24 hours. No focal sensory or motor deficits noted. CNII-XII grossly intact. 5/5 strength and SILT x 4 extremities. Cerebellar function intact including [id number]-[id number], alternating palms, qxgg-cf-txmu. SKIN: No rash or jaundice noted. Ike Beltran MD Past Med/Surg History Problem List (Updated 08/18/24 @ 02:07 by Ike Beltran MD) Hypertension (Acute) TGA (transient global amnesia) (Acute) Stroke-like symptoms (Acute) Fever (Acute) Carotid aneurysm, right Idiopathic polyneuropathy Neck pain Ambulatory dysfunction (Acute) COPD (chronic obstructive pulmonary disease) Vertigo (Acute) Prostate cancer (Chronic 02/07/20) Medical History Elevated lactic acid level Hypothyroidism, postablative Diabetes Headache Hx of thyroid cancer Hypercholesterolemia Elevated PSA PVD (peripheral vascular disease) (05/08/13) Surgical History History of thyroidectomy (~2010) Left H/O extremity bypass graft 2010 (Left Leg - [place]), 2012 (Use graft from right into left - Dr. Ely) H/O total knee replacement (~2014) Right H/O amputation of lesser toe (~2009) Family History Father , Passed age 71 of metastatic prostate cancer Diabetes Mother , Passed age 88 of natural causes (alzheimers) No problems noted. Brother Prostate cancer, Onset Age: 63 Hx Prostatectomy & Radiation Brother No problems noted. Brother No problems noted. Brother No problems noted. Brother No problems noted. Sister No problems noted. Sister No problems noted. Daughter No problems noted. Son No problems noted. Son No problems noted. Social History Smoking Status: Never smoker packs per day: 2; Cigarettes Per Day: 2.5 PPD per 60 years; Second Hand Exposure: No; Do You Dip or Chew Tobacco: No; Hx Alcohol Use: Yes Alcohol type: beer Alcohol Intake Frequency: Monthly or Less Hx Substance Use: No Preferred Language: Czech Communication Ability: Effective Visual Impairment: Limited Hearing Ability: Normal Dramatic Critic Required: No Beliefs That Will Affect Care: None marital status: / Current Living Situation: Alone Current Living Situation Comment: Lives at home alone current occupational status: retired current occupation: Retired [employer] age 56 Feels Safe at Home: Yes Diet: diabetic caffeine: Yes (2 cups of coffee/day ) during the past year weight has: remained stable Dental Care, Regularly: No Assistive Devices: Cane and Glasses Allergies Allergies Allergy/AdvReac Type Severity Reaction Status Date / Time No Known Allergies Allergy Verified 08/17/24 22:25 Home Meds Home Medications Medication Instructions Recorded Confirmed multivitamin (Daily Multi-Vitamin 1 tab PO DAILY 05/10/19 08/17/24 tablet) calcium carbonate (Calcium 600) 600 mg PO BID 02/26/20 08/17/24 cinnamon bark 500 mg capsule 1,000 mg PO DAILY 02/26/20 08/17/24 (Cinnamon) metformin 500 mg tablet 500 mg PO BID 02/26/20 08/17/24 rosuvastatin 5 mg tablet 5 mg PO DAILY 02/26/20 08/17/24 fluticasone propionate 50 1 spray intranasal BID PRN 04/07/20 08/17/24 mcg/actuation nasal Shortness Of Breath spray,suspension aspirin 81 mg tablet,delayed 81 mg PO DAILY 07/06/21 08/17/24 release ipratropium 0.5 mg-albuterol 3 mg 3 ml inhalation Q6H PRN Shortness 07/06/21 08/17/24 (2.5 mg base)/3 mL nebulization Of Breath soln tamsulosin 0.4 mg capsule 0.4 mg PO QPM 08/17/24 08/17/24 Previous Rx's Medication Instructions Recorded meclizine 25 mg tablet 25 mg PO TID PRN dizziness #10 tabs 07/08/21 levothyroxine 150 mcg tablet See Rx Instructions PO .COMPLEX 11/04/23 #45 tabs levothyroxine 175 mcg tablet See Rx Instructions PO .COMPLEX 11/04/23 #45 tabs Results & Data (ED) Vital Signs Vital Signs - 24 hr 08/17/24 21:07 08/17/24 21:22 08/17/24 21:29 Temperature 36.6 C Temperature Source Temporal Artery Scan Pulse Rate 107 H 99 H Pulse Rate [Right Finger] Pulse Rate from SpO2 Sensor Pulse Rhythm Regular Pulse Rhythm [Right Finger] Pulse Strength Normal Pulse Strength [Right Finger] Respiratory Rate 20 Respiratory Effort / Characteristics Non-Labored Spontaneous Respiratory Depth Normal Respiratory Pattern Regular Blood Pressure 175/69 H 104/76 Blood Pressure [Right Arm] Blood Pressure Mean 104 77 Blood Pressure Mean [Right Arm] Blood Pressure Position Sitting Blood Pressure Position [Right Arm] Pulse Oximetry 95 Oxygen Delivery Method Room Air Sepsis Recent Fever Within 48 Hours No Sepsis New/Unexplained Change in Mental Status No Sepsis Action Taken by Nursing No Action Required 08/17/24 21:39 08/17/24 22:02 08/17/24 22:03 Temperature Temperature Source Pulse Rate 100 H 90 Pulse Rate [Right Finger] Pulse Rate from SpO2 Sensor 97 H Pulse Rhythm Pulse Rhythm [Right Finger] Pulse Strength Pulse Strength [Right Finger] Respiratory Rate 24 23 Respiratory Effort / Characteristics Respiratory Depth Respiratory Pattern Blood Pressure Blood Pressure [Right Arm] Blood Pressure Mean Blood Pressure Mean [Right Arm] Blood Pressure Position Blood Pressure Position [Right Arm] Pulse Oximetry 95 95 Oxygen Delivery Method Room Air Room Air Sepsis Recent Fever Within 48 Hours Sepsis New/Unexplained Change in Mental Status Sepsis Action Taken by Nursing 08/17/24 22:18 08/17/24 22:39 08/17/24 23:03 Temperature Temperature Source Pulse Rate 92 H 84 Pulse Rate [Right Finger] 81 Pulse Rate from SpO2 Sensor 91 H 87 Pulse Rhythm Pulse Rhythm [Right Finger] Regular Pulse Strength Pulse Strength [Right Finger] Normal Respiratory Rate 21 26 H 17 Respiratory Effort / Characteristics Non-Labored Spontaneous Respiratory Depth Normal Respiratory Pattern Regular Blood Pressure 162/90 H Blood Pressure [Right Arm] 146/74 H Blood Pressure Mean 114 Blood Pressure Mean [Right Arm] 98 Blood Pressure Position Blood Pressure Position [Right Arm] Lying Pulse Oximetry 96 93 94 Oxygen Delivery Method Room Air Sepsis Recent Fever Within 48 Hours Sepsis New/Unexplained Change in Mental Status Sepsis Action Taken by Nursing Laboratory Data Attestation: I reviewed the patient's lab results. 08/17/24 21:38 08/17/24 22:59 Lab Results 08/17/24 08/17/24 08/17/24 Range/Units 21:33 21:38 22:59 WBC 5.13 (4.8-10.8) K/ul RBC 4.67 L (4.70-6.10) M/uL Hgb 13.8 L (14.0-18.0) g/dl POC Hgb 13.6 L (14.0-18.0) g/dl Hct 41.7 L (42.0-52.0) % POC Hct 40 L (42-52) % MCV 89.3 (80.0-100.0) fL MCH 29.6 (25.0-34.0) pg MCHC 33.1 (32.0-36.0) g/dL RDW Std Deviation 45.3 (36.4-46.3) fL RDW Coeff of Elise 13.9 (11.5-14.5) % Plt Count 216 (130-400) K/uL MPV 11.4 (9.4-12.4) fL Immature Gran % (Auto) 0.2 % Neut % (Auto) 58.0 % Lymph % (Auto) 26.9 % [place] % (Auto) 9.6 % Eos % (Auto) 4.7 % Baso % (Auto) 0.6 % Neut # (Auto) 2.98 (1.40-6.50) K/uL Lymph # (Auto) 1.38 (1.20-3.40) K/uL [place] # (Auto) 0.49 (0.11-0.59) K/uL Eos # (Auto) 0.24 (0.00-0.50) K/uL Baso # (Auto) 0.03 (0.00-0.20) K/uL Immature Gran # (Auto) 0.01 (0.01-0.20) K/uL PT Cancelled 10.5 INR Cancelled 1.0 POC Sodium 144 (135-144) mmol/L Sodium 144 (136-145) mmol/L POC Potassium 3.6 (3.3-5.0) mmol/L Potassium TNP 3.9 POC Chloride 108 (101-112) mmol/L Chloride 109 H (98-107) mmol/L Carbon Dioxide 29 (21-32) mmol/L POC Total CO2 21 L (24-31) mmol/L Anion Gap 6 (3-11) POC Anion Gap 19.0 (16-25) mmol/L POC BUN 22 H (7-18) mg/dl BUN 23 (6-23) mg/dl Creatinine 0.76 (0.6-1.4) mg/dl POC Creatinine 0.7 (0.6-1.3) mg/dl Est Cr Clr Drug Dosing 89.1 ml/min eGFR 92.57 BUN/Creatinine Ratio 30.3 H (10-20) Glucose 133 H (70-99(Fasting)) mg/dl POC Glucose (other) 152 H (70-99) mg/dl Calcium 8.9 (8.6-10.3) mg/dl POC Ioniz Calcium Patrizia 1.16 (1.12-1.32) mmol/l Phosphorus 3.4 (2.5-4.9) mg/dl Total Bilirubin 0.3 (0.2-1.0) mg/dl AST TNP 16 ALT 19 (7-52) U/L Alkaline Phosphatase 105 H (34-104) U/L Troponin I High Sens < 2.3 (0-20) pg/ml Total Protein 6.8 (6.0-8.3) gm/dl Albumin 4.3 (3.4-5.0) gm/dl Globulin 2.5 (2.5-4.0) gm/dl Albumin/Globulin Ratio 1.7 (0.9-2) Lipase 49 (11-82) U/L Vitamin B12 (180-914) pg/ml Folate (>5.38) ng/ml TSH 0.234 L (0.300-4.500) uIu/ml Free T4 1.03 (0.61-1.60) ng/dl Ethyl Alcohol mg/dL (<10.0) mg/dl Lyme Disease Screen (Negative) 08/17/24 08/17/24 Range/Units 23:54 23:59 WBC (4.8-10.8) K/ul RBC (4.70-6.10) M/uL Hgb (14.0-18.0) g/dl POC Hgb (14.0-18.0) g/dl Hct (42.0-52.0) % POC Hct (42-52) % MCV (80.0-100.0) fL MCH (25.0-34.0) pg MCHC (32.0-36.0) g/dL RDW Std Deviation (36.4-46.3) fL RDW Coeff of Elise (11.5-14.5) % Plt Count (130-400) K/uL MPV (9.4-12.4) fL Immature Gran % (Auto) % Neut % (Auto) % Lymph % (Auto) % [place] % (Auto) % Eos % (Auto) % Baso % (Auto) % Neut # (Auto) (1.40-6.50) K/uL Lymph # (Auto) (1.20-3.40) K/uL [place] # (Auto) (0.11-0.59) K/uL Eos # (Auto) (0.00-0.50) K/uL Baso # (Auto) (0.00-0.20) K/uL Immature Gran # (Auto) (0.01-0.20) K/uL PT INR POC Sodium (135-144) mmol/L Sodium (136-145) mmol/L POC Potassium (3.3-5.0) mmol/L Potassium POC Chloride (101-112) mmol/L Chloride (98-107) mmol/L Carbon Dioxide (21-32) mmol/L POC Total CO2 (24-31) mmol/L Anion Gap (3-11) POC Anion Gap (16-25) mmol/L POC BUN (7-18) mg/dl BUN (6-23) mg/dl Creatinine (0.6-1.4) mg/dl POC Creatinine (0.6-1.3) mg/dl Est Cr Clr Drug Dosing ml/min eGFR BUN/Creatinine Ratio (10-20) Glucose (70-99(Fasting)) mg/dl POC Glucose (other) (70-99) mg/dl Calcium (8.6-10.3) mg/dl POC Ioniz Calcium Patrizia (1.12-1.32) mmol/l Phosphorus (2.5-4.9) mg/dl Total Bilirubin (0.2-1.0) mg/dl AST ALT (7-52) U/L Alkaline Phosphatase (34-104) U/L Troponin I High Sens (0-20) pg/ml Total Protein (6.0-8.3) gm/dl Albumin (3.4-5.0) gm/dl Globulin (2.5-4.0) gm/dl Albumin/Globulin Ratio (0.9-2) Lipase (11-82) U/L Vitamin B12 374 (180-914) pg/ml Folate > 22.30 (>5.38) ng/ml TSH (0.300-4.500) uIu/ml Free T4 (0.61-1.60) ng/dl Ethyl Alcohol mg/dL < 10.0 (<10.0) mg/dl Lyme Disease Screen Negative (Negative) Administered Medications Discontinued Medications Acetaminophen (Acetaminophen 325 Mg Tab) 650 mg PO NOW STA Stop: 08/18/24 00:38 Last Admin: 08/18/24 01:35 Dose: 650 mg Documented By: PAG Sodium Chloride (Nss) 500 mls @ 999 mls/hr IV .Q31M ONE Stop: 08/17/24 21:50 Last Infusion: 08/17/24 22:36 Dose: Infused Documented By: Admin: 08/17/24 21:33 Dose: 999 mls/hr Documented By: CEF Ioversol (Optiray 320 125ml) 119 ml IV ONCE ONE Stop: 08/17/24 22:34 Last Admin: 08/17/24 22:34 Dose: 119 ml Documented By: PLW Imaging Data Radiologist's Impression: Chest X-Ray 08/17/24 21:20 Exam(s): XR CXR 1 VIEW EXAM: XR Chest, 1 View CLINICAL HISTORY: Reason for exam: Chest pain, nonspecific. TECHNIQUE: Frontal view of the chest. COMPARISON: July 17, 2024 FINDINGS: Lungs: Unremarkable. No acute infiltration, atelectasis or mass. Pleural space: Unremarkable. No pneumothorax or pleural fluid. Heart: Unremarkable. No cardiomegaly. Mediastinum: Unremarkable. Normal mediastinal contour. Bones/joints: No acute findings. IMPRESSION: No acute findings in the chest. Electronically signed by: Francis Piña MD 08/17/24 23:[address] 08/17/24 22:17 Exam(s): CT HEAD Without Contrast EXAM: CT Head Without Intravenous Contrast CLINICAL HISTORY: Reason for exam: global amesia. TECHNIQUE: Axial computed tomography images of the head/brain without intravenous contrast. CTDI is 11.7 mGy and DLP is 454 mGy-cm. Automated exposure control was utilized for the study. A dose lowering technique was utilized adhering to the principles of ALARA. COMPARISON: No relevant prior studies available. FINDINGS: Brain: Unremarkable for age. No acute intracranial hemorrhage, edema or abnormal mass-effect. Ventricles: Unremarkable. No ventriculomegaly. Bones/joints: Unremarkable. No acute fracture. Soft tissues: Unremarkable. Sinuses: Unremarkable as visualized. No acute sinusitis. Mastoid air cells: Unremarkable as visualized. No mastoid effusion. IMPRESSION: No acute or focal intracranial abnormality. Electronically signed by: Francis Piña MD 08/17/24 23:21 PM Head CTA 08/17/24 22:17 Exam(s): CTA HEAD With Contrast IV Amt: 119 ml opti 320 EXAM: CT Angiography Head With Intravenous Contrast CLINICAL HISTORY: Reason for exam: global amnesia. TECHNIQUE: Axial computed tomographic angiography images of the head with intravenous contrast. CTDI is 11.7 mGy and DLP is 454 mGy-cm. Automated exposure control was utilized for the study. A dose lowering technique was utilized adhering to the principles of ALARA. MIP reconstructed images were created and reviewed. CONTRAST: Patient received 119 ml opti 320 of IV contrast COMPARISON: No relevant prior studies available. FINDINGS: Right internal carotid artery: No acute findings. Intracranial segment is patent with no significant stenosis. No aneurysm. Right anterior cerebral artery: Unremarkable. No occlusion or significant stenosis. No aneurysm. Right middle cerebral artery: Unremarkable. No occlusion or significant stenosis. No aneurysm. Right posterior cerebral artery: Unremarkable. No occlusion or significant stenosis. No aneurysm. Right vertebral artery: Unremarkable as visualized. Left internal carotid artery: No acute findings. Intracranial segment is patent with no significant stenosis. No aneurysm. Left anterior cerebral artery: Unremarkable. No occlusion or significant stenosis. No aneurysm. Left middle cerebral artery: Unremarkable. No occlusion or significant stenosis. No aneurysm. Left posterior cerebral artery: Unremarkable. No occlusion or significant stenosis. No aneurysm. Left vertebral artery: Unremarkable as visualized. Basilar artery: Unremarkable. No occlusion or significant stenosis. No aneurysm. IMPRESSION: Normal head CTA. Electronically signed by: Francis Piña MD 08/17/24 23:23 PM Neck CTA 08/17/24 22:17 Exam(s): CTA NECK With Contrast IV Amt: 119 ml opti 320 EXAM: CT Angiography Neck With Intravenous Contrast CLINICAL HISTORY: Reason for exam: global amnesia. TECHNIQUE: Routine carotid CT angiography protocol was performed with intravenous contrast. NASCET criteria using the distal ICAs for comparison were used for evaluation of stenoses. CTDI is 11.7 mGy and DLP is 454 mGy-cm. Automated exposure control was utilized for the study. A dose lowering technique was utilized adhering to the principles of ALARA. MIP reconstructed images were created and reviewed. CONTRAST: Patient received 119 ml opti 320 of IV contrast COMPARISON: None. FINDINGS: VASCULATURE: Right common carotid artery: Unremarkable. No occlusion or significant stenosis. No dissection. Right internal carotid artery: Unremarkable. Extracranial segment is patent with no occlusion or significant stenosis. No dissection. Right external carotid artery: Unremarkable. No occlusion. Right vertebral artery: Unremarkable. No occlusion or significant stenosis. No dissection. Left common carotid artery: Unremarkable. No occlusion or significant stenosis. No dissection. Left internal carotid artery: Unremarkable. Extracranial segment is patent with no occlusion or significant stenosis. No dissection. Left external carotid artery: Unremarkable. No occlusion. Left vertebral artery: Unremarkable. No occlusion or significant stenosis. No dissection. NECK: Bones/joints: No acute findings. Extensive degenerative changes in the cervical spine. Soft tissues: Unremarkable. Lung apices: Clear. No acute findings. CAROTID STENOSIS REFERENCE USING NASCET CRITERIA: % ICA stenosis = (1 - narrowest ICA diameter/diameter of distal cervical ICA) x 100. Mild - <50% stenosis. Moderate - 50-69% stenosis. Severe - 70-94% stenosis. Near occlusion - 95-99% stenosis. Occluded - 100% stenosis. IMPRESSION: No evidence of occlusion, dissection or stenosis of greater than 50% in the carotid or vertebral arteries in the neck. Electronically signed by: Francis Piña MD 08/17/24 23:28 PM Discharge Plan Visit Data Chief Complaint: Confusion Stated Complaint: CONFUSION,DIZZY ED Provider: Ike Beltran Discharge Problem: Stroke-like symptoms, TGA (transient global amnesia), Hypertension Discharge Instructions Interventions: ED Discharge Assessment Last Done: 08/18/24 01:29 Discharge Problem: Hypertension Qualifiers: Hypertension type: unspecified Qualified Code(s): I10 - Essential (primary) hypertension
[2024-08-17 22:24] LABS: Basophils # (auto) 0.03 K/uL (0.00-0.20); Basophils % (auto) 0.6 %; Eosinophils # (auto) 0.24 K/uL (0.00-0.50); Eosinophils % (auto) 4.7 %; Hematocrit (blood only) 41.7 % (42.0-52.0); Hemoglobin 13.8 g/dl (14.0-18.0); Immature Granulocytes # (auto) 0.01 K/uL (0.01-0.20); Immature Granulocytes % (auto) 0.2 %; Lymphocytes # (auto) 1.38 K/uL (1.20-3.40); Lymphocytes % (auto) 26.9 %; Mean Corpuscular Hemoglobin 29.6 pg (25.0-34.0); Mean Corpuscular Hgb Conc 33.1 g/dL (32.0-36.0); Mean Corpuscular Volume 89.3 fL (80.0-100.0); Mean Platelet Volume 11.4 fL (9.4-12.4); Monocytes # (auto) 0.49 K/uL (0.11-0.59); Monocytes % (auto) 9.6 %; Neutrophils # (auto) 2.98 K/uL (1.40-6.50); Platelet Count 216 K/uL (130-400); RDW Coefficient of Variation 13.9 % (11.5-14.5); RDW Standard Deviation 45.3 fL (36.4-46.3); Red Blood Count 4.67 M/uL (4.70-6.10); White Blood Count 5.13 K/ul (4.8-10.8)
[2024-08-17] MEDS: OPTIRAY 320 125ml IV ONE (22:34)
[2024-08-17 22:35] LABS: Thyroid Stimulating Hormone 0.234 uIu/ml (0.300-4.500); Troponin I High Sensitivity < 2.3 pg/ml (0-20)
--- NOTE | 2024-08-17 23:19 | XRay Report ---
Exam(s): XR CXR 1 VIEW EXAM: XR Chest, 1 View CLINICAL HISTORY: Reason for exam: Chest pain, nonspecific. TECHNIQUE: Frontal view of the chest. COMPARISON: July 17, 2024 FINDINGS: Lungs: Unremarkable. No acute infiltration, atelectasis or mass. Pleural space: Unremarkable. No pneumothorax or pleural fluid. Heart: Unremarkable. No cardiomegaly. Mediastinum: Unremarkable. Normal mediastinal contour. Bones/joints: No acute findings. IMPRESSION: No acute findings in the chest. Electronically signed by: Francis Piña MD 08/17/24 23:19 PM
--- NOTE | 2024-08-17 23:22 | CT Scan Report ---
Exam(s): CT HEAD Without Contrast EXAM: CT Head Without Intravenous Contrast CLINICAL HISTORY: Reason for exam: global amesia. TECHNIQUE: Axial computed tomography images of the head/brain without intravenous contrast. CTDI is 11.7 mGy and DLP is 454 mGy-cm. Automated exposure control was utilized for the study. A dose lowering technique was utilized adhering to the principles of ALARA. COMPARISON: No relevant prior studies available. FINDINGS: Brain: Unremarkable for age. No acute intracranial hemorrhage, edema or abnormal mass-effect. Ventricles: Unremarkable. No ventriculomegaly. Bones/joints: Unremarkable. No acute fracture. Soft tissues: Unremarkable. Sinuses: Unremarkable as visualized. No acute sinusitis. Mastoid air cells: Unremarkable as visualized. No mastoid effusion. IMPRESSION: No acute or focal intracranial abnormality. Electronically signed by: Francis Piña MD 08/17/24 23:21 PM
--- NOTE | 2024-08-17 23:24 | CT Scan Report ---
Exam(s): CTA HEAD With Contrast IV Amt: 119 ml opti 320 EXAM: CT Angiography Head With Intravenous Contrast CLINICAL HISTORY: Reason for exam: global amnesia. TECHNIQUE: Axial computed tomographic angiography images of the head with intravenous contrast. CTDI is 11.7 mGy and DLP is 454 mGy-cm. Automated exposure control was utilized for the study. A dose lowering technique was utilized adhering to the principles of ALARA. MIP reconstructed images were created and reviewed. CONTRAST: Patient received 119 ml opti 320 of IV contrast COMPARISON: No relevant prior studies available. FINDINGS: Right internal carotid artery: No acute findings. Intracranial segment is patent with no significant stenosis. No aneurysm. Right anterior cerebral artery: Unremarkable. No occlusion or significant stenosis. No aneurysm. Right middle cerebral artery: Unremarkable. No occlusion or significant stenosis. No aneurysm. Right posterior cerebral artery: Unremarkable. No occlusion or significant stenosis. No aneurysm. Right vertebral artery: Unremarkable as visualized. Left internal carotid artery: No acute findings. Intracranial segment is patent with no significant stenosis. No aneurysm. Left anterior cerebral artery: Unremarkable. No occlusion or significant stenosis. No aneurysm. Left middle cerebral artery: Unremarkable. No occlusion or significant stenosis. No aneurysm. Left posterior cerebral artery: Unremarkable. No occlusion or significant stenosis. No aneurysm. Left vertebral artery: Unremarkable as visualized. Basilar artery: Unremarkable. No occlusion or significant stenosis. No aneurysm. IMPRESSION: Normal head CTA. Electronically signed by: Francis Piña MD 08/17/24 23:23 PM
[2024-08-17 23:28] LABS: Potassium 3.9 mmol/L (3.5-5.1)
--- NOTE | 2024-08-17 23:28 | CT Scan Report ---
Exam(s): CTA NECK With Contrast IV Amt: 119 ml opti 320 EXAM: CT Angiography Neck With Intravenous Contrast CLINICAL HISTORY: Reason for exam: global amnesia. TECHNIQUE: Routine carotid CT angiography protocol was performed with intravenous contrast. NASCET criteria using the distal ICAs for comparison were used for evaluation of stenoses. CTDI is 11.7 mGy and DLP is 454 mGy-cm. Automated exposure control was utilized for the study. A dose lowering technique was utilized adhering to the principles of ALARA. MIP reconstructed images were created and reviewed. CONTRAST: Patient received 119 ml opti 320 of IV contrast COMPARISON: None. FINDINGS: VASCULATURE: Right common carotid artery: Unremarkable. No occlusion or significant stenosis. No dissection. Right internal carotid artery: Unremarkable. Extracranial segment is patent with no occlusion or significant stenosis. No dissection. Right external carotid artery: Unremarkable. No occlusion. Right vertebral artery: Unremarkable. No occlusion or significant stenosis. No dissection. Left common carotid artery: Unremarkable. No occlusion or significant stenosis. No dissection. Left internal carotid artery: Unremarkable. Extracranial segment is patent with no occlusion or significant stenosis. No dissection. Left external carotid artery: Unremarkable. No occlusion. Left vertebral artery: Unremarkable. No occlusion or significant stenosis. No dissection. NECK: Bones/joints: No acute findings. Extensive degenerative changes in the cervical spine. Soft tissues: Unremarkable. Lung apices: Clear. No acute findings. CAROTID STENOSIS REFERENCE USING NASCET CRITERIA: % ICA stenosis = (1 - narrowest ICA diameter/diameter of distal cervical ICA) x 100. Mild - <50% stenosis. Moderate - 50-69% stenosis. Severe - 70-94% stenosis. Near occlusion - 95-99% stenosis. Occluded - 100% stenosis. IMPRESSION: No evidence of occlusion, dissection or stenosis of greater than 50% in the carotid or vertebral arteries in the neck. Electronically signed by: Francis Piña MD 08/17/24 23:28 PM
[2024-08-17 23:36] LABS: Prothrombin Time 10.5 Seconds (9.0-12.0)
[2024-08-17 23:41] LABS: T4 Free Thyroxine 1.03 ng/dl (0.61-1.60)
--- NOTE | 2024-08-17 23:59 | History & Physical Report ---
Date of Service August 17, 2024 Assessment & Plan (1) TGA (transient global amnesia): (2) Stroke-like symptoms: (3) T2DM (type 2 diabetes mellitus): Plan Patient is a 78-year-old male with past medical history of PVD, HLD, thyroid cancer s/p thyroidectomy, COPD, vertigo, DM, prostate cancer. He presented to the ED due to complete loss of memory for the entire day 08/17. Patient is slowly regaining memory and stated he has had blurry vision, right face numbness, and difficulty ambulating throughout the day. Head CT, head CTA, neck CTA were unremarkable. No abnormalities found on laboratories in ED. Patient is being admitted for stroke workup including MRI. #transient global amnesia - CT head and Head/Neck CTA negative for acute changes - TSH WNL, EToH < 10.0 - Echo 2021 does not appear bubble study done, relatively normal results - EF 55 to 60%, mild TR - stroke without TNK order set (LKW >24 hrs prior to admission) - Q4H neuro checks, pt/ot evals - continue daily baby ASA 81mg daily - increase 5 Mg daily rosuvastatin to 10 Mg daily rosuvastatin - Allow for permissive hypertension with goal parameters 220/110 until MRI resulted - MRI ordered - lipid panel and A1C with AM labs - Confusion workup including UA, UDS, B12, folate, B1, and Lyme screen ordered #T2DM A1C 5.9% in 2021 - continue metformin 500 twice daily, defer SSI #hypothyroidism history of thyroid cancer s/p thyroidectomy, TSH stable - continue levothyroxine #COPD stable - continue home inhalers #prostate cancer - not currently in retention - continue Flomax - bladder scan prn #PVD/HLD - s/p left hallux amputation - continue statin and ASA #anemia - Hgb 13.8, baseline, stable VTE ppx: SCDs, low risk and defer with stroke workup Dispo: med/tele Admission and Anticipated Discharge Date Admission Date: 08/18/24 History of Present Illness Chief Complaint: Confusion Primary Care Provider: NO PCP Patient is a 78-year-old male with past medical history of PVD, HLD, thyroid cancer s/p thyroidectomy, COPD, vertigo, DM, prostate cancer. He presented to the ED due to complete loss of memory for the entire day 08/17. Patient is slowly regaining memory and stated he has had blurry vision, right face numbness, and difficulty ambulating throughout the day. Head CT, head CTA, neck CTA were unremarkable. No abnormalities found on laboratories in ED. Coleen stuart is being admitted for stroke workup including MRI. Patient seen at bedside with his neighbor present. He stated the last thing he remembers is going to bed night. He woke up today and thought it was Tuesday morning. He turned on his TV and saw it was 08/17 and knew that it was the day of Tuesday and thought that his TV and clocks were wrong. Patient stated as his memories came back throughout the day he remembers having blurry vision, difficulty ambulating, and right face numbness. The symptoms have since improved however still present. He also endorses a headache. He does endorse diarrhea few days ago, however resolved. He denies any numbness or tingling of extremities, facial droop, chest pain, worsening shortness of breath (has dyspnea at baseline with COPD), abdominal pain, nausea. Patient is a former smoker however and no longer smokes. He believes he took his home and occasions this morning but is unsure. Patient stated he does somewhat remember coming into the ED and things that have happened here however has poor memory of them. His neighbor provided the following history. She stated she received a phone call from the patient's ex son-in-law stating that the patient was worked up thinking he dropped his granddaughter off at the wrong place. His neighbor went to check on him and found him to be confused. His neighbor stated he was walking outside his usual earlier today. She brought him into the ED. Allergies Allergy/AdvReac Type Severity Reaction Status Date / Time No Known Allergies Allergy Verified 08/17/24 22:25 Home Medications Medication Instructions Recorded Confirmed Type multivitamin (Daily Multi-Vitamin 1 tab PO DAILY 05/10/19 08/17/24 History tablet) calcium carbonate (Calcium 600) 600 mg PO BID 02/26/20 08/17/24 History cinnamon bark 500 mg capsule 1,000 mg PO DAILY 02/26/20 08/17/24 History (Cinnamon) metformin 500 mg tablet 500 mg PO BID 02/26/20 08/17/24 History fluticasone propionate 50 1 spray intranasal BID PRN 04/07/20 08/17/24 History mcg/actuation nasal Shortness Of Breath spray,suspension aspirin 81 mg tablet,delayed 81 mg PO DAILY 07/06/21 08/17/24 History release ipratropium 0.5 mg-albuterol 3 mg 3 ml inhalation Q6H PRN Shortness 07/06/21 08/17/24 History (2.5 mg base)/3 mL nebulization Of Breath soln meclizine 25 mg tablet 25 mg PO TID PRN dizziness #10 tabs 07/08/21 08/17/24 Rx levothyroxine 150 mcg tablet See Rx Instructions PO .COMPLEX 11/04/23 08/17/24 Rx #45 tabs levothyroxine 175 mcg tablet See Rx Instructions PO .COMPLEX 11/04/23 08/17/24 Rx #45 tabs tamsulosin 0.4 mg capsule 0.4 mg PO QPM 08/17/24 08/17/24 History cetirizine 10 mg tablet (Zyrtec) 10 mg PO DAILY #10 tabs 08/18/24 Rx rosuvastatin 10 mg tablet 10 mg PO QAM #30 tabs 08/18/24 Rx Past Med/Surg History Problem List (Updated 08/18/24 @ 03:01 by Vibha Reynolds PA-C) T2DM (type 2 diabetes mellitus) Hypertension (Acute) TGA (transient global amnesia) (Acute) Stroke-like symptoms (Acute) Fever (Acute) Carotid aneurysm, right Idiopathic polyneuropathy Neck pain Ambulatory dysfunction (Acute) COPD (chronic obstructive pulmonary disease) Vertigo (Acute) Prostate cancer (Chronic 02/07/20) Medical History Elevated lactic acid level Hypothyroidism, postablative Diabetes Headache Hx of thyroid cancer Hypercholesterolemia Elevated PSA PVD (peripheral vascular disease) (05/08/13) Surgical History History of thyroidectomy (~2010) Left H/O extremity bypass graft 2010 (Left Leg - [place]), 2012 (Use graft from right into left - Dr. Hayden smith) H/O total knee replacement (~2014) Right H/O amputation of lesser toe (~2009) Family History Father , Passed age 71 of metastatic prostate cancer Diabetes Mother , Passed age 88 of natural causes (alzheimers) No problems noted. Brother Prostate cancer, Onset Age: 63 Hx Prostatectomy & Radiation Brother No problems noted. Brother No problems noted. Brother No problems noted. Brother No problems noted. Sister No problems noted. Sister No problems noted. Daughter No problems noted. Son No problems noted. Son No problems noted. Social History Smoking Status: Former smoker Tobacco Type: Cigarettes packs per day: 2; Cigarettes Per Day: 2.5 PPD per 60 years; Second Hand Exposure: No; Do You Dip or Chew Tobacco: No; Hx Alcohol Use: Yes Alcohol type: beer Alcohol Intake Frequency: Monthly or Less Hx Substance Use: No Preferred Language: Lao Communication Ability: Effective Visual Impairment: Limited Hearing Ability: Normal Front End Engineer Required: No Beliefs That Will Affect Care: None marital status: / Current Living Situation: Alone Current Living Situation Comment: Lives at home alone current occupational status: retired current occupation: Retired [employer] age 56 Feels Safe at Home: Yes Diet: diabetic caffeine: Yes (2 cups of coffee/day ) during the past year weight has: remained stable Dental Care, Regularly: No Assistive Devices: Cane, Denture - Upper, Denture - Lower and Glasses Review of Systems Review of Systems: see HPI Physical Exam Physical Exam: The patient is awake, alert and oriented 3, well developed and well nourished, normocephalic and atraumatic, in no acute distress. Non-toxic appearing. HEENT- EOMI, mucous membranes moist. Hearing grossly intact. Heart-normal S1 and S2. No murmurs, rubs or gallops. Lungs-clear bilaterally, no respiratory distress, no accessory muscle use. Abdomen-normal bowel sounds and soft. No ascites noted. Non-tender. Extremities- no clubbing, cyanosis, or edema. Rheumatologic-normal range of motion. Psychiatric-normal affect. Musculoskeletal: no cyanosis or clubbing, extremities motor strength 5/5 Neurologic: PERRL, EOMI, accommodation nl, no face palsy, no dysarthria CN's II-XI intact bilaterally; no focal motor deficits Speech / Cognition: normal speech Motor/Sensory: no pronator drift and no sensory deficit Coordination: normal [id number] test Results & Data Results & Data Vital Signs (Past 12 Hours) Vital Signs Temp Pulse Resp BP Pulse Ox O2 Del Method 08/17/24 22:39 84 26 H 162/90 H 93 08/17/24 22:18 92 H 21 96 08/17/24 22:03 90 23 95 Room Air 08/17/24 22:02 Room Air 08/17/24 21:39 100 H 24 95 08/17/24 21:29 99 H 08/17/24 21:22 104/76 08/17/24 21:07 36.6 C 107 H 20 175/69 H 95 Room Air Laboratory Results Reviewed CBC, CMP, TSH Diagnostic Findings reviewed head CT, head CTA, neck CTA, CXR Medications Administered EDNSS 500 mL bolus ECG Additional Comments: Ordered Code Status & VTE Plan Code Status full code VTE Prophylaxis Plan VTE Prophylaxis will be ordered: Yes Supervising Physician Co-Signing Physician Notes Patient seen and examined, chart reviewed, case discussed with WHIT Reynolds and I agree with the assessment and plan as document above. In brief, patient is 78-year-old male presenting with episode of transient global amnesia. Patient has no recollection of the day prior. He also endorses at that time had some mild left-sided facial numbness as well as some slurred speech. Patient reports that he had a somewhat similar event when he was in his 30s and was diagnosed with a stroke On physical exam he is afebrile, hemodynamically stable, oriented x 4 Skin warm, dry, intact, no rashes HEENTmoist mucous membranes, neck supple Heart+ S1, S2, regular, no murmur/rub/gallops Lungs CTA anteriorly with no rales/rhonchi/wheezes Abdomensoft, nontender, nondistended Neurologicno deficits Labs and images reviewed Assessment/plan: 78-year-old male with history of diabetes, peripheral vascular disease, hyperlipidemia presenting with transient global amnesia check MRI brain Check lipid panel and hemoglobin A1c Continue aspirin Continue home medications as above PG Care Time/CCT Total # of Minutes Spent Total Time Spent with Patient: Total time spent is greater than 50% in coordination of care (as documented) at patient's floor/unit and/or counseling patient: Coding Level of Care Code 59178 INT INP/OBS CARE 75MIN Diagnoses TGA (transient global amnesia) G45.4 Stroke-like symptoms R29.90 T2DM (type 2 diabetes mellitus) E11.9
--- OUTSIDE RECORDS SUMMARY | 2024-08-18 | External Medical Summary | Summary of Care ---
Author Name Unknown Organization [facility] Address [address] [place] [address] Phone [phone] Care Team Providers Care Maintenance Painter Name Role Phone Topher Gutierrez MD Primary Care Provider [phone]- [phone] Encounter Details Date Type Department Care Team (Late st Contact Info) Description 07/31/2024 Orders Only PATIENT PORTAL DO NOT DELETE THIS DEPT USED BY CHANA GUARDADO [id number] Allergies No known active allergiesdocumented as of this encounter (statuses as of 07/31/2024) Medications ASPIRIN 325 MG PO TABS one [...] Dizziness. 30 Tablet 1 04/21/20 23 Active Fish Oil 1000 MG Oral Capsule [...] at bedtime. 30 Tablet 05/21/19 25 Active metFORMIN HCl 500 MG Oral Tablet (Glucophage)Indica tions:Prediabetes TAKE 1 TABLET BY MOUTH IN THE MORNING AND BEFORE BEDTIME 180 Tablet 1 07/29/19 25 Active documented as of this encounter (statuses as of 07/31/2024) Active Problems Problem Noted Date Diagnosed Date Chronic obstructive pulmonary disease 11/01/2023 Acquired absence of other toe(s), unspecified si de 09/09/2021 Dyslipidemia 09/09/2021 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/09/2021 History of thyroid cancer 09/09/2021 Personal history of malignant neoplasm of prosta te 09/09/2021 Postoperative hypothyroidism 09/09/2021 documented as of this encounter (statuses as of 07/31/2024) Resolved Problems Problem Noted Date Diagnosed Date Resolved Date Prediabetes 09/09/2021 05/24/2024 Gangrene of toe 06/14/2013 09/09/2021 Atherosclerotic PVD with ulceration 05/17/2013 04/21/2023 documented as of this encounter (statuses as of 07/31/2024) Immunizations Name Administration Dates Next Due COVID-19 [...] ages 0-17 years) Not on file 11/01/2023 Food Insecurity Answer Date Recorded Within the past 12 months, y ou worried that your food would run out before you got the money to buy more. Never true 11/01/19 24 Within the past 12 months, t he food you bought just didn't last and you didn't have money to get more. Never true 11/01/2023 Do you need food for this week? No 11/01/2023 Sex and Gender Information Value Date Recorded Sex Assigned at Male 11/01/2023 8:20 AM EDT Legal Sex Male 5:57 AM EST Gender Identity Male 11/01/2023 8:20 AM EDT Sexual Orientation Straight 11/01/2023 8: 20 AM EDT documented as of this encounter Plan of Treatment Upcoming Encounters Date Type Department Care Team (Late st Contact Info) Description 2024 8:00 AM EDT [facility] [address] [phone] Topher Gutierrez MD [address] [phone] Health Maintenance Due Date Last Done Comments Alpha-1 Antitrypsin 1964 Zoster Vaccines (1 of 2) 1996 Adult Wellness Visit 2012 *BASELINE EKG FOR HTN 05/08/2014 *COPD SEVERITY VERIFIED BY PFT 11/04/2023 COVID-19 Vaccine ( season) 2024 02/09/2024, 02/17/2023, 03/04/2022, Additional history exists Depression Screening 10/31/2024 11/01/2023 [...] on patient's age to complete this topic Meningitis B Vaccine (Bexsero/Trumemba) Aged Out No longer eligible based on patient's age to complete this topic Sigmoidoscopy Discontinued documented as of this encounter Medical Devices Not on filedocumented as of this encounter Care Teams Maintenance Painter Relationship Specialty Start Date End Date Topher Gutierrez MD PCP - General Family Medicine 07/20/21 documented as of this encounter
--- OUTSIDE RECORDS SUMMARY | 2024-08-18 | External Medical Summary | Summary of Care ---
Author Name Unknown Organization [facility] Address [address] [place] [address] Phone [phone] Care Team Providers Care Second Officer Name Role Phone Josafat Daniels MD Primary Care Provider [phone]- [phone] Reason for Visit * Reason Comments eRx-Medication Refill Encounter Details Date Type Department Care Team (Late st Contact Info) Description 07/28/2024 Refill [facility] [address] [place] [address] Josafat Daniels MD [address] [place] [address] Encounter for long-term (current) use of medications*; Prediabetes Allergies No known active allergiesdocumented as of this encounter (statuses as of 08/01/2024) Medications ASPIRIN 325 MG PO TABS one tablet daily Active MULTIVITAMINS PO CHEW None Entered Active Levothyroxine Sodium 150 MCG Oral Tablet (Levoxyl) Take 1 Tablet by mouth every other day. Active Levothyroxine Sodium 175 MCG Oral Tablet (Levoxyl) Take 1 Tablet by mouth every other day. Alternating with 150mg Active Tamsulosin HCl 0.4 MG Oral Capsule (Flomax) Take 1 Capsule by mouth every evening. Active Calcium Carbonate 1500 (600 Ca) MG [...] as needed for Dizziness. 30 Tablet 1 023 Active Fish Oil 1000 MG Oral Capsule Take 1 Capsule by mouth in the morning. Active Albuterol Sulfate HFA 108 (90 Base) MCG/ACT Inhalation Aerosol SolutionIndicatio ns:Shortness of breath INHALE 2 PUFFS BY MOUTH EVERY 4 HOURS NEEDED FOR WHEEZE 18 g 5 024 Active Urea 20 % External Cream Apply topically to affected area. 024 Active Rosuvastatin Calcium 5 MG Oral Tablet (Crestor)Indicati ons:Dyslipidemia Take 1 Tablet by mouth in the morning. 90 Tablet 3 025 Active traMADol HCl 50 MG Oral Tablet (Ultram)Indicatio ns:Peripheral polyneuropathy Take 1 Tablet by mouth every night at bedtime. 30 Tablet 025 Active metFORMIN HCl 500 MG Oral Tablet (Glucophage)Indic ations:Prediabete s TAKE 1 TABLET BY MOUTH IN THE MORNING AND BEFORE BEDTIME 180 Tablet 1 025 Active metFORMIN HCl 500 MG Oral Tablet (Glucophage)Indic ations:Prediabete s TAKE 1 TABLET BY MOUTH IN THE MORNING AND BEFORE BEDTIME 180 Tablet 3 024 2024 Discontinued documented as of this encounter (statuses as of 08/01/2024) Active Problems Problem Noted Date Diagnosed Date Chronic obstructive pulmonary disease 11/01/2023 Acquired absence of other toe(s), unspecified si de 09/09/2021 Dyslipidemia 09/09/2021 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/09/2021 History of thyroid cancer 09/09/2021 Personal history of malignant neoplasm of prosta te 09/09/2021 Postoperative hypothyroidism 09/09/2021 documented as of this encounter (statuses as of 08/01/2024) Resolved Problems Problem Noted Date Diagnosed Date Resolved Date Prediabetes 09/09/2021 05/24/2024 Gangrene of toe 06/14/2013 09/09/2021 Atherosclerotic PVD with ulceration 05/17/2013 04/21/2023 documented as of this encounter (statuses as of 08/01/2024) Immunizations Name Administration Dates Next Due COVID-19 [...] encounter Miscellaneous Notes * Telephone Encounter - Wilbur Nuñez - 08/01/2024 7:11 AM EDT Received message from [facility] regarding patient needing labs. Patient was notified. Successfully contacted patient and provided [facility] message. * Telephone Encounter - Ludivina Meadows [facility] - 07/28/2024 7:43 PM EDTSigned Prescriptions: Disp Refills metFORMIN HCl 500 MG Oral Tablet (Glucopha*180 Ta*1 Sig: TAKE 1 TABLET BY MOUTH IN THE MORNING AND BEFORE BEDTIME Authorizing Provider: JOSAFAT DANIELS Ordering User: LUDIVINA MEADOWS * Telephone Encounter - Ludivina Meadows RPh - 07/28/2024 7:42 PM EDT Provided 90 days supply with 1 refill(s). Per refill protocol patient should have BMP on file within past year. Reviewed : AMP report Care Gaps/Health Maintenance medications list for any routine labs typically ordered for this patient. Lab orders placed. Please contact patient to advise of labs ordered for blood draw. Fasting is not required. Advise toobtain labs before requesting the next refill. Thanks, Ludivina Meadows [facility] Clinical Pharmacist [facility] [phone] documented in this encounter Plan of Treatment Upcoming Encounters Date Type Department Care Team (Late st Contact Info) Description 2024 8:00 AM EDT Office Visit [facility] [address] [facility] [place] [phone] Josafat Daniels MD [address] [facility] [place] [place] [address] Scheduled Orders Name Type Priority Associated Diagnoses Orde r Schedule BASIC METABOLIC PANEL Lab Routine Encounter for long-term (current) use of medications Expected: 08/04/2024 (Approximate), Expires: 07/28/2025 Health Maintenance Due Date Last Done Comments [...] as of this encounter Visit Diagnoses Diagnosis Encounter for long-term (current) use of medications- Primary Encounter for long-term (current) use of other medications Prediabetes Other abnormal glucose documented in this encounter Care Teams Second Officer Relationship Specialty Start Date End Date Josafat Daniels MD PCP - General Family Medicine 07/20/21 documented as of this encounter
[2024-08-18 01:05] LABS: Appearance Urine Clear (Clear); Bilirubin Urine Negative (Negative); Blood Urine Negative (Negative); Color Urine Yellow; Glucose Urine UA Negative (Negative); Ketones Urine Negative (Negative); Leukocyte Esterase Urine Negative (Negative); Nitrite Urine Negative (Negative); Protein Urine Negative (Negative); Specific Gravity Urine > 1.045 (1.000-1.030); Urobilinogen Urine Negative (Negative); pH Urine 6.5 (4.5-7.5)
[2024-08-18 01:25] LABS: Folate (Folic Acid),Ser orPlas > 22.30 ng/ml (>5.38)
[2024-08-18 01:26] LABS: Vitamin B12 374 pg/ml (180-914)
[2024-08-18] MEDS ORDERED: DOCUSATE SODIUM 100 MG CAP PO PRN (01:29)
[2024-08-18] MEDS ORDERED: MECLIZINE HCL 25 MG TAB PO PRN (01:29)
[2024-08-18] MEDS ORDERED: metFORMIN HCL 500 MG TAB PO SCH (01:29)
[2024-08-18] MEDS ORDERED: ACETAMINOPHEN 325 MG TAB PO PRN (01:29)
[2024-08-18] MEDS ORDERED: PHARMACIST DISCHARGE MED REC CONSULT PRN (01:29)
[2024-08-18] MEDS ORDERED: ONDANSETRON INJ 2 MG/ML 2 ML VIAL IV PRN (01:29)
[2024-08-18] MEDS ORDERED: FLUTICASONE PROPIONATE NA SPR 16 GM BTL PRN (01:29)
[2024-08-18] MEDS ORDERED: MELATONIN 3 MG TAB PO PRN (01:29)
[2024-08-18] MEDS: ACETAMINOPHEN 325 MG TAB PO STA (01:35)
[2024-08-18 01:40] LABS: Amphetamines+Metham, Urine Neg (Neg); Barbiturates, Urine Neg (Neg); Benzodiazepine, Urine Neg (Neg); Cocaine, Urine Neg (Neg); Fentanyl, Urine Neg (Neg); MDMA (Ecstacy), Urine Neg (Neg); Marijuana, Urine Neg (Neg); Methadone, Urine Neg (Neg); Opiate, Urine Neg (Neg); Phencyclidine, Urine Neg (Neg)
[2024-08-18] MEDS ORDERED: CARBOHYDRATES FOR HYPOGLYCEMIA PO PRN (02:00)
[2024-08-18] MEDS ORDERED: DEXTROSE 50% 50 ML SYRINGE IV PRN (02:00)
[2024-08-18] MEDS ORDERED: GLUCOSE 40% GEL 15 GM TUBE PO PRN (02:00)
[2024-08-18] MEDS ORDERED: GLUCOSE 10 TAB/TUBE PO PRN (02:00)
[2024-08-18] MEDS ORDERED: GLUCAGON FOR INJ 1 MG VIAL SQ PRN (02:00)
[2024-08-18] MEDS: TAMSULOSIN HCL 0.4 MG CAP PO SCH (04:28)
[2024-08-18 05:18] VITALS: RESP 18
[2024-08-18 07:36] LABS: Basophils # (auto) 0.03 K/uL (0.00-0.20); Basophils % (auto) 0.7 %; Eosinophils # (auto) 0.17 K/uL (0.00-0.50); Hemoglobin 12.7 g/dl (14.0-18.0); Immature Granulocytes # (auto) 0.01 K/uL (0.01-0.20); Immature Granulocytes % (auto) 0.2 %; Lymphocytes # (auto) 1.26 K/uL (1.20-3.40); Lymphocytes % (auto) 29.4 %; Mean Corpuscular Hemoglobin 29.7 pg (25.0-34.0); Mean Corpuscular Hgb Conc 33.4 g/dL (32.0-36.0); Mean Corpuscular Volume 88.8 fL (80.0-100.0); Mean Platelet Volume 10.6 fL (9.4-12.4); Monocytes # (auto) 0.51 K/uL (0.11-0.59); Monocytes % (auto) 11.9 %; Neutrophils # (auto) 2.31 K/uL (1.40-6.50); Neutrophils % (auto) 53.8 %; Platelet Count 186 K/uL (130-400); RDW Standard Deviation 45.5 fL (36.4-46.3); Red Blood Count 4.28 M/uL (4.70-6.10); White Blood Count 4.29 K/ul (4.8-10.8)
[2024-08-18 07:47] LABS: BUN Creatinine Ratio 34.5 (10-20); Calcium 8.6 mg/dl (8.6-10.3); Creatinine Clr Calc Pharmacy 116.7 ml/min
--- NOTE | 2024-08-18 08:01 | Hospitalist Progress Note ---
Date of Service August 18, 2024 Assessment & Plan (1) TGA (transient global amnesia): (2) Stroke-like symptoms: (3) T2DM (type 2 diabetes mellitus): Plan Patient is a 78-year-old male with past medical history of PVD, HLD, thyroid cancer s/p thyroidectomy, COPD, vertigo, DM, prostate cancer. He presented to the ED due to complete loss of memory for the entire day 08/17. Patient is slowly regaining memory and stated he has had blurry vision, right face numbness, and difficulty ambulating throughout the day. Head CT, head CTA, neck CTA were unremarkable. No abnormalities found on laboratories in ED. Patient is being admitted for stroke workup including MRI. #transient global amnesia - CT head and Head/Neck CTA negative for acute changes - TSH WNL, EToH < 10.0 - Echo 2021 does not appear bubble study done, relatively normal results - EF 55 to 60%, mild TR - stroke without TNK order set (LKW >24 hrs prior to admission) - Q4H neuro checks, pt/ot evals - continue daily baby ASA 81mg daily - increase 5 Mg daily rosuvastatin to 10 Mg daily rosuvastatin - Allow for permissive hypertension with goal parameters 220/110 until MRI resulted - MRI ordered - lipid panel and A1C with AM labs - Confusion workup including UA, UDS, B12, folate, B1, and Lyme screen ordered #T2DM A1C 5.9% in 2021 - continue metformin 500 twice daily, defer SSI #hypothyroidism history of thyroid cancer s/p thyroidectomy, TSH stable - continue levothyroxine #COPD stable - continue home inhalers #prostate cancer - not currently in retention - continue Flomax - bladder scan prn #PVD/HLD - s/p left hallux amputation - continue statin and ASA #anemia - Hgb 13.8, baseline, stable VTE ppx: SCDs, low risk and defer with stroke workup Dispo: med/tele Admission and Anticipated Discharge Date Admission Date: August 18, 2024 Results & Data Results & Data Vital Signs (Past 12 Hours) Vital Signs Temp Pulse Pulse Resp BP BP Pulse Ox 08/18/24 07:18 69 08/18/24 05:31 79 08/18/24 05:11 36.4 C L 72 18 147/69 H 92 08/18/24 01:29 81 16 147/75 H 97 08/18/24 01:25 74 16 147/69 H 96 08/18/24 01:14 72 08/17/24 23:03 81 17 146/74 H 94 08/17/24 22:39 84 26 H 162/90 H 93 08/17/24 22:18 92 H 21 96 08/17/24 22:03 90 23 95 08/17/24 22:02 08/17/24 21:39 100 H 24 95 08/17/24 21:29 99 H 08/17/24 21:22 104/76 08/17/24 21:07 36.6 C 107 H 20 175/69 H 95 O2 Del Method 08/18/24 07:18 08/18/24 05:31 08/18/24 05:11 Room Air 08/18/24 01:29 Room Air 08/18/24 01:25 Room Air 08/18/24 01:14 08/17/24 23:03 Room Air 08/17/24 22:39 08/17/24 22:18 08/17/24 22:03 Room Air 08/17/24 22:02 Room Air 08/17/24 21:39 08/17/24 21:29 08/17/24 21:22 08/17/24 21:07 Room Air PG Care Time/CCT Total # of Minutes Spent Total Time Spent with Patient: Total time spent is greater than 50% in coordination of care (as documented) at patient's floor/unit and/or counseling patient: Coding Diagnoses TGA (transient global amnesia) G45.4 Stroke-like symptoms R29.90 T2DM (type 2 diabetes mellitus) E11.9
[2024-08-18 08:46] LABS: Estimated Average Glucose 114 mg/dl; Hemoglobin A1C 5.6 % (4.5-5.6)
[2024-08-18] MEDS: ROSUVASTATIN CALCIUM 10 MG TAB PO SCH (10:01)
[2024-08-18] MEDS: ASPIRIN 81 MG ECTAB PO SCH (10:01)
[2024-08-18] MEDS: LEVOTHYROXINE SODIUM 175 MCG TABLET PO SCH (10:01)
[2024-08-18] MEDS: INSULIN ASPART PER UNIT CHARGE SC SCH (10:02)
--- NOTE | 2024-08-18 12:24 | Magnetic Resonance Report ---
MR brain wo con CLINICAL HISTORY: stroke workup COMPARISON STUDY: CT scan yesterday and MRI of 07/06/2021 FINDINGS: There is motion artifact. No restricted diffusion seen to suggest acute infarction. No mass effect, midline shift, or hydrocephalus. There is progressive diffuse paranasal sinus mucosal thicke kyara. There are mucous retention cysts in the maxillary sinuses. There is fluid in multiple right mas toid air cells, increased. There is fluid in a few left mastoid air cells. There are a few stable sca ttered small foci of increased FLAIR signal intensity in the periventricular white matter which are n onspecific, but usually represent chronic small vessel ischemic change. IMPRESSION: 1. No evidence of acute infarction. 2. Progressive paranasal sinus disease and progressive fluid at the right mastoid air cells. 3. Otherwise as described. ACT 112: Negative or not required by law. Electronically signed by: Raghavendra Samayoa M.D. 08/18/2024 12:22 PM
--- NOTE | 2024-08-18 12:33 | Electrocardiogram Report ---
Test Reason : Blood Pressure : */* mmHG Vent. Rate : 95 BPM Atrial Rate : 95 BPM P-R Int : 158 ms QRS Dur : 78 ms QT Int : 356 ms P-R-T Axes : 57 26 13 degrees QTcB Int : 447 ms Sinus rhythm with frequent Premature ventricular complexes Nonspecific ST abnormality Abnormal ECG When compared with ECG of 17-Jul-2024 01:23, Premature ventricular complexes are now Present Confirmed by Serg Pacheco ([id number]) on 08/18/2024 12:33:44 PM Referred By: REFERRED SELF Confirmed By: Segr Pacheco
[2024-08-18 15:50] VITALS: BP 144/74; PULSE 78; TEMP 97.9; O2SAT 93
--- NOTE | 2024-08-18 16:46 | Discharge Summary ---
Discharge Summary Date of Service August 18, 2024 Principal Dx & Hospital Course #1 = Principal Diagnosis (1) TGA (transient global amnesia): (2) Stroke-like symptoms: (3) T2DM (type 2 diabetes mellitus): Plan Patient is a 78-year-old male with past medical history of PVD, HLD, thyroid cancer s/p thyroidectomy, COPD, vertigo, DM, prostate cancer. He presented to the ED due to complete loss of memory for the entire day 08/17. Patient is slowly regaining memory and stated he has had blurry vision, right face numbness, and difficulty ambulating throughout the day. Head CT, head CTA, neck CTA were unremarkable. No abnormalities found on laboratories in ED. Patient is being admitted for stroke workup including MRI. #transient global amnesia - CT head and Head/Neck CTA negative for acute changes - TSH WNL, EToH < 10.0 - Echo 2021 does not appear bubble study done, relatively normal results - EF 55 to 60%, mild TR - MRI negative for acute infarction - continue daily baby ASA 81mg daily - cont 10 mg daily rosuvastatin - A1c: 5.6 - UA neg, UDS neg, B12 / folate wnl - B1 and lyme pending (outpatient follow up) - PT / OT recs outpatient therapy - follow up with outpatient neurology #Sinus congestion - MRI showing Progressive paranasal sinus disease and progressive fluid at the right mastoid air cells. - cont anti-histamines, nasal decongestion - outpatient follow up with PCP #T2DM - continue metformin 500 twice daily, defer SSI #hypothyroidism history of thyroid cancer s/p thyroidectomy, TSH stable - continue levothyroxine #COPD stable - continue home inhalers #prostate cancer - not currently in retention - continue Flomax - bladder scan prn #PVD/HLD - s/p left hallux amputation - continue statin and ASA #anemia - Hgb 13.8, baseline, stable Admission HPI Per Admitting Provider Patient is a 78-year-old male with past medical history of PVD, HLD, thyroid cancer s/p thyroidectomy, COPD, vertigo, DM, prostate cancer. He presented to the ED due to complete loss of memory for the entire day 08/17. Patient is slowly regaining memory and stated he has had blurry vision, right face numbness, and difficulty ambulating throughout the day. Head CT, head CTA, neck CTA were unremarkable. No abnormalities found on laboratories in ED. Patient is being admitted for stroke workup including MRI. Patient seen at bedside with his neighbor present. He stated the last thing he remembers is going to bed night. He woke up today and thought it was Tuesday morning. He turned on his TV and saw it was 08/17 and knew that it was the day of Tuesday and thought that his TV and clocks were wrong. Patient stated as his memories came back throughout the day he remembers having blurry vision, difficulty ambulating, and right face numbness. The symptoms have since improved however still present. He also endorses a headache. He does endorse diarrhea few days ago, however resolved. He denies any numbness or tingling of extremities, facial droop, chest pain, worsening shortness of breath (has dyspnea at baseline with COPD), abdominal pain, nausea. Patient is a former smoker however and no longer smokes. He believes he took his home and occasions this morning but is unsure. Patient stated he does somewhat remember coming into the ED and things that have happened here however has poor memory of them. His neighbor provided the following history. She stated she received a phone call from the patient's ex son-in-law stating that the patient was worked up thinking he dropped his granddaughter off at the wrong place. His neighbor went to check on him and found him to be confused. His neighbor stated he was walking outside his usual earlier today. She brought him into the ED. Discharge Exam Gen: NAD, sitting in chair comfortable HEENT: NC/AT, anicteric, MMM CVS: s1s2nl, RRR Lungs: CTAB Abd: nl bowel sounds, soft, NT : no jernigan Ext: no edema Neuro: AAOx3, no deficit Psych: calm/ cooperative Discharge Plan Discharge Items Patient Disposition: Home - Self-Care Reason For Visit: TRANSIENT GLOBAL AMNESIA Discharge Diagnosis: TGA Activity: Resume your previous activity Non-emergency contact: Primary Care Provider Call non-emergency contact if: you have any medication questions Follow-up/Referrals: PCP,NO [Primary Care Provider] - Manfred Portillo MD [Physician] - Diet: Carb Consistent or DM2 and Heart Healthy Addtl Attending Provider Instructions: - follow up with neurology as outpatient - follow up with PCP as outpatient - you need outpatient therapy. please have your primary care doctor order this for you. Pending Studies at Discharge: Yes Studies:: B1 level, lyme test Stand-Alone Forms: My [facility], Smoking Cessation Medications and DC Order Prescriptions: New rosuvastatin 10 mg Tablet 10 mg PO QAM Qty: 30 0RF cetirizine [Zyrtec] 10 mg tablet 10 mg PO DAILY Qty: 10 0RF Continued metformin 500 mg tablet 500 mg PO BID cinnamon bark [Cinnamon] 500 mg capsule 1,000 mg PO DAILY calcium carbonate [Calcium 600] 600 mg calcium (1,500 mg) tablet 600 mg PO BID fluticasone propionate 50 mcg/actuation spray,suspension 1 spray intranasal BID PRN (Reason: Shortness Of Breath) Rx Instructions: administer into each nostril levothyroxine 150 mcg tablet See Rx Instructions PO .COMPLEX Qty: 45 3RF Rx Instructions: take 1 tab by mouth every other day alternating with 175mcg tablet PO ; levothyroxine 175 mcg tablet See Rx Instructions PO .COMPLEX Qty: 45 3RF Rx Instructions: take 1 tab by mouth every other day alternating with 150mcg tab PO ; multivitamin [Daily Multi-Vitamin] tablet 1 tab PO DAILY ipratropium-albuterol 0.5 mg-3 mg(2.5 mg base)/3 mL Solution For Nebulization 3 ml INHALATION Q6H PRN (Reason: Shortness Of Breath) aspirin 81 mg Tablet,Delayed Release (Dr/Ec) 81 mg PO DAILY meclizine 25 mg Tablet 25 mg PO TID PRN (Reason: dizziness) Qty: 10 0RF tamsulosin 0.4 mg capsule 0.4 mg PO QPM Discontinued rosuvastatin 5 mg tablet 5 mg PO DAILY Discharge Orders: Discharge Order (Routine); Ordered 08/18/24 Ordered By: Marcia Cintron Admission Data Admit Date/Time: 08/18/24 00:42 Attending Provider: Marcia Cintron Admit Provider: Ada Kim Primary Care Provider: PCP,NO Other Providers: Ada Kim Hospital Stay Data Consultations 08/17/24 23:46 ED Decision to Admit Stat Diagnostic Imagining Performed 08/17/24 22:17 CT angio head w con Stat CT angio neck with con Stat CT head/brain wo con Stat 08/18/24 00:24 MRI Brain [MR brain wo con] Routine Discharge Instructions Given to Patient (Per Discharging Provider) - follow up with neurology as outpatient - follow up with PCP as outpatient - you need outpatient therapy. please have your primary care doctor order this for you. Total Time Total Time Spent Total Time Spent (In Minutes): 55 Coding Level of Care Code 83797 INP/OBS DISCH >30 MIN Diagnoses TGA (transient global amnesia) G45.4 Stroke-like symptoms R29.90 T2DM (type 2 diabetes mellitus) E11.9
[2024-08-18] MEDS ORDERED: STROKE PATIENT DISCHARGE STA (16:51)
[2024-08-19] MEDS ORDERED: LEVOTHYROXINE SODIUM 150 MCG TABLET PO SCH (06:30)
== END 2024-08-18 18:20 | disposition home or self-care (01) ==
LOC: ED 21:03 → EDINP 21:03 → SUATTDRO 08-18 00:42 → 2N 08-18 01:29